=== PATIENT | female | born 1945 | race Caucasian/White ===

== ENCOUNTER 2019-10-12 11:40 | Emergency (ER) | payer OTHER, MEDICARE ==
[2019-10-12 11:56] VITALS: TEMP 98.5
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
[2019-10-12 14:45] VITALS: BP 123/78; PULSE 71; RESP 16
== END 2019-10-12 14:44 | disposition home or self-care (01) ==
LOC: EC 11:40
DX: M54.9 Dorsalgia, unspecified (principal); V43.62XA Car passenger injured in collision with other type car in traffic accident, initial encounter; W22.12XA Striking against or struck by front passenger side automobile airbag, initial encounter; Y92.410 Unspecified street and highway as the place of occurrence of the external cause; Y99.8 Other external cause status
CPT/HCPCS: 70450; 71046; 72072; 72125; 99284

== ENCOUNTER → 2020-02-29 | Outpatient (CLI) | payer MEDICARE, OTHER ==
--- NOTE | 2020-02-29 10:10 | US ---
EXAMINATION TYPE: US abdomen complete DATE OF EXAM: 02/29/2020 COMPARISON: NONE CLINICAL HISTORY: R14.0 Abdominal distention. Splenectomy 25-30 years ago, bloating, indigestion EXAM MEASUREMENTS: Liver Length: 14.1 cm Gallbladder Wall: 0.3 cm CBD: 0.4 cm Spleen: Surgically absent Right Kidney: 9.6 x 4.0 x 4.4 cm Left Kidney: 10.3 x 5.3 x 4.4 cm Pancreas: Obscured by bowel gas Liver: heterogeneous Gallbladder: no evidence of stones Evidence for sonographic Venegas's sign: no CBD: wnl Spleen: not visualized Right Kidney: cystic area upper pole = 1.0 x 1.0 x 1.0cm Left Kidney: no evidence of hydronephrosis or mass Upper IVC: wnl Abd Aorta: calcifications noted IMPRESSION: 1. Heterogeneous pattern to the liver is nonspecific could be seen with hepatic steatosis, diffuse he patocellular disease or hepatitis. Recommend CT scan of the abdomen. 2. No evidence of gallstones. 3. Simple appearing right renal cyst.
== END | disposition home or self-care (01) ==
LOC: RADUSWWP 09:20
PROVIDERS: ATTEND Internal Medicine
DX: N28.1 Cyst of kidney, acquired (principal); R93.2 Abnormal findings on diagnostic imaging of liver and biliary tract
CPT/HCPCS: 76700

== ENCOUNTER → 2020-04-10 | Outpatient (CLI) | payer MEDICARE, OTHER ==
--- NOTE | 2020-04-10 15:07 | MR ---
EXAMINATION TYPE: MR liver wo/w con DATE OF EXAM: 04/10/2020 COMPARISON: Correlation ultrasound 02/29/2020 HISTORY: 75-year-old female K76.0, Liver Steatosis Technique: Multiplanar, multisequence images of the abdomen were obtained before and after administra tion of 5.5 mL intravenous Gadavist gadolinium contrast. FINDINGS: Heart normal size without pericardial effusion. No pleural effusion. Liver normal size measuring 15.3 cm. No focal lesion seen. No biliary ductal dilatation. Portal venou s system is patent. On opposed phase T1-weighted sequences, there are geographic regions of signal drop within the liver of up to 200 signal intensity. Gallbladder, adrenal glands, left kidney, and pancreas show no gross abnormality. Benign 1.1 cm corti lucas cyst in each ureter and kidney. Spleen is small measuring only 2.7 cm, possible postsurgical/posttraumatic etiology. No upper abdominal lymphadenopathy, ascites fluid, gross bowel abnormality. IMPRESSION: 1. Signal changes within the liver compatible with geographic areas of hepatic steatosis. 2. No gallstones or biliary ductal dilatation. 3. Small nodular spleen measuring 2.7 cm, possible postsurgical or posttraumatic etiology. Clinically correlate.
== END | disposition home or self-care (01) ==
LOC: RADMRIMAIN 12:11
PROVIDERS: ATTEND Internal Medicine
DX: D73.89 Other diseases of spleen (principal)
CPT/HCPCS: 74183; A9585

== ENCOUNTER 2022-07-27 20:31 | Emergency (ER) | payer MEDICARE, OTHER ==
[2022-07-27 20:38] VITALS: RESP 18; TEMP 98.6
--- NOTE | 2022-07-27 20:59 | ED ---
General Adult HPI - General Chief complaint: Fall Stated complaint: Fall, shoulder pain Time Seen by Provider: 07/27/22 20:39 Source: patient, RN notes reviewed Mode of arrival: ambulatory Limitations: no limitations - History of Present Illness Initial comments: 77-year-old female past medical history of asthma presents to the emergency department with chief complaint of left shoulder pain. Patient states that she tripped on her shoe and fell on her left shoulder 5 days ago. She has not been seen for this. She states that she thought it would get better on its own. She has significant ecchymosis over the left shoulder. She states she has been Aleve for pain which is not helping. Denies numbness, tingling in her upper extremities. Denies hitting her head, loss consciousness, blood thinners. - Related Data Previous Rx's Medication Instructions Recorded Acetaminophen-Codeine 300-30mg 1 tab PO Q6H PRN #12 tablet 07/27/22 [Tylenol #3] Allergies Allergy/AdvReac Type Severity Reaction Status Date / Time No Known Allergies Allergy Verified 07/27/22 20:33 Review of Systems ROS Statement: Those systems with pertinent positive or pertinent negative responses have been documented in the HPI. ROS Other: All systems not noted in ROS Statement are negative. Past Medical History Past Medical History: Asthma History of Any Multi-Drug Resistant Organisms: None Reported Past Surgical History: Adenoidectomy, Tonsillectomy Additional Past Surgical History / Comment(s): splenectomy Past Psychological History: No Psychological Hx Reported Smoking Status: Former smoker Past Alcohol Use History: Occasional Past Drug Use History: None Reported General Exam Limitations: no limitations General appearance: alert, in no apparent distress Head exam: Present: atraumatic, normocephalic, normal inspection Eye exam: Present: normal appearance Respiratory exam: Present: normal lung sounds bilaterally. Absent: respiratory distress, wheezes, rales, rhonchi, stridor Cardiovascular Exam: Present: regular rate, normal rhythm, normal heart sounds. Absent: systolic murmur, diastolic murmur, rubs, gallop, clicks Extremities exam: Present: full ROM (Painful but full range of motion), tendern ess (left shoulder tenderness ), normal capillary refill, other (radial pulses 2+). Absent: normal inspection (ecchymosis left shoulder ) Skin exam: Present: other (Ecchymosis to left shoulder) Course Vital Signs 07/27/22 20:33 Temperature 98.6 F Pulse Rate 98 Respiratory 18 Rate Blood Pressure 144/76 O2 Sat by Pulse 96 Oximetry Medical Decision Making - Medical Decision Making Was pt. sent in by a medical professional or institution (, MIO, MANAGER SAS, urgent care, hospital, or skilled nursing...) When possible be specific @ -[No] Did you speak to anyone other than the patient for history (EMS, parent, family, police, friend...)? What history was obtained from this source @ -[No] Did you review nursing and triage notes (agree or disagree)? Why? @ -[I reviewed and agree with nursing and triage notes] Were old charts reviewed (outside hosp., previous admission, EMS record, old EKG, old radiological studies, urgent care reports/EKG's, skilled nursing records)? Report findings @ -[No old charts were reviewed] Differential Diagnosis (chest pain, altered mental status, abdominal pain women, abdominal pain men, vaginal bleeding, weakness, fever, dyspnea, syncope, headache, dizziness, GI bleed, back pain, seizure, CVA, palpatations, mental health, musculoskeletal)? @ -[Differential Musculoskeletal Muscular strain, contusion, ligament sprain, fracture, arthritis, septic arthritis, bursitis, cellulitis, muscle spasm, nerve compression, DVT, arterial occlusion, herpes zoster, electrolyte abnormality, tumor.... This is not meant to be in all inclusive list] EKG interpreted by me (3pts min.). @ -[None] X-rays interpreted by me (1pt min.). @ -[X-ray left shoulder showed mildly displaced distal clavicle fracture] CT interpreted by me (1pt min.). @ -[None done] U/S interpreted by me (1pt. min.). @ -[None done] What testing was considered but not performed or refused? (CT, X-rays, U/S, labs)? Why? @ -[None] What meds were considered but not given or refused? Why? @ -[None] Did you discuss the management of the patient with other professionals (professionals i.e. , MIO, MANAGER SAS, lab, RT, psych nurse, web content & social media manager, product manager financial services, teacher, correction officer head, family independence case manager)? Give summary @ -[No] Was smoking cessation discussed for >3mins.? @ -[No] Was critical care preformed (if so, how long)? @ -[No] Were there social determinants of health that impacted care today? How? (Homelessness, low income, unemployed, alcoholism, drug addiction, transportation, low edu. Level, literacy, decrease access to med. care, custodial, rehab)? @ -[No] Was there de-escalation of care discussed even if they declined (Discuss DNR or withdrawal of care, Hospice)? DNR status @ -[No] What co-morbidities impacted this encounter? (DM, HTN, Smoking, COPD, CAD, Cancer, CVA, ARF, Chemo, Hep., AIDS, mental health diagnosis, sleep apnea, morbid obesity)? @ -[None] Was patient admitted / discharged? Hospital course, mention meds given and route, prescriptions, significant lab abnormalities, going to OR and other pertinent info. @ -[Patient presented to the emergency department chief complaint of left shoulder pain. She states it started 5 days ago when she fell on it. She states this has a mechanical fall where she tripped over her feet. On exam, patient has significant ecchymosis to the left shoulder and distal clavicle. X- ray was obtained which showed mildly displaced distal clavicle fracture. Patient was given starter pack for Tylenol #3 with codeine. Prescription sent to pharmacy for 3 days of tylenol #3. Patient advised to follow-up on outpatient basis with her primary care physician and orthopedics. Case discussed with my attending, Dr. Griffith. Patient discharged in stable condition. ] Undiagnosed new problem with uncertain prognosis? @ -[No] Drug Therapy requiring intensive monitoring for toxicity (Heparin, Nitro, Insulin, Cardizem)? @ -[No] Were any procedures done? @ -[No] Diagnosis/symptom? @ -[Distal clavicle fracture] Acute, or Chronic, or Acute on Chronic? @ -Acute Uncomplicated (without systemic symptoms) or Complicated (systemic symptoms)? @ -Uncomplicated Side effects of treatment? @ -[No] Exacerbation, Progression, or Severe Exacerbation? @ -[No] Poses a threat to life or bodily function? How? (Chest pain, USA, NC, pneumonia, PE, COPD, DKA, ARF, appy, cholecystitis, CVA, Diverticulitis, Homicidal, Suicidal, threat to staff... and all critical care pts) @ -[No] Disposition Clinical Impression: Closed fracture of distal clavicle Disposition: HOME SELF-CARE Condition: Stable Instructions (If sedation given, give patient instructions): Fall Prevention (ED) Additional Instructions: Please return to the Emergency Department if symptoms worsen or any other concerns. Prescriptions: Acetaminophen-Codeine 300-30mg [Tylenol #3] 1 tab PO Q6H PRN #12 tablet PRN Reason: pain Is patient prescribed a controlled substance at d/c from ED?: Yes If prescribed controlled substance>3 days was MAPS reviewed?: Prescribed <3 Days Referrals: Valentine Leroy MD [Primary Care Provider] - 1-2 days Time of Disposition: 21:55
--- NOTE | 2022-07-27 21:38 | XR ---
EXAMINATION TYPE: XR shoulder complete LT DATE OF EXAM: 07/27/2022 9:11 PM INDICATION: Patient age:Female; 77 years old; Reason for study: fall on shoulder 5 days ago; COMPARISON: None TECHNIQUE: The left shoulder was examined in AP, internally rotated and scapular Y projections. FINDINGS: There is a distal left clavicle fracture with displacement 6 mm. No additional fractures identified. The chest is within normal limits. The humerus is intact. IMPRESSION: Distal left clavicle fracture with mild displacement.
[2022-07-27] MEDS ORDERED: ACET/COD 300 MG/30 MG STARTER PACK 6 TAB BTL PO STA (21:45)
[2022-07-27 22:14] VITALS: BP 137/78; PULSE 72
== END 2022-07-27 22:15 | disposition home or self-care (01) ==
LOC: EC 20:31
DX: S42.032A Displaced fracture of lateral end of left clavicle, initial encounter for closed fracture (principal); J45.909 Unspecified asthma, uncomplicated; Z87.891 Personal history of nicotine dependence; W01.0XXA Fall on same level from slipping, tripping and stumbling without subsequent striking against object, initial encounter
CPT/HCPCS: 99283

== ENCOUNTER 2022-09-17 13:23 | Inpatient (IN) | payer MEDICARE, OTHER ==
[2022-09-17] MEDS ORDERED: LORazepam 2 MG/ML INJ IV STA (13:41)
[2022-09-17] MEDS ORDERED: SODIUM CHLORIDE 0.9% 1,000 ML IV ONE (13:42)
[2022-09-17 14:03] LABS: Basophils % (A) 0 %; Eosinophils # (A) 0.3 k/uL (0-0.7); Eosinophils % (A) 2 %; HCT 40.6 % (34.0-46.0); HGB 13.5 gm/dL (11.4-16.0); Lymphocytes # (A) 0.9 k/uL (1.0-4.8); Lymphocytes % (A) 6 %; MCH 37.1 pg (25.0-35.0); MCHC 33.3 g/dL (31.0-37.0); MCV 111.6 fL (80.0-100.0); Macrocytosis Marked; Mean Platelet Volume 11.5; Monocytes # (A) 0.9 k/uL (0-1.0); Monocytes % (A) 6 %; Neutrophils # (A) 13.6 k/uL (1.3-7.7); Neutrophils % (A) 85 %; Platelet Count 147 k/uL (150-450); RBC 3.64 m/uL (3.80-5.40)
[2022-09-17 14:18] LABS: ALT 21 U/L (4-34); AST 43 U/L (14-36); African American GFR (CKD) >90 (>60 ml/min/1.73 sqM); Albumin 5.3 g/dL (3.5-5.0); Alkaline Phosphatase 70 U/L (38-126); Anion Gap 21 mmol/L; Blood Urea Nitrogen 30 mg/dL (7-17); Calcium 10.3 mg/dL (8.4-10.2); Carbon Dioxide 17 mmol/L (22-30); Chloride 103 mmol/L (98-107); Creatine Kinase 327 U/L (30-135); Glucose 118 mg/dL (74-99); Magnesium 1.9 mg/dL (1.6-2.3); Non-African American GFR(CKD) >90 (>60 ml/min/1.73 sqM); Potassium 4.3 mmol/L (3.5-5.1); Sodium 141 mmol/L (137-145); Total Bilirubin 2.2 mg/dL (0.2-1.3)
--- NOTE | 2022-09-17 14:26 | ED ---
General Adult HPI - General Chief complaint: Weakness Stated complaint: AMS Time Seen by Provider: 09/17/22 13:30 Source: patient, EMS, RN notes reviewed, old records reviewed Mode of arrival: EMS Limitations: altered mental status, physical limitation - History of Present Illness Initial comments: 77-year-old female presenting for evaluation. History is somewhat limited. Apparently neighbors had called paramedics with concerns for their neighbor, f requent falls, alcohol use. Patient states her last drink was 2 days ago. She is able to give significant history but I am uncertain of the accuracy of her history. She states that she fell within the past week on her left shoulder. There was head injury. Patient states she was not drinking over the past 2 days because she was preparing for a [employer] service. She states she typically drinks 2-3 drinks at a local bar. She denies chest pain or abdominal pain. Denies lower extremity pain. She is noted to have significant bruising over the left shoulder and pain with range of motion. - Related Data Home Medications Medication Instructions Recorded Confirmed Budesonide/Formoterol Fumarate 2 puff INHALATION RT-BID 09/17/22 09/17/22 [Symbicort 160-4.5 Mcg Inhaler] Previous Rx's Medication Instructions Recorded Acetaminophen-Codeine 300-30mg 1 tab PO Q6H PRN #12 tablet 07/27/22 [Tylenol #3] Allergies Allergy/AdvReac Type Severity Reaction Status Date / Time No Known Allergies Allergy Verified 09/17/22 14:14 Review of Systems ROS Statement: Those systems with pertinent positive or pertinent negative responses have been documented in the HPI. ROS Other: All systems not noted in ROS Statement are negative. Past Medical History Past Medical History: Asthma History of Any Multi-Drug Resistant Organisms: None Reported Past Surgical History: Adenoidectomy, Tonsillectomy Additional Past Surgical History / Comment(s): splenectomy Past Psychological History: No Psychological Hx Reported Smoking Status: Former smoker Past Alcohol Use History: Occasional Past Drug Use History: None Reported General Exam Limitations: altered mental status, physical limitation General appearance: alert, anxious, in distress Head exam: Present: atraumatic, normocephalic Eye exam: Present: normal appearance, PERRL Neck exam: Present: normal inspection. Absent: tenderness, meningismus Respiratory exam: Present: normal lung sounds bilaterally. Absent: respiratory distress, wheezes Cardiovascular Exam: Present: regular rate, normal rhythm GI/Abdominal exam: Present: soft. Absent: distended, tenderness, guarding Extremities exam: Absent: full ROM (Ecchymosis over the entire left shoulder decreased range of motion, ecchymosis appears several days old) Neurological exam: Present: alert, oriented X3, CN II-XII intact. Absent: motor sensory deficit Psychiatric exam: Present: anxious Skin exam: Present: warm, dry Course Vital Signs 09/17/22 09/17/22 13:31 14:39 Temperature 97.8 F Pulse Rate 98 98 Respiratory 18 18 Rate Blood Pressure 158/87 156/75 O2 Sat by Pulse 100 100 Oximetry - Reevaluation(s) Reevaluation #1: 09/17/22 15:02 Patient is being admitted for dehydration, alcohol withdrawal, not for her humerus fracture. Orthopedics will be placed on consult for evaluation. Medical Decision Making - Medical Decision Making Was pt. sent in by a medical professional or institution (, PA, FEED MILL SUPERVISOR, urgent care, hospital, or longterm...) When possible be specific @ -[No] Did you speak to anyone other than the patient for history (EMS, parent, family, police, friend...)? What history was obtained from this source @ -[No] Did you review nursing and triage notes (agree or disagree)? Why? @ -[I reviewed and agree with nursing and triage notes] Were old charts reviewed (outside hosp., previous admission, EMS record, old EKG, old radiological studies, urgent care reports/EKG's, longterm records)? Report findings @ -[No old charts were reviewed] Differential Diagnosis (chest pain, altered mental status, abdominal pain women, abdominal pain men, vaginal bleeding, weakness, fever, dyspnea, syncope, headache, dizziness, GI bleed, back pain, seizure, CVA, palpatations, mental health, musculoskeletal)? @ -[not applicable] EKG interpreted by me (3pts min.). @ -[EKG: Sinus rhythm, tremor artifact limiting assessment, rate of 90, MI interval 122, QRS duration 101, QTC [address] segment elevation. X-rays interpreted by me (1pt min.). @ -[X-ray of the left shoulder showing a displaced proximal humerus fracture x- ray of the chest is negative for focal pneumonia, no pneumothorax, no traumatic injury] CT interpreted by me (1pt min.). @ -[CT brain and C-spine performed negative for intracranial hemorrhage or mass effect, no cervical fracture subluxation U/S interpreted by me (1pt. min.). @ -[None done] What testing was considered but not performed or refused? (CT, X-rays, U/S, labs)? Why? @ -[None] What meds were considered but not given or refused? Why? @ -[None] Did you discuss the management of the patient with other professionals (professionals i.e. Dr., PA, FEED MILL SUPERVISOR, lab, RT, psych nurse, social science research assistant, furnace process supervisor, teacher, textile technical officer, major case detective)? Give summary @ -[Dr. Leroy, and Dr. Anand Was smoking cessation discussed for >3mins.? @ -[No] Was critical care preformed (if so, how long)? @ -[No] Were there social determinants of health that impacted care today? How? (Homelessness, low income, unemployed, alcoholism, drug addiction, transportation, low edu. Level, literacy, decrease access to med. care, usp, rehab)? @ -[Alcoholism Was there de-escalation of care discussed even if they declined (Discuss DNR or withdrawal of care, Hospice)? DNR status @ -[No] What co-morbidities impacted this encounter? (DM, HTN, Smoking, COPD, CAD, Cancer, CVA, ARF, Chemo, Hep., AIDS, mental health diagnosis, sleep apnea, morbid obesity)? @ -[Alcoholism Was patient admitted / discharged? Hospital course, mention meds given and route, prescriptions, significant lab abnormalities, going to OR and other pertinent info. @ -[77-year-old female with altered mental status, tremor, suspect alcohol withdrawal. Patient is having some hallucinations, suspect a degree of delirium tremens. She also has significant trauma to the left shoulder x-ray showing a displaced proximal humerus fracture. Additional imaging of the brain and C- spine is negative for traumatic injury. Patient placed on benzodiazepines for alcohol withdrawal. She is placed on IV fluids for hydration. She'll be admitted to the ICU. Undiagnosed new problem with uncertain prognosis? @ -[No] Drug Therapy requiring intensive monitoring for toxicity (Heparin, Nitro, Insulin, Cardizem)? @ -[No] Were any procedures done? @ -[No] Diagnosis/symptom? @ -[Alcohol withdrawal, impending DTs, left humerus fracture Acute, or Chronic, or Acute on Chronic? @ -[Acute Uncomplicated (without systemic symptoms) or Complicated (systemic symptoms)? @ -[Complicated Side effects of treatment? @ -[No] Exacerbation, Progression, or Severe Exacerbation? @ -[No] Poses a threat to life or bodily function? How? (Chest pain, USA, MD, pneumonia, PE, COPD, DKA, ARF, appy, cholecystitis, CVA, Diverticulitis, Homicidal, Suicidal, threat to staff... and all critical care pts) @ -[Yes, delirium tremens - Lab Data Result diagrams: 09/17/22 13:48 09/17/22 13:48 Lab Results 09/17/22 09/17/22 09/17/22 Range/Units 13:48 13:48 13:48 WBC 16.0 H (3.8-10.6) k/uL RBC 3.64 L (3.80-5.40) m/uL Hgb 13.5 (11.4-16.0) gm/dL Hct 40.6 (34.0-46.0) % MCV 111.6 H (80.0-100.0) fL MCH 37.1 H (25.0-35.0) pg MCHC 33.3 (31.0-37.0) g/dL RDW 14.0 (11.5-15.5) % Plt Count 147 L (150-450) k/uL MPV 11.5 Macrocytosis Marked A PT 9.4 (9.0-12.0) sec INR 0.9 (<1.2) APTT 21.0 L (22.0-30.0) sec Sodium 141 (137-145) mmol/L Potassium 4.3 (3.5-5.1) mmol/L Chloride 103 (98-107) mmol/L Carbon Dioxide 17 L (22-30) mmol/L Anion Gap 21 mmol/L BUN 30 H (7-17) mg/dL Creatinine 0.48 L (0.52-1.04) mg/dL Est GFR (CKD-EPI)AfAm >90 (>60 ml/min/1.73 sqM) Est GFR (CKD-EPI)NonAf >90 (>60 ml/min/1.73 sqM) Glucose 118 H (74-99) mg/dL Plasma Lactic Acid Farzad (0.7-2.0) mmol/L Calcium 10.3 H (8.4-10.2) mg/dL Magnesium 1.9 (1.6-2.3) mg/dL Total Bilirubin 2.2 H (0.2-1.3) mg/dL AST 43 H (14-36) U/L ALT 21 (4-34) U/L Alkaline Phosphatase 70 (38-126) U/L Creatine Kinase 327 H (30-135) U/L Total Protein 9.0 H (6.3-8.2) g/dL Albumin 5.3 H (3.5-5.0) g/dL 09/17/22 Range/Units 13:48 WBC (3.8-10.6) k/uL RBC (3.80-5.40) m/uL Hgb (11.4-16.0) gm/dL Hct (34.0-46.0) % MCV (80.0-100.0) fL MCH (25.0-35.0) pg MCHC (31.0-37.0) g/dL RDW (11.5-15.5) % Plt Count (150-450) k/uL MPV Macrocytosis PT (9.0-12.0) sec INR (<1.2) APTT (22.0-30.0) sec Sodium (137-145) mmol/L Potassium (3.5-5.1) mmol/L Chloride (98-107) mmol/L Carbon Dioxide (22-30) mmol/L Anion Gap mmol/L BUN (7-17) mg/dL Creatinine (0.52-1.04) mg/dL Est GFR (CKD-EPI)AfAm (>60 ml/min/1.73 sqM) Est GFR (CKD-EPI)NonAf (>60 ml/min/1.73 sqM) Glucose (74-99) mg/dL Plasma Lactic Acid Farzad 2.0 (0.7-2.0) mmol/L Calcium (8.4-10.2) mg/dL Magnesium (1.6-2.3) mg/dL Total Bilirubin (0.2-1.3) mg/dL AST (14-36) U/L ALT (4-34) U/L Alkaline Phosphatase (38-126) U/L Creatine Kinase (30-135) U/L Total Protein (6.3-8.2) g/dL Albumin (3.5-5.0) g/dL Critical Care Time Critical Care Time: Yes Total Critical Care Time: 35 Disposition Clinical Impression: Dehydration, Humerus fracture, Alcohol withdrawal delirium Disposition: ADMITTED IP TO THIS [facility] Condition: Serious Is patient prescribed a controlled substance at d/c from ED?: No Referrals: Valentine Leroy MD [Primary Care Provider] - 1-2 days Time of Disposition: 15:01
[2022-09-17 14:28] LABS: INR 0.9 (<1.2); Prothrombin Time 9.4 sec (9.0-12.0)
--- NOTE | 2022-09-17 14:31 | CT ---
EXAMINATION TYPE: CT brain cspine wo con CT DLP: 1382.5 mGycm, Automated exposure control for dose reduction was used. DATE OF EXAM: 09/17/2022 2:15 PM COMPARISON: 10/12/2019 CLINICAL INDICATION:Female, 77 years old with history of fall; Fall, AMS TECHNIQUE: Brain: Multiple axial CT images of the brain were obtained without IV contrast. Cspine: Axial CT images from the skull base to the inferior aspect of T2 we obtained without intraven ous contrast. Coronal and sagittal reformatted images were also reviewed. FINDINGS: Brain: Extra-axial spaces: No abnormal extra-axial fluid collections. Ventricular system: Dilatation in proportion to cerebral atrophy. Cerebral parenchyma: Cerebral atrophy. No acute intraparenchymal hemorrhage or mass effect. The vásquez -white junction is well differentiated. Scattered hypoattenuating areas are seen within the white mat ter. Cerebellum: Unremarkable. Mass effect: No evidence of midline shift. Intracranial vasculature: Atherosclerotic calcifications of the intracranial vessels. Soft tissues: Normal. Calvarium/osseous structures: No depressed skull fracture. Paranasal sinuses and mastoid air cells: Clear. Visualized orbits: Bilateral aphakia Cervical spine: Fracture: None. Osseous structures: Multilevel degenerative disc disease changes with endplate spurring and disc oste ophyte complex's. Vertebral alignment: Within normal limits. Spinal canal/Neural Foramina: Disc osteophyte complexes at C4-C5 and C5-C6 with at least mild spinal canal stenosis. Facet joint uncovertebral joint arthropathy scattered throughout the cervical spine w ith varying degrees of neural foraminal stenosis. Neck soft tissues: Prevertebral soft tissues are within normal limits. Other: The airway is patent. Stable right upper lobe stable right upper lobe 3 mm pulmonary nodule. IMPRESSION: 1. No acute intracranial process. 2. Nonspecific white matter changes, likely secondary to chronic small vessel ischemic disease. 3. No evidence of cervical spine fracture. 4. Moderate multilevel degenerative disc disease.
[2022-09-17] MEDS: SODIUM CHLORIDE 0.9% 1,000 ML IV SCH (14:41)
[2022-09-17] MEDS ORDERED: LORazepam 2 MG/ML INJ IV PRN ×3 (14:43)
[2022-09-17] MEDS ORDERED: THIAMINE 100 MG/ML 2 ML VIAL IM STA (14:43)
[2022-09-17] MEDS ORDERED: NALOXONE 0.4 MG/ML 1 ML VIAL IV PRN (14:50)
--- NOTE | 2022-09-17 15:05 | XR ---
EXAMINATION TYPE: XR chest 1V DATE OF EXAM: 09/17/2022 COMPARISON: 10/12/2019 HISTORY: 77-year-old female with weakness TECHNIQUE: Single frontal view of the chest is obtained. FINDINGS: Heart limits of normal in size. Hyperinflation. Aorta and pulmonary vasculature within nor mal limits. No consolidation or pleural effusion. IMPRESSION: There may be underlying COPD. No acute process seen.
--- NOTE | 2022-09-17 15:08 | XR ---
EXAMINATION TYPE: XR shoulder complete 3 views LT DATE OF EXAM: 09/17/2022 Comparison: 07/27/2022 Clinical History: 77-year-old female with pain after fall Findings: Redemonstrated transverse fracture distal left clavicle. There are ongoing healing changes by fractur e margins are slightly sclerotic and fracture lucency remains well visualized. There is a mildly comminuted transverse fracture involving the surgical neck of the proximal left hum erus with yossi rotation of the humeral head and anterior displacement of nearly 2 cm. Prominent late ral sided soft tissue bruising. Impression: 1. 2 part fracture proximal left humerus (transverse surgical neck fracture). Associated mild comminu tion, nearly 2 cm of anterior displacement, and prominent rotation of the humeral head component. 2. The transverse fracture of the distal left clavicle is still healing. No significant bony bridging seen. 3. Prominent lateral sided soft tissue bruising.
[2022-09-17 16:50] LABS: Glucose,Whole Blood 101 mg/dL (70-110)
[2022-09-17] MEDS ORDERED: Potassium Replacement Protocol 1 EACH MISC MISCELLANE PRN (18:03)
[2022-09-17] MEDS ORDERED: Magnesium Replacement Protocol 1 EACH MISC MISCELLANE PRN (18:03)
--- NOTE | 2022-09-17 18:27 | P.CNPUL ---
History of Present Illness Consult date: 09/17/22 Chief complaint: Altered mentation History of present illness: 77-year-old female patient who came into numerous department with altered mentation, frequent falls and the humeral fracture. Apparently, the neighbors called the paramedics due to concerns of her having frequent falls. Apparently, this patient is an alcoholic and she drinks alcohol on a daily basis. She quit drinking approximately 2 weeks ago as she was preparing for the [facility] service. She was having frequent falls. She was altered. She came into the emergency and she had several bruises on her buttocks, left shoulder and elbows and knees. She was hemodynamically stable. She was altered and confused. No agitation. White cell count was 60 with a hemoglobin 15.5 and a platelet count of 147. BUN was 30 with a creatinine of 0.4. Sodium was at 141. LFTs were n ormal. The CPK was 327. Albumin was 5.3 with a total protein of 9.0. Magnesium level was 1.9. Lactic acid level was at 2.0. CAT scan of the brain and cervical spine showed no acute abnormalities. X-ray of the shoulder showed fracture of the proximal left humerus associated with some mild comminution and nearly 2 cm anterior displacement and prominent dilatation of the humeral head Review of Systems Historian, unable to provide any history, please refer to the above for further details Past Medical History Past Medical History: Asthma Additional Past Medical History / Comment(s): Alcoholism History of Any Multi-Drug Resistant Organisms: None Reported Past Surgical History: Adenoidectomy, Tonsillectomy Additional Past Surgical History / Comment(s): splenectomy Past Psychological History: No Psychological Hx Reported Smoking Status: Former smoker Past Alcohol Use History: Occasional Past Drug Use History: None Reported Medications and Allergies Home Medications Medication Instructions Recorded Confirmed Type Acetaminophen-Codeine 300-30mg 1 tab PO Q6H PRN #12 tablet 07/27/22 09/17/22 Rx [Tylenol #3] Budesonide/Formoterol Fumarate 2 puff INHALATION RT-BID 09/17/22 09/17/22 History [Symbicort 160-4.5 Mcg Inhaler] Allergies Allergy/AdvReac Type Severity Reaction Status Date / Time No Known Allergies Allergy Verified 09/17/22 14:14 Physical Exam Vitals: Vital Signs Temp Pulse Resp BP Pulse Ox 09/17/22 15:30 92 20 135/70 99 09/17/22 14:39 98 18 156/75 100 09/17/22 13:31 97.8 F 98 18 158/87 100 Intake and Output 09/17/22 09/17/22 09/17/22 06:59 14:59 22:59 Other: Weight 56.699 kg Calm and comfortable with a body mass in the 20.8. Some Occasional Resting Tremors. No Agitation. Unable to hold a conversation. Head exam was generally normal. There was no scleral icterus or corneal arcus. Mucous membranes were moist. Neck was supple and without jugular venous distension, thyromegaly, or carotid bruits. Carotids were easily palpable bilaterally. There was no adenopathy. Lungs were clear to auscultation and percussion, and with normal diaphragmatic excursion. No wheezes or rales were noted. Cardiac exam revealed the PMI to be normally situated and sized. The rhythm was regular and no extrasystoles were noted during several minutes of auscultation. The first and second heart sounds were normal and physiologic splitting of the second heart sound was noted. There were no murmurs, rubs, clicks, or gallops. Abdominal exam revealed normal bowel sounds. The abdomen was soft, non-tender, and without masses, organomegaly, or appreciable enlargement of the abdominal aorta. Extremities reveals some bruising and swelling at the level of the left henry ulder. Pulses are equal and symmetrical in all 4 extremities. Bruises over the elbows and the knees bilaterally. Skin various areas of bruising are seen. No open wounds. There is also bruising in the buttocks Neurologically, she is moving all 4 extremities. Pupils are equal reactive to light. No facial asymmetry. No Babinski. No clonus. She is encephalopathic. She has some tremors. No seizure activity has been witnessed. No agitation. States few words. Unable to answer questions appropriately. Results - Laboratory Findings CBC and BMP: 09/17/22 13:48 09/17/22 13:48 PT/INR, D-dimer PT 9.4 sec (9.0-12.0) 09/17/22 13:48 INR 0.9 (<1.2) 09/17/22 13:48 Abnormal lab findings: Abnormal Labs 09/17/22 09/17/22 09/17/22 13:48 13:48 13:48 WBC 16.0 H RBC 3.64 L MCV 111.6 H MCH 37.1 H Plt Count 147 L Neutrophils # 13.6 H Lymphocytes # 0.9 L Macrocytosis Marked A APTT 21.0 L Carbon Dioxide 17 L BUN 30 H Creatinine 0.48 L Glucose 118 H Calcium 10.3 H Total Bilirubin 2.2 H AST 43 H Creatine Kinase 327 H Total Protein 9.0 H Albumin 5.3 H - Diagnostic Findings Chest x-ray: image reviewed Assessment and Plan Plan: Altered mental status, alcohol withdrawal encephalopathy/delirium tremens. No significant agitation. Left humeral fracture Frequent falls secondary to above Alcoholism Chronic bronchial asthma maternal Symbicort on outpatient basis Mild elevation of the CPK secondary to falls Anion gap metabolic acidosis with mild lactic acid level elevation. Alcohol level is negative. Plan Orthopedic consultation regarding the humeral fracture Continue thiamine Continue IV fluids Ativan for any agitation or withdrawal symptoms Infectious electrolytes Monitor neurologic functions Check urine drug screen and urinalysis CAT scan of the brain and cervical spine shows no acute abnormalities We'll keep the patient ICU for now. Further monitoring Heparin subcu for DVT prophylaxis
[2022-09-17] MEDS: HEPARIN SODIUM,PORCINE/PF 5,000 UNIT/0.5 ML SYRINGE SQ SCH (20:30)
[2022-09-17] MEDS: TOBRAMYCIN 0.3% OPHTH DROPS 5 ML BTL LEFT EYE SCH (20:32)
[2022-09-17 21:02] LABS: Appearance,Urine Clear (Clear); Bilirubin,Urine 1+ (Negative); Blood,Urine Trace (Negative); Color,Urine Yellow; Glucose,Urine (UA) Negative (Negative); Leukocyte Esterase,Urine Large (Negative); Mucus,Urine Rare /hpf; Nitrite,Urine Negative (Negative); Protein,Urine 1+ (Negative); RBC,Urine 3 /hpf (0-5); Specific Gravity,Urine 1.029 (1.001-1.035); Squamous Epithelial Cell,Urine 1 /hpf (0-4); Transitional Epi Cells,Urine <1 /hpf (0-1); WBC,Urine 79 /hpf (0-5)
[2022-09-17] MEDS: SYMBICORT 160-4.5 MCG INHALER INHALATION SCH (21:05)
[2022-09-17 21:11] LABS: Ketones,Urine 3+ (Negative)
[2022-09-17 21:23] LABS: Amphetamine Screen,Urine Not Detected (NotDetected); Barbiturate Screen,Urine Not Detected (NotDetected); Benzodiazepines Screen,Urine Detected (NotDetected); Cocaine Screen,Urine Not Detected (NotDetected); Methadone Screen, Urine Not Detected (NotDetected); Opiate Screen,Urine Not Detected (NotDetected); Oxycodone Screen, Urine Not Detected (NotDetected); Phencyclidine Screen,Urine Not Detected (NotDetected); Tricyclic Antidepressant,Urine Not Detected (NotDetected); Urn Cannabinoid Scrn Not Detected (NotDetected)
[2022-09-18 05:29] LABS: HCT 31.9 % (34.0-46.0); HGB 10.6 gm/dL (11.4-16.0); MCH 37.6 pg (25.0-35.0); MCHC 33.3 g/dL (31.0-37.0); Macrocytosis Marked; Mean Platelet Volume 12.3; Platelet Count 122 k/uL (150-450); RBC 2.83 m/uL (3.80-5.40); RDW 14.3 % (11.5-15.5)
[2022-09-18 05:33] LABS: African American GFR (CKD) >90 (>60 ml/min/1.73 sqM); Anion Gap 8 mmol/L; Blood Urea Nitrogen 18 mg/dL (7-17); Calcium 8.7 mg/dL (8.4-10.2); Carbon Dioxide 23 mmol/L (22-30); Chloride 107 mmol/L (98-107); Glucose 95 mg/dL (74-99); Magnesium 1.6 mg/dL (1.6-2.3); Non-African American GFR(CKD) >90 (>60 ml/min/1.73 sqM); Potassium 3.2 mmol/L (3.5-5.1); Sodium 138 mmol/L (137-145)
[2022-09-18] MEDS ORDERED: Potassium Replacement Protocol 1 EACH MISC MISCELLANE PRN (05:44)
[2022-09-18] MEDS: SODIUM CHLORIDE 0.9% 1,000 ML IV SCH (05:51)
[2022-09-18] MEDS: TOBRAMYCIN 0.3% OPHTH DROPS 5 ML BTL LEFT EYE SCH ×4 (05:51→12:41)
[2022-09-18] MEDS: POTASSIUM CHLORIDE ER 20 MEQ TAB.ER PO SCH ×3 (06:26→10:00)
[2022-09-18] MEDS ORDERED: Magnesium Replacement Protocol 1 EACH MISC MISCELLANE PRN (07:59)
[2022-09-18] MEDS: SYMBICORT 160-4.5 MCG INHALER INHALATION SCH ×2 (08:19→20:34)
--- NOTE | 2022-09-18 09:27 | P.PN ---
Subjective Progress Note Date: 09/18/22 77-year-old female patient who came into numerous department with altered mentation, frequent falls and the humeral fracture. Apparently, the neighbors called the paramedics due to concerns of her having frequent falls. Apparently, this patient is an alcoholic and she drinks alcohol on a daily basis. She quit drinking approximately 2 weeks ago as she was preparing for the [facility] service. She was having frequent falls. She was altered. She came into the emergency and she had several bruises on her buttocks, left shoulder and elbows and knees. She was hemodynamically stable. She was altered and confused. No agitation. White cell count was 60 with a hemoglobin 15.5 and a platelet count of 147. BUN was 30 with a creatinine of 0.4. Sodium was at 141. LFTs were normal. The CPK was 327. Albumin was 5.3 with a total protein of 9.0. Magnesium level was 1.9. Lactic acid level was at 2.0. CAT scan of the brain and cervical spine showed no acute abnormalities. X-ray of the shoulder showed fracture of the proximal left humerus associated with some mild comminution and nearly 2 cm anterior displacement and prominent dilatation of the humeral head On today's evaluation of 09/18/2022, Shannon is wide awake and communicating and she is awake and alert and oriented 3. She states that she had limited or drinking. She was not drinking in excess. She had fallen and as a result she has also fractured her left humerus. Also evaluated the patient and the patient currently is wearing his sling and she was ultimately need an ORIF. Meanwhile, she is hemodynamically stable. No agitation. No seizure activity. She is not requiring any sedative medications. She is hemodynamically stable and a normal sinus rhythm. The WBC count is at 11.9 with a hemoglobin of 10.6 and a platelet count of 122. BUN is at 18 with a creatinine of 0.35 and a sodium level is at 138. Potassium levels at 3.2 that needs to be replaced. UA showed 79 WBCs and urine cultures are pending. Urine drug screen is positive for benzodiazepines. Alcohol level is negative. Meanwhile, no other significant events. This morning she is sitting up on a chair and she is having her excess. She is on normal saline at the rate of 100 mL an hour. She is also on thiamine. We suspected a conjunctivitis and we offered her TobraDex eyedrops to left eye. She has not required any Ativan. She is taking Symbicort regarding her asthma and this was resumed. She is on heparin subcu for DVT prophylaxis. Objective - Vital Signs Vital signs: Vital Signs Temp 98 F 09/18/22 04:00 Pulse 75 09/18/22 07:00 Resp 16 09/18/22 07:00 BP 122/61 09/18/22 07:00 Pulse Ox 100 09/18/22 08:31 FiO2 Intake & Output 09/17/22 09/18/22 09/18/22 18:59 06:59 18:59 Intake Total 175 1200 100 Output Total 130 0 Balance 175 1070 100 Weight 56.699 kg 56.4 kg Intake: IV 175 1200 100 Sodium Chloride 0.9% 1, 175 1200 100 000 ml @ 100 mls/hr IV . Q10H KEE Rx#:[id number] Output: Urine 130 0 Other: Voiding Method External Catheter External Catheter # Voids 1 - Exam Calm and comfortable with a body mass in the 20.8. OA x3 Head exam was generally normal. There was no scleral icterus or corneal arcus. Mucous membranes were moist. Neck was supple and without jugular venous distension, thyromegaly, or carotid bruits. Carotids were easily palpable bilaterally. There was no adenopathy. Lungs were clear to auscultation and percussion, and with normal diaphragmatic excursion. No wheezes or rales were noted. Cardiac exam revealed the PMI to be normally situated and sized. The rhythm was regular and no extrasystoles were noted during several minutes of auscultation. The first and second heart sounds were normal and physiologic splitting of the second heart sound was noted. There were no murmurs, rubs, clicks, or gallops. Abdominal exam revealed normal bowel sounds. The abdomen was soft, non-tender, and without masses, organomegaly, or appreciable enlargement of the abdominal aorta. Extremities reveals some bruising and swelling at the level of the left shoulder. Pulses are equal and symmetrical in all 4 extremities. Bruises over the elbows and the knees bilaterally. Skin various areas of bruising are seen. No open wounds. There is also bruising in the buttocks Neurologically, she is moving all 4 extremities. Pupils are equal reactive to light. No facial asymmetry. No Babinski. No clonus. She is encephalopathic. She has some tremors. No seizure activity has been witnessed. No agitation. She is OA x3 - Labs CBC & Chem 7: 09/18/22 04:49 09/18/22 04:49 Labs: Abnormal Lab Results - Last 24 Hours (Table) 09/17/22 09/17/22 09/17/22 Range/Units 13:48 13:48 13:48 WBC 16.0 H (3.8-10.6) k/uL RBC 3.64 L (3.80-5.40) m/uL Hgb (11.4-16.0) gm/dL Hct (34.0-46.0) % MCV 111.6 H (80.0-100.0) fL MCH 37.1 H (25.0-35.0) pg Plt Count 147 L (150-450) k/uL Neutrophils # 13.6 H (1.3-7.7) k/uL Lymphocytes # 0.9 L (1.0-4.8) k/uL Macrocytosis Marked A APTT 21.0 L (22.0-30.0) sec Potassium (3.5-5.1) mmol/L Carbon Dioxide 17 L (22-30) mmol/L BUN 30 H (7-17) mg/dL Creatinine 0.48 L (0.52-1.04) mg/dL Glucose 118 H (74-99) mg/dL Calcium 10.3 H (8.4-10.2) mg/dL Total Bilirubin 2.2 H (0.2-1.3) mg/dL AST 43 H (14-36) U/L Creatine Kinase 327 H (30-135) U/L Total Protein 9.0 H (6.3-8.2) g/dL Albumin 5.3 H (3.5-5.0) g/dL Urine Protein (Negative) Urine Ketones (Negative) Urine Blood (Negative) Urine Bilirubin (Negative) Ur Leukocyte Esterase (Negative) Urine WBC (0-5) /hpf Urine Mucus (None) /hpf U Benzodiazepines Scrn (NotDetected) 09/17/22 09/17/22 09/18/22 Range/Units 18:26 19:35 04:49 WBC 11.9 H (3.8-10.6) k/uL RBC 2.83 L (3.80-5.40) m/uL Hgb 10.6 L (11.4-16.0) gm/dL Hct 31.9 L (34.0-46.0) % MCV 113.0 H (80.0-100.0) fL MCH 37.6 H (25.0-35.0) pg Plt Count 122 L (150-450) k/uL Neutrophils # (1.3-7.7) k/uL Lymphocytes # (1.0-4.8) k/uL Macrocytosis Marked A APTT (22.0-30.0) sec Potassium (3.5-5.1) mmol/L Carbon Dioxide (22-30) mmol/L BUN (7-17) mg/dL Creatinine (0.52-1.04) mg/dL Glucose (74-99) mg/dL Calcium (8.4-10.2) mg/dL Total Bilirubin (0.2-1.3) mg/dL AST (14-36) U/L Creatine Kinase (30-135) U/L Total Protein (6.3-8.2) g/dL Albumin (3.5-5.0) g/dL Urine Protein 1+ H (Negative) Urine Ketones 3+ H (Negative) Urine Blood Trace H (Negative) Urine Bilirubin 1+ H (Negative) Ur Leukocyte Esterase Large H (Negative) Urine WBC 79 H (0-5) /hpf Urine Mucus Rare H (None) /hpf U Benzodiazepines Scrn Detected H (NotDetected) 09/18/22 Range/Units 04:49 WBC (3.8-10.6) k/uL RBC (3.80-5.40) m/uL Hgb (11.4-16.0) gm/dL Hct (34.0-46.0) % MCV (80.0-100.0) fL MCH (25.0-35.0) pg Plt Count (150-450) k/uL Neutrophils # (1.3-7.7) k/uL Lymphocytes # (1.0-4.8) k/uL Macrocytosis APTT (22.0-30.0) sec Potassium 3.2 L (3.5-5.1) mmol/L Carbon Dioxide (22-30) mmol/L BUN 18 H (7-17) mg/dL Creatinine 0.35 L (0.52-1.04) mg/dL Glucose (74-99) mg/dL Calcium (8.4-10.2) mg/dL Total Bilirubin (0.2-1.3) mg/dL AST (14-36) U/L Creatine Kinase (30-135) U/L Total Protein (6.3-8.2) g/dL Albumin (3.5-5.0) g/dL Urine Protein (Negative) Urine Ketones (Negative) Urine Blood (Negative) Urine Bilirubin (Negative) Ur Leukocyte Esterase (Negative) Urine WBC (0-5) /hpf Urine Mucus (None) /hpf U Benzodiazepines Scrn (NotDetected) Assessment and Plan Plan: Altered mental status, alcohol withdrawal encephalopathy/delirium tremens. No significant agitation. Mental status is back to normal and the patient is communicating and she is alert and oriented 3 Left humeral fracture, secondary to fall. The patient has extensive soft tissue swelling and orthopedic surgery evaluated the patient and we are looking into surgical correction/ORIF at the later stage probably on outpatient basis. Meanwhile pain is under adequate control and the patient is wearing his sling. Frequent falls secondary to above Alcoholism Chronic bronchial asthma maternal Symbicort on outpatient basis Mild elevation of the CPK secondary to falls Anion gap metabolic acidosis with mild lactic acid level elevation. Alcohol level is negative. Plan Orthopedic consultation regarding the humeral fracture, as mentioned surgical intervention at the later stage/ORIF for a humeral fracture Continue thiamine Continue IV fluids Ativan for any agitation or withdrawal symptoms, no signs of any acute delirium tremens for now Replace potassium Monitor neurologic functions Urine culture Replace magnesium CAT scan of the brain and cervical spine shows no acute abnormalities Heparin subcu for DVT prophylaxis She may transfer out of the intensive care unit today. She can go to medical surgical floor.
--- NOTE | 2022-09-18 09:30 | P.CNOR ---
History of Present Illness - [facility] Consult date: 09/18/22 Consult reason: fracture (Left proximal humerus fracture) History of present illness: Patient is a 77-year-old female who was brought in to [facility] on 09/17/2022 by EMS with concerns from her neighbors due to altered mental status and frequent falls. Patient was evaluated in the emergency room at that time, imaging and lab tests were done. Patient is known history of chronic alcohol use. She is a very poor historian. Patient was admitted to the hospital for further evaluation, she was actually placed in the ICU with possible developing DTs. Imaging test to demonstrate a left clavicle fracture and left proximal humerus fracture. Apparently the patient had a fall back in June, she was seen in the emergency room on 07/27/2022, she was placed in an arm sling and advised to follow-up with orthopedics. She has not followed up with an orthopedic provider. At bedside today in the ICU, patient is an AO 3. She complains of pain to the left shoulder. She is not wearing arm sling at this time. Patient is a very poor historian, she cannot remember the exact time that she fell and injured her shoulder. She states that she has been dealing with a lot of dizziness and lightheadedness when ambulating. Patient does live alone, she does not drive. She does have friends and family that do check in with her on a daily basis. Size left shoulder pain, patient denies any other orthopedic problems or complaints. Patient denies any previous surgeries the left upper extremity. She denies any numbness or tingling to the left upper extremity at this time. Review of Systems Constitutional: Reports as per HPI Past Medical History Past Medical History: Asthma Additional Past Medical History / Comment(s): Alcoholism History of Any Multi-Drug Resistant Organisms: None Reported Past Surgical History: Adenoidectomy, Tonsillectomy Additional Past Surgical History / Comment(s): splenectomy Past Anesthesia/Blood Transfusion Reactions: No Reported Reaction Past Psychological History: No Psychological Hx Reported Smoking Status: Former smoker Past Alcohol Use History: Occasional Past Drug Use History: None Reported Medications and Allergies Home Medications Medication Instructions Recorded Confirmed Type Acetaminophen-Codeine 300-30mg 1 tab PO Q6H PRN #12 tablet 07/27/22 09/17/22 Rx [Tylenol #3] Budesonide/Formoterol Fumarate 2 puff INHALATION RT-BID 09/17/22 09/17/22 History [Symbicort 160-4.5 Mcg Inhaler] Allergies Allergy/AdvReac Type Severity Reaction Status Date / Time No Known Allergies Allergy Verified 09/17/22 14:14 Physical Examination Left upper extremity: Significant ecchymosis and swelling present throughout the proximal left humerus down into the arm, elbow and upper forearm. There is no obvious open lesions or sores visualized Range of motion of the shoulder is very limited at this time due to pain. Patient has significant tenderness with palpation of the proximal humerus and distal clavicle. Pronation and supination are intact and forearm, no tenderness palpation throughout the forearm. Extension and flexion are intact at the elbow, there is no tenderness with palpation surrounding the elbow. Pronation and supination are intact, no tenderness with palpation throughout the forearm. Flexion and extension are intact the wrist, no tenderness palpation throughout the wrist or hand. Patient is able to make a full fist to wiggle all fingers with no difficulty Radial and ulnar pulses are 2+ Sensory exam light touch left extremity is intact Results - Labs Labs: Abnormal Lab Results - Last 24 Hours (Table) 09/17/22 09/17/22 09/17/22 Range/Units 13:48 13:48 13:48 WBC 16.0 H (3.8-10.6) k/uL RBC 3.64 L (3.80-5.40) m/uL Hgb (11.4-16.0) gm/dL Hct (34.0-46.0) % MCV 111.6 H (80.0-100.0) fL MCH 37.1 H (25.0-35.0) pg Plt Count 147 L (150-450) k/uL Neutrophils # 13.6 H (1.3-7.7) k/uL Lymphocytes # 0.9 L (1.0-4.8) k/uL Macrocytosis Marked A APTT 21.0 L (22.0-30.0) sec Potassium (3.5-5.1) mmol/L Carbon Dioxide 17 L (22-30) mmol/L BUN 30 H (7-17) mg/dL Creatinine 0.48 L (0.52-1.04) mg/dL Glucose 118 H (74-99) mg/dL Calcium 10.3 H (8.4-10.2) mg/dL Total Bilirubin 2.2 H (0.2-1.3) mg/dL AST 43 H (14-36) U/L Creatine Kinase 327 H (30-135) U/L Total Protein 9.0 H (6.3-8.2) g/dL Albumin 5.3 H (3.5-5.0) g/dL Urine Protein (Negative) Urine Ketones (Negative) Urine Blood (Negative) Urine Bilirubin (Negative) Ur Leukocyte Esterase (Negative) Urine WBC (0-5) /hpf Urine Mucus (None) /hpf U Benzodiazepines Scrn (NotDetected) 09/17/22 09/17/22 09/18/22 Range/Units 18:26 19:35 04:49 WBC 11.9 H (3.8-10.6) k/uL RBC 2.83 L (3.80-5.40) m/uL Hgb 10.6 L (11.4-16.0) gm/dL Hct 31.9 L (34.0-46.0) % MCV 113.0 H (80.0-100.0) fL MCH 37.6 H (25.0-35.0) pg Plt Count 122 L (150-450) k/uL Neutrophils # (1.3-7.7) k/uL Lymphocytes # (1.0-4.8) k/uL Macrocytosis Marked A APTT (22.0-30.0) sec Potassium (3.5-5.1) mmol/L Carbon Dioxide (22-30) mmol/L BUN (7-17) mg/dL Creatinine (0.52-1.04) mg/dL Glucose (74-99) mg/dL Calcium (8.4-10.2) mg/dL Total Bilirubin (0.2-1.3) mg/dL AST (14-36) U/L Creatine Kinase (30-135) U/L Total Protein (6.3-8.2) g/dL Albumin (3.5-5.0) g/dL Urine Protein 1+ H (Negative) Urine Ketones 3+ H (Negative) Urine Blood Trace H (Negative) Urine Bilirubin 1+ H (Negative) Ur Leukocyte Esterase Large H (Negative) Urine WBC 79 H (0-5) /hpf Urine Mucus Rare H (None) /hpf U Benzodiazepines Scrn Detected H (NotDetected) 09/18/22 Range/Units 04:49 WBC (3.8-10.6) k/uL RBC (3.80-5.40) m/uL Hgb (11.4-16.0) gm/dL Hct (34.0-46.0) % MCV (80.0-100.0) fL MCH (25.0-35.0) pg Plt Count (150-450) k/uL Neutrophils # (1.3-7.7) k/uL Lymphocytes # (1.0-4.8) k/uL Macrocytosis APTT (22.0-30.0) sec Potassium 3.2 L (3.5-5.1) mmol/L Carbon Dioxide (22-30) mmol/L BUN 18 H (7-17) mg/dL Creatinine 0.35 L (0.52-1.04) mg/dL Glucose (74-99) mg/dL Calcium (8.4-10.2) mg/dL Total Bilirubin (0.2-1.3) mg/dL AST (14-36) U/L Creatine Kinase (30-135) U/L Total Protein (6.3-8.2) g/dL Albumin (3.5-5.0) g/dL Urine Protein (Negative) Urine Ketones (Negative) Urine Blood (Negative) Urine Bilirubin (Negative) Ur Leukocyte Esterase (Negative) Urine WBC (0-5) /hpf Urine Mucus (None) /hpf U Benzodiazepines Scrn (NotDetected) H & H 09/17/22 09/18/22 Range/Units 13:48 04:49 Hgb 13.5 10.6 L (11.4-16.0) gm/dL Hct 40.6 31.9 L (34.0-46.0) % Coagulation 09/17/22 Range/Units 13:48 INR 0.9 (<1.2) Result Diagrams: 09/18/22 04:49 09/18/22 04:49 - Diagnostic results Shoulder x-ray: report reviewed, image reviewed (Images of the left shoulder demonstrate a transverse fracture of the left distal clavicle, there is some callus formation. Displaced and comminuted proximal left humerus fracture involving the surgical neck is noted ) Assessment and Plan Assessment: Displaced and comminuted left proximal humerus fracture Left distal clavicle fracture Status post recent falls Other medical comorbidities Plan: I was able to discuss the case, this including but physical exam findings and imaging studies my attending Dr. Skelton. No emergent orthopedic surgical intervention is recommended at this time Recommended follow-[facility] our [facility], this including surgical options Recommending use of arm sling at this time when up and about. Nonweightbearing to the left upper extremity. Basic range of motion exercises of the elbow, hand, wrist are okay to help prevent stiffness. Ice the shoulder often to help with ecchymosis and swelling Pain control, recommended use of Tylenol or NSAIDs, avoid narcotics if possible DVT prophylaxis per primary medical service Follow-up information will be placed in chart, please contact our service there are any further questions Time with Patient: Less than 30
[2022-09-18] MEDS: THIAMINE 100 MG TAB PO SCH (09:58)
[2022-09-18] MEDS: MAGNESIUM SULFATE-D5W PMX 1 GM in DEXTROSE/WATER 1 100ML.BAG IVPB SCH ×2 (09:58→12:40)
[2022-09-18] MEDS: HEPARIN SODIUM,PORCINE/PF 5,000 UNIT/0.5 ML SYRINGE SQ SCH ×2 (09:58→20:06)
[2022-09-18] MEDS: PANTOPRAZOLE 40 MG/10 ML VIAL IV SCH (09:59)
[2022-09-18 10:38] LABS: Eosinophils # (M) 0.24 k/uL (0-0.7); Metamyelocytes # (M) 0.12 k/uL (0); Metamyelocytes % 1 %; Neutrophils % (M) 78 %; Nucleated Red Blood Cells 1 /100 WBC (0-0); Total Cells Counted 200
[2022-09-18 10:39] LABS: Lymphocytes # (M) 1.42 k/uL (1.0-4.8); Monocytes # (M) 1.06 k/uL (0-1.0); WBC 11.8 k/uL (3.8-10.6)
[2022-09-18] MEDS: TOBRAMYCIN 0.3% OPHTH DROPS 5 ML BTL BOTH EYES SCH ×2 (15:35→19:24)
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
--- NOTE | 2022-09-18 17:17 | P.PN ---
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, alcoholic fatty liver disease, patient presented to the emergency department at [facility] after her neighbors called paramedics due to the patient frequent falling and not able to walk due to weakness in both lower extremities, patient apparently was seen in the emergency department about a month ago with a broken left clavicle, at this time the patient was with significant bruising in the left henry ulder left elbow left buttock area, and she had a computed tomography scan of the brain and cervical spine did not show evidence of acute of normalities, had a x-rays of the left shoulder showed left humeral neck fracture with 2 cm displacement, she was placed in a sling and she was admitted to the hospital because of fear of delirium tremens She was admitted to the intensive care unit for evaluation and treatment, and she was seen in consultation by orthopedic surgery. 09/18: Patient is sitting up in chair appears to be more awake and more alert today, she denies any chest pain, she continues to have significant pain in the left shoulder left arm, she is currently in a sling, she was seen in consultation by orthopedic surgery and the plan is to continue current management as she may require surgical intervention down the line as an outpatient. Continue physical therapy evaluation continue to monitor the patient the next right patient is getting magnesium sulfate replacement, and po tassium replacement, her anion gap acidosis has resolved. REVIEW OF SYSTEMS: Constitutional: No documented fever, no chills, no night sweats. No weight change. positive for weakness, fatigue or lethargy. No daytime sleepiness. HEENT: No headache. No blurred vision or double vision, no loss of vision. No loss of Hearing, no ringing in the ears, no dizziness. No nasal drainage or congestion. No epistaxis. No sore throat. Lungs: No shortness of breath, no cough, no sputum production. No wheezing. Reports dyspnea with activity. Cardiovascular: No chest pain, no lower extremity edema. No palpitations. No paroxysmal nocturnal dyspnea. No orthopnea. No lightheadedness or dizziness. No syncopal episodes. Abdominal: Reports abdominal pain. mild nausea nausea,no vomiting. No diarr hea. No constipation. No bloody or tarry stools reports loss of appetite. Genitourinary: No dysuria, increased frequency, urgency. No urinary retention. Musculoskeletal: No myalgias. positive muscle weakness, positive for gait dysfunction, positive for frequent falls. positive for back pain. positive for neck pain. Integumentary: No wounds, no lesions. No rash or pruritus. No unusual bruis ing. No change in hair or nails. Neurologic: No aphasia. No facial droop. No change in mentation. No head injury. No headache. No paralysis. No paresthesia. Psychiatric: No depression. No anxiety. No mood swings. Endocrine: No abnormal blood sugars. No weight change. PHYSICAL EXAMINATION: General: 77-year-old female laying down in bed appears to be a bit confused. HEENT: Head is atraumatic, normocephalic, pupils were equal round reactive to light and recommendation, extraocular muscle movement were intact, sclera nonicteric, conjunctivae were pale, mucous membranes of the mouth are somewhat dry. Neck: Supple, no JVP, normal carotid upstroke bilaterally, no lymphadenopathy. Chest: Decreased breath sounds at the bases, few rhonchi, no expiratory wheezes, no chest wall tenderness, no intercostal retractions. Heart: First heart sound is normal, second heart sounds normal there is systolic ejection murmur 2/6 located in the left sternal border. Abdomen: Soft, nontender, nondistended, positive bowel sounds. Extremities: There is no edema no calf tenderness DP +2 bilaterally. Neurologic examination: Patient is awake alert and oriented X 3 , cranial nerves II-12 appear grossly intact, muscle power was 3 out of 5 in bilateral lower extremities ASSESSMENT AND PLAN: 1. Metabolic encephalopathy due to alcohol withdrawal/possible delirium tremens. Continue IV fluid resuscitation the form of normocytic, continue thiamine, continue multivitamin, continue folic acid, continue CIWA protocol, monitor the patient in intensive care unit, patient was seen in consultation by Dr. Anand we'll continue to monitor very closely. Monitor electrolytes including magnesium as well as potassium. Seizure precautions . 2. Left humerus fracture. Consult orthopedic surgery for possible surgical intervention down the line, continue with sling, continue pain management. 3. Chronic alcohol use and dependence. Patient counseled about abstinence from alcohol, patient will need to be seen in consultation by physical therapy as well as physical therapy as the patient does complain of severe weakness in both lower leg showing is due to alcoholic polyneuropathy and she will require subacute rehab. 4. Moderate persistent asthma. Continue neb last treatment, continue oxygen as needed, restart the patient on Symbicort 160/4.5 g 2 puffs inhalation twice every day. 5. Mixed hyperlipidemia. Patient is not taking a statin at this point in time. 6. Hypertension and hypertensive cardiovascular disease. Patient is currently not on any medication monitor her blood pressure very closely. 7. Spondylosis of the cervical spine without myelopathy. Computed tomography scan of the brain and the cervical spine was reviewed. 8. Alcoholic fatty liver disease. Abstinence from alcohol monitor the patient CMP. 9. Mild elevation in CPK due to Mild rhabdomyolysis due to recurrent falls continue IV fluid repeat CPK tomorrow morning. 10. Anion gap embolic acidosis due to lactic acidosis. Resolved. 11. DVT prophylaxis. Continue patient on heparin 5000 units subcutaneously every 12 hours. 12. GI prophylaxis. Continue Protonix 40 mg orally once every day. 13. Hypokalemia. Status post placement 14. Hypomagnesemia. Status post placement. 15. Physical therapy evaluation for possible subacute rehabilitation. 16. Pancytopenia due to chronic alcohol use and bone marrow suppression. Continue folic acid, multivitamin and thiamine . 17. Full code. Objective - Vital Signs Vital signs: Vital Signs Temp 98.3 F 09/18/22 16:05 Pulse 99 09/18/22 16:05 Resp 16 09/18/22 16:05 BP 150/82 09/18/22 16:05 Pulse Ox 100 09/18/22 16:05 FiO2 Intake & Output 09/17/22 09/18/22 09/18/22 18:59 06:59 18:59 Intake Total 175 1200 550 Output Total 130 150 Balance 175 1070 400 Weight 56.699 kg 56.4 kg 56.4 kg Intake: IV 175 1200 300 Sodium Chloride 0.9% 1, 175 1200 300 000 ml @ 40 mls/hr IV . Q24H [facility] Rx#:[id number] Oral 250 Output: Urine 130 150 Other: Voiding Method External Catheter External Catheter External Catheter # Voids 1 1 - Labs CBC & Chem 7: 09/18/22 04:49 09/18/22 04:49 Labs: Abnormal Lab Results - Last 24 Hours (Table) 09/17/22 09/17/22 09/18/22 Range/Units 18:26 19:35 04:49 WBC 11.8 H (3.8-10.6) k/uL RBC 2.83 L (3.80-5.40) m/uL Hgb 10.6 L (11.4-16.0) gm/dL Hct 31.9 L (34.0-46.0) % MCV 113.0 H (80.0-100.0) fL MCH 37.6 H (25.0-35.0) pg Plt Count 122 L (150-450) k/uL Neutrophils # (Manual) 9.20 H (1.3-7.7) k/uL Monocytes # (Manual) 1.06 H (0-1.0) k/uL Metamyelocytes # (Man) 0.12 H (0) k/uL Nucleated RBCs 1 H (0-0) /100 WBC Macrocytosis Marked A Potassium (3.5-5.1) mmol/L BUN (7-17) mg/dL Creatinine (0.52-1.04) mg/dL Urine Protein 1+ H (Negative) Urine Ketones 3+ H (Negative) Urine Blood Trace H (Negative) Urine Bilirubin 1+ H (Negative) Ur Leukocyte Esterase Large H (Negative) Urine WBC 79 H (0-5) /hpf Urine Mucus Rare H (None) /hpf U Benzodiazepines Scrn Detected H (NotDetected) 09/18/22 Range/Units 04:49 WBC (3.8-10.6) k/uL RBC (3.80-5.40) m/uL Hgb (11.4-16.0) gm/dL Hct (34.0-46.0) % MCV (80.0-100.0) fL MCH (25.0-35.0) pg Plt Count (150-450) k/uL Neutrophils # (Manual) (1.3-7.7) k/uL Monocytes # (Manual) (0-1.0) k/uL Metamyelocytes # (Man) (0) k/uL Nucleated RBCs (0-0) /100 WBC Macrocytosis Potassium 3.2 L (3.5-5.1) mmol/L BUN 18 H (7-17) mg/dL Creatinine 0.35 L (0.52-1.04) mg/dL Urine Protein (Negative) Urine Ketones (Negative) Urine Blood (Negative) Urine Bilirubin (Negative) Ur Leukocyte Esterase (Negative) Urine WBC (0-5) /hpf Urine Mucus (None) /hpf U Benzodiazepines Scrn (NotDetected)
[2022-09-18 18:30] LABS: Reticulocyte % 3.6 % (0.5-2.0)
[2022-09-19] MEDS: TOBRAMYCIN 0.3% OPHTH DROPS 5 ML BTL BOTH EYES SCH ×7 (00:25→23:41)
[2022-09-19 03:53] LABS: % Iron Saturation 20.07 (12.00-45.00)
[2022-09-19 07:26] LABS: Glucose,Whole Blood 146 mg/dL (70-110)
[2022-09-19] MEDS: SYMBICORT 160-4.5 MCG INHALER INHALATION SCH ×2 (09:24→20:16)
[2022-09-19] MEDS: MULTIVITAMINS, THERA 1 EACH TAB PO SCH (09:58)
[2022-09-19] MEDS: THIAMINE 100 MG TAB PO SCH (09:58)
[2022-09-19] MEDS: CYANOCOBALAMIN 500 MCG TAB PO SCH (09:58)
[2022-09-19] MEDS: PANTOPRAZOLE 40 MG/10 ML VIAL IV SCH (09:58)
[2022-09-19] MEDS: HEPARIN SODIUM,PORCINE/PF 5,000 UNIT/0.5 ML SYRINGE SQ SCH ×2 (09:58→20:53)
[2022-09-19] MEDS: FOLIC ACID 1 MG TAB PO SCH (09:58)
[2022-09-19 11:18] LABS: Blood Urea Nitrogen 5.6 mg/dL (9.0-27.0); Chloride 106 mmol/L (96-109); Glucose 120 mg/dL (70-110); Magnesium 1.5 mg/dL (1.5-2.4); Potassium 3.1 mmol/L (3.5-5.5); Sodium 140 mmol/L (135-145)
[2022-09-19 11:19] LABS: ALT 13 U/L (8-44); AST 28 U/L (13-35); Albumin 3.5 d/dL (3.8-4.9); Albumin/Globulin Ratio 1.67 Ratio (1.60-3.17); Alkaline Phosphatase 49 U/L (41-126); Calcium 8.9 mg/dL (8.7-10.3); Carbon Dioxide 22.4 mmol/L (21.6-31.8); Globulin 2.1 d/dL (1.6-3.3); Total Bilirubin 0.7 mg/dL (0.3-1.2); Total Protein 5.6 d/dL (6.2-8.2)
[2022-09-19 11:55] LABS: Basophils # (A) 0.09 X 10*3/uL (0.00-0.10); Basophils % (A) 0.9 %; Eosinophils # (A) 0.37 X 10*3/uL (0.04-0.35); Eosinophils % (A) 3.8 %; HCT 30.5 % (37.2-46.3); HGB 10.5 d/dL (12.0-15.0); Lymphocytes # (A) 1.52 X 10*3/uL (0.90-5.00); Lymphocytes % (A) 15.6 %; MCH 37.4 pg (27.0-32.0); MCHC 34.4 d/dL (32.0-37.0); MCV 108.5 FL (80.0-97.0); Macrocytosis (M) 2+; Mean Platelet Volume 13.4 FL (9.5-12.2); Monocytes # (A) 1.45 X 10*3/uL (0.20-1.00); Monocytes % (A) 14.9 %; NRBC Per 100 WBC 0.05 X 10*3/uL (0.00-0.01); Neutrophils # (A) 6.24 X 10*3/uL (1.80-7.70); Neutrophils % (A) 63.9 %; Platelet Count 152 X 10*3/uL (140-440); RBC 2.81 X 10*6/uL (4.10-5.20); WBC 9.76 X 10*3/uL (4.50-10.00)
[2022-09-19] MEDS ORDERED: Potassium Replacement Protocol 1 EACH MISC MISCELLANE PRN (12:02)
[2022-09-19] MEDS: POTASSIUM CHLORIDE ER 20 MEQ TAB.ER PO SCH ×2 (12:29→15:17)
--- NOTE | 2022-09-19 13:25 | P.PN ---
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, alcoholic fatty liver disease, patient presented to the emergency department at [facility] after her neighbors called paramedics due to the patient frequent falling and not able to walk due to weakness in both lower extremities, patient apparently was seen in the emergency department about a month ago with a broken left clavicle, at this time the patient was with significant bruising in the left henry ulder left elbow left buttock area, and she had a computed tomography scan of the brain and cervical spine did not show evidence of acute of normalities, had a x-rays of the left shoulder showed left humeral neck fracture with 2 cm displacement, she was placed in a sling and she was admitted to the hospital because of fear of delirium tremens She was admitted to the intensive care unit for evaluation and treatment, and she was seen in consultation by orthopedic surgery. 09/18: Patient is sitting up in chair appears to be more awake and more alert today, she denies any chest pain, she continues to have significant pain in the left shoulder left arm, she is currently in a sling, she was seen in consultation by orthopedic surgery and the plan is to continue current management as she may require surgical intervention down the line as an outpatient. Continue physical therapy evaluation continue to monitor the patient the next right patient is getting magnesium sulfate replacement, and po tassium replacement, her anion gap acidosis has resolved. 09/19: Patient has been transferred to [facility] floor. She denies having any chest pain. She continues to have left shoulder pain. She states she is ambulating with a cane with physical therapy. Physical therapy has recommended either home with supervision or subacute rehab which she is not interested in either one. She thinks she can manage at home and wants to get home and she has animals to take care of. Heart rate is in the 70s and 80s, blood pressure 109/61, pulse ox 100% on room air. Repeat blood work reveals WBC 9.7, hemogl obin 10.5, platelet count 152. Sodium 140, potassium 3.1, chloride 106, CO2 22, BUN 5 and creatinine 0.4. Plan is to continue current management and monitor overnight, discharge home tomorrow. REVIEW OF SYSTEMS: Constitutional: No documented fever, no chills, no night sweats. No weight change. positive for weakness, fatigue or lethargy. No daytime sleepiness. HEENT: No headache. No blurred vision or double vision, no loss of vision. No loss of Hearing, no ringing in the ears, no dizziness. No nasal drainage or congestion. No epistaxis. No sore throat. Lungs: No shortness of breath, no cough, no sputum production. No wheezing. Reports dyspnea with activity. Cardiovascular: No chest pain, no lower extremity edema. No palpitations. No paroxysmal nocturnal dyspnea. No orthopnea. No lightheadedness or dizziness. No syncopal episodes. Abdominal: Reports abdominal pain. mild nausea nausea,no vomiting. No diarrhea. No constipation. No bloody or tarry stools reports loss of appetite. Genitourinary: No dysuria, increased frequency, urgency. No urinary retention. Musculoskeletal: No myalgias. positive muscle weakness, positive for gait dysfunction, positive for frequent falls. positive for back pain. positive for neck pain. Integumentary: No wounds, no lesions. No rash or pruritus. No unusual bruising. No change in hair or nails. Neurologic: No aphasia. No facial droop. No change in mentation. No head injury. No headache. No paralysis. No paresthesia. Psychiatric: No depression. No anxiety. No mood swings. Endocrine: No abnormal blood sugars. No weight change. PHYSICAL EXAMINATION: General: 77-year-old female laying down in bed appears to be a bit confused. HEENT: Head is atraumatic, normocephalic, pupils were equal round reactive to light and recommendation, extraocular muscle movement were intact, sclera nonicteric, conjunctivae were pale, mucous membranes of the mouth are somewhat dry. Neck: Supple, no JVP, normal carotid upstroke bilaterally, no lymphadenopathy. Chest: Decreased breath sounds at the bases, few rhonchi, no expiratory wheezes, no chest wall tenderness, no intercostal retractions. Heart: First heart sound is normal, second heart sounds normal there is systolic ejection murmur 2/6 located in the left sternal border. Abdomen: Soft, nontender, nondistended, positive bowel sounds. Extremities: There is no edema no calf tenderness DP +2 bilaterally. Ecchymosis to the left shoulder, left arm sling in place. Neurologic examination: Patient is awake alert and oriented X 3 , cranial nerves II-12 appear grossly intact, muscle power was 3 out of 5 in bilateral lower extremities ASSESSMENT AND PLAN: 1. Metabolic encephalopathy due to alcohol withdrawal/possible delirium tremens. Continue thiamine, continue multivitamin, continue folic acid, continue CIWA protocol, patient was seen in consultation by Dr. Anand we'll continue to monitor very closely. Monitor electrolytes including magnesium as well as potassium. 2. Left humerus fracture. Consult orthopedic surgery for possible surgical intervention down the line, continue with sling, continue pain management. 3. Chronic alcohol use and dependence. Patient counseled about abstinence from alcohol, patient will need to be seen in consultation by physical therapy as well as physical therapy as the patient does complain of severe weakness in both lower leg showing is due to alcoholic polyneuropathy and she is refusing subacute rehab. 4. Moderate persistent asthma. Continue neb last treatment, continue oxygen as needed, restart the patient on Symbicort 160/4.5 g 2 puffs inhalation twice every day. 5. Mixed hyperlipidemia. Patient is not taking a statin at this point in time. 6. Hypertension and hypertensive cardiovascular disease. Patient is currently not on any medication monitor her blood pressure very closely. 7. Spondylosis of the cervical spine without myelopathy. Computed tomography scan of the brain and the cervical spine was reviewed. 8. Alcoholic fatty liver disease. Abstinence from alcohol monitor the patient CMP. 9. Mild elevation in CPK due to Mild rhabdomyolysis due to recurrent falls continue IV fluid repeat CPK tomorrow morning. 10. Anion gap embolic acidosis due to lactic acidosis. Resolved. 11. DVT prophylaxis. Continue patient on heparin 5000 units subcutaneously every 12 hours. 12. GI prophylaxis. Continue Protonix 40 mg orally once every day. 13. Hypokalemia. Status post placement 14. Hypomagnesemia. Status post placement. 15. Physical therapy evaluation for possible subacute rehabilitation. 16. Pancytopenia due to chronic alcohol use and bone marrow suppression. Continue folic acid, multivitamin and thiamine . 17. Full code. Impression and plan of care have been directed as dictated by the signing physician. Kelsey Mckeon nurse practitioner acting as scribe for signing physician. Objective - Vital Signs Vital signs: Vital Signs Temp 98.4 F 09/19/22 12:15 Pulse 74 09/19/22 12:15 Resp 20 09/19/22 12:15 BP 109/61 09/19/22 12:15 Pulse Ox 100 09/19/22 12:15 FiO2 Intake & Output 09/18/22 09/19/22 09/19/22 18:59 06:59 18:59 Intake Total 550 420 Output Total 150 Balance 400 420 Weight 56.4 kg 57.5 kg Intake: IV 300 Sodium Chloride 0.9% 1, 300 000 ml @ 40 mls/hr IV . Q24H [facility] Rx#:[id number] Oral 250 420 Output: Urine 150 Other: Voiding Method External Catheter Diaper Diaper Incontinent Incontinent # Voids 1 3 - Labs CBC & Chem 7: 09/19/22 06:30 09/19/22 06:30 Labs: Abnormal Lab Results - Last 24 Hours (Table) 09/18/22 09/18/22 09/18/22 Range/Units 04:49 04:49 17:19 RBC (4.10-5.20) X 10*6/uL Hgb (12.0-15.0) d/dL Hct (37.2-46.3) % MCV (80.0-97.0) FL MCH (27.0-32.0) pg RDW (11.5-14.5) % MPV (9.5-12.2) FL Monocytes # (0.20-1.00) X 10*3/uL Eosinophils # (0.04-0.35) X 10*3/uL NRBC/100 WBC Diff (0.00-0.01) X 10*3/uL Macrocytosis (manual) Retic Count 3.6 H (0.5-2.0) % Potassium (3.5-5.5) mmol/L BUN (9.0-27.0) mg/dL Creatinine (0.6-1.5) mg/dL Glucose (70-110) mg/dL POC Glucose (mg/dL) (70-110) mg/dL Transferrin 196.0 L (204.0-354.0) mg/dL Ferritin 676.0 H (10.0-291.0) ng/mL Lactate Dehydrogenase 252 H (120-246) U/L Total Protein (6.2-8.2) d/dL Albumin (3.8-4.9) d/dL Vitamin B12 171.0 L (200.0-944.0) pg/mL Folate (4.40-31.00) ng/mL 09/18/22 09/19/22 09/19/22 Range/Units 17:19 06:30 06:30 RBC 2.81 L (4.10-5.20) X 10*6/uL Hgb 10.5 L (12.0-15.0) d/dL Hct 30.5 L (37.2-46.3) % MCV 108.5 H (80.0-97.0) FL MCH 37.4 H (27.0-32.0) pg RDW 15.0 H (11.5-14.5) % MPV 13.4 H (9.5-12.2) FL Monocytes # 1.45 H (0.20-1.00) X 10*3/uL Eosinophils # 0.37 H (0.04-0.35) X 10*3/uL NRBC/100 WBC Diff 0.05 H (0.00-0.01) X 10*3/uL Macrocytosis (manual) 2+ A Retic Count (0.5-2.0) % Potassium 3.1 L (3.5-5.5) mmol/L BUN 5.6 L (9.0-27.0) mg/dL Creatinine 0.4 L (0.6-1.5) mg/dL Glucose 120 H (70-110) mg/dL POC Glucose (mg/dL) (70-110) mg/dL Transferrin (204.0-354.0) mg/dL Ferritin (10.0-291.0) ng/mL Lactate Dehydrogenase (120-246) U/L Total Protein 5.6 L (6.2-8.2) d/dL Albumin 3.5 L (3.8-4.9) d/dL Vitamin B12 (200.0-944.0) pg/mL Folate 4.00 L (4.40-31.00) ng/mL 09/19/22 Range/Units 07:24 RBC (4.10-5.20) X 10*6/uL Hgb (12.0-15.0) d/dL Hct (37.2-46.3) % MCV (80.0-97.0) FL MCH (27.0-32.0) pg RDW (11.5-14.5) % MPV (9.5-12.2) FL Monocytes # (0.20-1.00) X 10*3/uL Eosinophils # (0.04-0.35) X 10*3/uL NRBC/100 WBC Diff (0.00-0.01) X 10*3/uL Macrocytosis (manual) Retic Count (0.5-2.0) % Potassium (3.5-5.5) mmol/L BUN (9.0-27.0) mg/dL Creatinine (0.6-1.5) mg/dL Glucose (70-110) mg/dL POC Glucose (mg/dL) 146 H (70-110) mg/dL Transferrin (204.0-354.0) mg/dL Ferritin (10.0-291.0) ng/mL Lactate Dehydrogenase (120-246) U/L Total Protein (6.2-8.2) d/dL Albumin (3.8-4.9) d/dL Vitamin B12 (200.0-944.0) pg/mL Folate (4.40-31.00) ng/mL
--- NOTE | 2022-09-19 16:21 | P.PN ---
Subjective Progress Note Date: 09/19/22 77-year-old female patient who came into numerous department with altered mentation, frequent falls and the humeral fracture. Apparently, the neighbors called the paramedics due to concerns of her having frequent falls. Apparently, this patient is an alcoholic and she drinks alcohol on a daily basis. She quit drinking approximately 2 weeks ago as she was preparing for the [facility] service. She was having frequent falls. She was altered. She came into the emergency and she had several bruises on her buttocks, left shoulder and elbows and knees. She was hemodynamically stable. She was altered and confused. No agitation. White cell count was 60 with a hemoglobin 15.5 and a platelet count of 147. BUN was 30 with a creatinine of 0.4. Sodium was at 141. LFTs were normal. The CPK was 327. Albumin was 5.3 with a total protein of 9.0. Magnesium level was 1.9. Lactic acid level was at 2.0. CAT scan of the brain and cervical spine showed no acute abnormalities. X-ray of the shoulder showed fracture of the proximal left humerus associated with some mild comminution and nearly 2 cm anterior displacement and prominent dilatation of the humeral head On today's evaluation of 09/18/2022, Shannon is wide awake and communicating and she is awake and alert and oriented 3. She states that she had limited or drinking. She was not drinking in excess. She had fallen and as a result she has also fractured her left humerus. Also evaluated the patient and the patient currently is wearing his sling and she was ultimately need an ORIF. Meanwhile, she is hemodynamically stable. No agitation. No seizure activity. She is not requiring any sedative medications. She is hemodynamically stable and a normal sinus rhythm. The WBC count is at 11.9 with a hemoglobin of 10.6 and a platelet count of 122. BUN is at 18 with a creatinine of 0.35 and a sodium level is at 138. Potassium levels at 3.2 that needs to be replaced. UA showed 79 WBCs and urine cultures are pending. Urine drug screen is positive for benzodiazepines. Alcohol level is negative. Meanwhile, no other significant events. This morning she is sitting up on a chair and she is having her excess. She is on normal saline at the rate of 100 mL an hour. She is also on thiamine. We suspected a conjunctivitis and we offered her TobraDex eyedrops to left eye. She has not required any Ativan. She is taking Symbicort regarding her asthma and this was resumed. She is on heparin subcu for DVT prophylaxis. On 09/19/2022, no signs of delirium tremens and the patient is awake and alert and oriented. She has no specific complaints for now. No cough or sputum production. No chest tightness or wheezing. No issues with pain and the patient is under adequate control for now. No altered mentation. No agitation. The labs are essentially stable with a hemoglobin of 10.5, sodium of 140, BUN is at 5 with a creatinine of 0.4. Objective - Vital Signs Vital signs: Vital Signs Temp 97.7 F 09/19/22 07:40 Pulse 88 09/19/22 09:00 Resp 20 09/19/22 09:00 BP 115/65 09/19/22 07:40 Pulse Ox 98 09/19/22 07:40 FiO2 Intake & Output 09/18/22 09/19/22 09/19/22 18:59 06:59 18:59 Intake Total 550 420 Output Total 150 Balance 400 420 Weight 56.4 kg 57.5 kg Intake: IV 300 Sodium Chloride 0.9% 1, 300 000 ml @ 40 mls/hr IV . Q[facility]H [facility] Rx#:[id number] Oral 250 420 Output: Urine 150 Other: Voiding Method External Catheter Diaper Diaper Incontinent Incontinent # Voids 1 3 - Exam Calm and comfortable with a body mass in the 20.8. OA x3 Head exam was generally normal. There was no scleral icterus or corneal arcus. Mucous membranes were moist. Neck was supple and without jugular venous distension, thyromegaly, or carotid bruits. Carotids were easily palpable bilaterally. There was no adenopathy. Lungs were clear to auscultation and percussion, and with normal diaphragmatic excursion. No wheezes or rales were noted. Cardiac exam revealed the PMI to be normally situated and sized. The rhythm was regular and no extrasystoles were noted during several minutes of auscultation. The first and second heart sounds were normal and physiologic splitting of the second heart sound was noted. There were no murmurs, rubs, clicks, or gallops. Abdominal exam revealed normal bowel sounds. The abdomen was soft, non-tender, and without masses, organomegaly, or appreciable enlargement of the abdominal aorta. Extremities reveals some bruising and swelling at the level of the left shoulder. Pulses are equal and symmetrical in all 4 extremities. Bruises over the elbows and the knees bilaterally. Skin various areas of bruising are seen. No open wounds. There is also bruising in the buttocks Neurologically, she is moving all 4 extremities. Pupils are equal reactive to light. No facial asymmetry. No Babinski. No clonus. She is encephalopathic. She has some tremors. No seizure activity has been witnessed. No agitation. She is OA x3 - Labs CBC & Chem 7: 09/19/22 06:30 09/19/22 06:30 Labs: Abnormal Lab Results - Last 24 Hours (Table) 09/18/22 09/18/22 09/18/22 Range/Units 04:49 04:49 17:19 RBC (4.10-5.20) X 10*6/uL Hgb (12.0-15.0) d/dL Hct (37.2-46.3) % MCV (80.0-97.0) FL MCH (27.0-32.0) pg RDW (11.5-14.5) % MPV (9.5-12.2) FL Monocytes # (0.20-1.00) X 10*3/uL Eosinophils # (0.04-0.35) X 10*3/uL NRBC/100 WBC Diff (0.00-0.01) X 10*3/uL Macrocytosis (manual) Retic Count 3.6 H (0.5-2.0) % Potassium (3.5-5.5) mmol/L BUN (9.0-27.0) mg/dL Creatinine (0.6-1.5) mg/dL Glucose (70-110) mg/dL POC Glucose (mg/dL) (70-110) mg/dL Transferrin 196.0 L (204.0-354.0) mg/dL Ferritin 676.0 H (10.0-291.0) ng/mL Lactate Dehydrogenase 252 H (120-246) U/L Total Protein (6.2-8.2) d/dL Albumin (3.8-4.9) d/dL Vitamin B12 171.0 L (200.0-944.0) pg/mL Folate (4.40-31.00) ng/mL 09/18/22 09/19/22 09/19/22 Range/Units 17:19 06:30 06:30 RBC 2.81 L (4.10-5.20) X 10*6/uL Hgb 10.5 L (12.0-15.0) d/dL Hct 30.5 L (37.2-46.3) % MCV 108.5 H (80.0-97.0) FL MCH 37.4 H (27.0-32.0) pg RDW 15.0 H (11.5-14.5) % MPV 13.4 H (9.5-12.2) FL Monocytes # 1.45 H (0.20-1.00) X 10*3/uL Eosinophils # 0.37 H (0.04-0.35) X 10*3/uL NRBC/100 WBC Diff 0.05 H (0.00-0.01) X 10*3/uL Macrocytosis (manual) 2+ A Retic Count (0.5-2.0) % Potassium 3.1 L (3.5-5.5) mmol/L BUN 5.6 L (9.0-27.0) mg/dL Creatinine 0.4 L (0.6-1.5) mg/dL Glucose 120 H (70-110) mg/dL POC Glucose (mg/dL) (70-110) mg/dL Transferrin (204.0-354.0) mg/dL Ferritin (10.0-291.0) ng/mL Lactate Dehydrogenase (120-246) U/L Total Protein 5.6 L (6.2-8.2) d/dL Albumin 3.5 L (3.8-4.9) d/dL Vitamin B12 (200.0-944.0) pg/mL Folate 4.00 L (4.40-31.00) ng/mL 09/19/22 Range/Units 07:24 RBC (4.10-5.20) X 10*6/uL Hgb (12.0-15.0) d/dL Hct (37.2-46.3) % MCV (80.0-97.0) FL MCH (27.0-32.0) pg RDW (11.5-14.5) % MPV (9.5-12.2) FL Monocytes # (0.20-1.00) X 10*3/uL Eosinophils # (0.04-0.35) X 10*3/uL NRBC/100 WBC Diff (0.00-0.01) X 10*3/uL Macrocytosis (manual) Retic Count (0.5-2.0) % Potassium (3.5-5.5) mmol/L BUN (9.0-27.0) mg/dL Creatinine (0.6-1.5) mg/dL Glucose (70-110) mg/dL POC Glucose (mg/dL) 146 H (70-110) mg/dL Transferrin (204.0-354.0) mg/dL Ferritin (10.0-291.0) ng/mL Lactate Dehydrogenase (120-246) U/L Total Protein (6.2-8.2) d/dL Albumin (3.8-4.9) d/dL Vitamin B12 (200.0-944.0) pg/mL Folate (4.40-31.00) ng/mL Assessment and Plan Plan: Altered mental status, alcohol withdrawal encephalopathy/delirium tremens. No significant agitation. Mental status is back to normal and the patient is communicating and she is alert and oriented 3 Left humeral fracture, secondary to fall. The patient has extensive soft tissue swelling and orthopedic surgery evaluated the patient and we are looking into surgical correction/ORIF at the later stage probably on outpatient basis. Meanwhile pain is under adequate control and the patient is wearing his sling. Frequent falls secondary to above Alcoholism Chronic bronchial asthma maternal Symbicort on outpatient basis Mild elevation of the CPK secondary to falls Anion gap metabolic acidosis with mild lactic acid level elevation. Alcohol level is negative. Plan The insurance has recovered Orthopedic consultation regarding the humeral fracture, as mentioned surgical intervention at the later stage/ORIF for a humeral fracture Continue thiamine Continue IV fluids to KVO Ativan for any agitation or withdrawal symptoms, no signs of any acute delirium tremens for now We'll sign off the case and leave the rest of the medicine and orthopedic surgery. Condition is stable for now.
[2022-09-20] MEDS: TOBRAMYCIN 0.3% OPHTH DROPS 5 ML BTL BOTH EYES SCH ×5 (04:09→21:00)
[2022-09-20] MEDS: CYANOCOBALAMIN 500 MCG TAB PO SCH (08:47)
[2022-09-20] MEDS: HEPARIN SODIUM,PORCINE/PF 5,000 UNIT/0.5 ML SYRINGE SQ SCH ×2 (08:48→21:31)
[2022-09-20] MEDS: MULTIVITAMINS, THERA 1 EACH TAB PO SCH (08:48)
[2022-09-20] MEDS: PANTOPRAZOLE 40 MG/10 ML VIAL IV SCH (08:48)
[2022-09-20] MEDS: FOLIC ACID 1 MG TAB PO SCH (08:48)
[2022-09-20] MEDS: THIAMINE 100 MG TAB PO SCH (08:48)
[2022-09-20] MEDS: SYMBICORT 160-4.5 MCG INHALER INHALATION SCH ×2 (09:24→20:05)
[2022-09-20 09:31] LABS: HCT 30.6 % (37.2-46.3); HGB 10.3 d/dL (12.0-15.0); MCH 36.1 pg (27.0-32.0); MCHC 33.7 d/dL (32.0-37.0); MCV 107.4 FL (80.0-97.0); Mean Platelet Volume 13.5 FL (9.5-12.2); NRBC Per 100 WBC 0.04 X 10*3/uL (0.00-0.01); Platelet Count 171 X 10*3/uL (140-440); RBC 2.85 X 10*6/uL (4.10-5.20); RDW 14.9 % (11.5-14.5); WBC 9.42 X 10*3/uL (4.50-10.00)
[2022-09-20 09:37] LABS: ALT 13 U/L (8-44); AST 26 U/L (13-35); Albumin 3.5 d/dL (3.8-4.9); Albumin/Globulin Ratio 1.59 Ratio (1.60-3.17); Alkaline Phosphatase 48 U/L (41-126); BUN/Creat Ratio 19.25 Ratio (12.00-20.00); Blood Urea Nitrogen 7.7 mg/dL (9.0-27.0); Calcium 9.4 mg/dL (8.7-10.3); Carbon Dioxide 22.4 mmol/L (21.6-31.8); Chloride 103 mmol/L (96-109); Globulin 2.2 d/dL (1.6-3.3); Glucose 130 mg/dL (70-110); Potassium 3.4 mmol/L (3.5-5.5); Sodium 138 mmol/L (135-145); Total Bilirubin 0.4 mg/dL (0.3-1.2); Total Protein 5.7 d/dL (6.2-8.2)
[2022-09-20 10:37] VITALS: BMI 19.8
[2022-09-20] MEDS ORDERED: Potassium Replacement Protocol 1 EACH MISC MISCELLANE PRN (10:49)
[2022-09-20] MEDS: POTASSIUM CHLORIDE ER 20 MEQ TAB.ER PO SCH ×2 (12:12→13:40)
--- NOTE | 2022-09-20 13:05 | P.DS ---
Providers Date of admission: 09/17/22 14:52 Expected date of discharge: 09/20/22 Attending physician: Valentine Leroy Consults: 09/17/22 14:48 Consult Physician Routine Consulting Provider: Duane Skelton Consult Reason/Comments: Humerus fracture Do you want consulting provider notified?: Yes 09/17/22 14:50 Consult Physician Routine Consulting Provider: Risa Anand Consult Reason/Comments: Pending DTs Do you want consulting provider notified?: Already Contacted Primary care physician: Valentine Leroy [facility] Course: HISTORY OF PRESENT ILLNESS: This is a 77-year-old female with a previous medical history significant for hypertension and hypertensive cardio vascular disease, hyperlipidemia, 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, moderate persistent asthma, recurrent pancreatitis due to alcohol use and dependence, 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, alcoholic fatty liver disease, patient presented to the emergency department at [facility] after her neighbors called paramedics due to the patient frequent falling and not able to walk due to weakness in both lower extremities, patient apparently was seen in the emergency department about a month ago with a broken left clavicle, at this time the patient was with significant bruising in the left shoulder left elbow left buttock area, and she had a computed tomography scan of the brain and cervical spine did not show evidence of acute of normalities, had a x-rays of the left shoulder showed left humeral neck fracture with 2 cm displacement, she was placed in a sling and she was admitted to the hospital because of fear of delirium tremens She was admitted to the intensive care unit for evaluation and treatment, and she was seen in consultation by orthopedic surgery. 09/18: Patient is sitting up in chair appears to be more awake and more alert today, she denies any chest pain, she continues to have significant pain in the left shoulder left arm, she is currently in a sling, she was seen in consultation by orthopedic surgery and the plan is to continue current management as she may require surgical intervention down the line as an o utpatient. Continue physical therapy evaluation continue to monitor the patient the next right patient is getting magnesium sulfate replacement, and potassium replacement, her anion gap acidosis has resolved. 09/19: Patient has been transferred to [facility]. She denies having any chest pain. She continues to have left shoulder pain. She states she is ambulating with a cane with physical therapy. Physical therapy has recommended either home with supervision or subacute rehab which she is not interested in either one. She thinks she can manage at home and wants to get home and she has animals to take care of. Heart rate is in the 70s and 80s, blood pressure 109/61, pulse ox 100% on room air. Repeat blood work reveals WBC 9.7, hemoglobin 10.5, platelet count 152. Sodium 140, potassium 3.1, chloride 106, CO2 22, BUN 5 and creatinine 0.4. Plan is to continue current management and monitor overnight, discharge home tomorrow. 09/20: Patient's vital signs have been stable with blood pressure 110/67, heart rate 80, pulse ox 100% on room air, afebrile. WBC 9.4, hemoglobin 10.3, platelet count 171. Sodium 138, potassium 3.4, BUN 7.7, creatinine 0.4. Patient has had no signs of DTs. Patient's discharge plan is unchanged. She does not want to go to rehab and is planning to go home with home care. verification manager will order a 4 prong walker for her. DISCHARGE DIAGNOSES: 1. Metabolic encephalopathy due to alcohol withdrawal andpossible delirium tremens. 2. Left humerus fracture. 3. Chronic alcohol use and dependence with alcoholic polyneuropathy. 4. Moderate persistent asthma. 5. Mixed hyperlipidemia. 6. Hypertension and hypertensive cardiovascular disease. 7. Spondylosis of the cervical spine without myelopathy. 8. Alcoholic fatty liver disease. 9. Mild elevation in CPK due to Mild rhabdomyolysis due to recurrent falls. 10. Anion gap metabolic acidosis due to lactic acidosis. 11. Hypokalemia. Status post placement 12. Hypomagnesemia. Status post placement. 13. Pancytopenia due to chronic alcohol use and bone marrow suppression. Discharge plan: home with [facility] care Greater than 35 minutes was utilized and coordinating patient's discharge. Impression and plan of care have been directed as dictated by the signing physician. Kelsey Mckeon nurse practitioner acting as scribe for signing physician. Patient Condition at Discharge: Good Plan - Discharge Summary Discharge Rx Participant: Yes New Discharge Prescriptions: New Folic Acid 1 mg PO DAILY #30 tab Thiamine [Vitamin B-1] 100 mg PO DAILY #30 tab Multivitamins, Thera [Multivitamin (formulary)] 1 each PO DAILY #30 tab Tobramycin 0.3% Ophth Soln [Tobrex 0.3% Ophth Soln] 1 drops BOTH EYES Q4HR #5 ml Cyanocobalamin [Vitamin B-12] 1,000 mcg PO DAILY #30 tab Continue Acetaminophen-Codeine 300-30mg [Tylenol w/codeine #3] 1 tab PO Q6H PRN #12 tablet PRN Reason: pain Budesonide/Formoterol Fumarate [Symbicort 160-4.5 Mcg Inhaler] 2 puff INHALATION RT-BID Discharge Medication List Acetaminophen-Codeine 300-30mg [Tylenol w/codeine #3] 1 tab PO Q6H PRN #12 tablet 07/27/22 [Rx] Budesonide/Formoterol Fumarate [Symbicort 160-4.5 Mcg Inhaler] 2 puff INHALATION RT-BID 09/17/22 [History] Cyanocobalamin [Vitamin B-12] 1,000 mcg PO DAILY #30 tab 09/20/22 [Rx] Folic Acid 1 mg PO DAILY #30 tab 09/20/22 [Rx] Multivitamins, Thera [Multivitamin (formulary)] 1 each PO DAILY #30 tab 09/20/22 [Rx] Thiamine [Vitamin B-1] 100 mg PO DAILY #30 tab 09/20/22 [Rx] Tobramycin 0.3% Ophth Soln [Tobrex 0.3% Ophth Soln] 1 drops BOTH EYES Q4HR #5 ml 09/20/22 [Rx] Follow up Appointment(s)/Referral(s): Valentine Leroy MD [Primary Care Provider] - 1 Week (Please call the office to schedule a follow up appointment [phone]) [facility], [NON-STAFF] - 1 Week Ty Ruby MD [STAFF PHYSICIAN] - 1 Week (Please call the office to schedule a follow up appointment, ) Activity/Diet/Wound Care/Special Instructions: Call Dr. Ruby on Friday to schedule follow-up appointment Dr. Leroy office will call on Friday Discharge/Stand Alone Forms: Outpatient Counseling, Inp Substance Abuse Facilities Discharge Disposition: HOME WITH HOME HEALTH SERVICES
[2022-09-20 19:44] VITALS: RESP 18
[2022-09-21] MEDS: TOBRAMYCIN 0.3% OPHTH DROPS 5 ML BTL BOTH EYES SCH ×2 (01:08→04:04)
[2022-09-21] MEDS: SYMBICORT 160-4.5 MCG INHALER INHALATION SCH (07:57)
[2022-09-21 08:50] VITALS: BP 122/75; PULSE 97; TEMP 98.4
== END 2022-09-21 11:06 | disposition home health service (06) | DRG 896 ==
LOC: SUPCPDRO 13:23 → EC 13:23 → 2SICU 14:52 → 5NMEDONC 09-18 16:03
PROVIDERS: ADMIT Internal Medicine; ATTEND Internal Medicine
DX: F10.231 Alcohol dependence with withdrawal delirium (principal); G93.41 Metabolic encephalopathy; S42.202A Unspecified fracture of upper end of left humerus, initial encounter for closed fracture; D61.818 Other pancytopenia; E87.20 Acidosis, unspecified; S42.032A Displaced fracture of lateral end of left clavicle, initial encounter for closed fracture; R29.6 Repeated falls; M47.812 Spondylosis without myelopathy or radiculopathy, cervical region; K70.0 Alcoholic fatty liver; I11.9 Hypertensive heart disease without heart failure; G62.1 Alcoholic polyneuropathy; E87.6 Hypokalemia; E86.0 Dehydration; J45.40 Moderate persistent asthma, uncomplicated; E83.42 Hypomagnesemia; S30.0XXA Contusion of lower back and pelvis, initial encounter; H10.9 Unspecified conjunctivitis; E78.2 Mixed hyperlipidemia; T79.6XXA Traumatic ischemia of muscle, initial encounter; W18.30XA Fall on same level, unspecified, initial encounter; S09.90XA Unspecified injury of head, initial encounter; Z79.51 Long term (current) use of inhaled steroids; Z80.0 Family history of malignant neoplasm of digestive organs; Z82.49 Family history of ischemic heart disease and other diseases of the circulatory system; Z82.5 Family history of asthma and other chronic lower respiratory diseases; Z90.81 Acquired absence of spleen; Z87.891 Personal history of nicotine dependence
CPT/HCPCS: 36415; 70450; 71045; 72125; 80048; 80053; 80306; 80320; 81001; 82550; 82607; 82728; 82746; 83010; 83540; 83550; 83605; 83615; 83735; 85025; 85027; 85045; 85610; 85730; 93005; 94640; 96361; 96372; 96374; 99291

== ENCOUNTER → 2022-09-26 | Outpatient (CLI) | payer MEDICARE, OTHER ==
[2022-09-26 19:58] LABS: BUN/Creat Ratio 13.67 Ratio (12.00-20.00); Blood Urea Nitrogen 8.2 mg/dL (9.0-27.0); Calcium 10.4 mg/dL (8.7-10.3); Carbon Dioxide 25.9 mmol/L (21.6-31.8); Chloride 101 mmol/L (96-109); Glucose 81 mg/dL (70-110); Potassium 3.8 mmol/L (3.5-5.5); Sodium 142 mmol/L (135-145)
[2022-09-26 21:51] LABS: Basophils # (A) 0.18 X 10*3/uL (0.00-0.10); Basophils % (A) 1.6 %; Eosinophils % (A) 2.7 %; HCT 41.9 % (37.2-46.3); HGB 13.3 d/dL (12.0-15.0); Lymphocytes # (A) 2.38 X 10*3/uL (0.90-5.00); Lymphocytes % (A) 21.3 %; MCH 35.4 pg (27.0-32.0); MCHC 31.7 d/dL (32.0-37.0); MCV 111.4 FL (80.0-97.0); Macrocytosis (M) 2+; Mean Platelet Volume 13.4 FL (9.5-12.2); Monocytes # (A) 1.71 X 10*3/uL (0.20-1.00); Monocytes % (A) 15.3 %; NRBC Per 100 WBC 0 X 10*3/uL (0.00-0.01); Neutrophils # (A) 6.51 X 10*3/uL (1.80-7.70); Neutrophils % (A) 58.4 %; Platelet Count 444 X 10*3/uL (140-440); RBC 3.76 X 10*6/uL (4.10-5.20); RDW 14.5 % (11.5-14.5); Toxic Vacuolation 2+; WBC 11.16 X 10*3/uL (4.50-10.00)
== END | disposition home or self-care (01) ==
LOC: LABPAT 12:33
PROVIDERS: ATTEND Orthopaedic Surgery
DX: Z01.812 Encounter for preprocedural laboratory examination (principal); S42.231A 3-part fracture of surgical neck of right humerus, initial encounter for closed fracture; I45.10 Unspecified right bundle-branch block; R94.31 Abnormal electrocardiogram [ECG] [EKG]; Z22.322 Carrier or suspected carrier of Methicillin resistant Staphylococcus aureus; X58.XXXA Exposure to other specified factors, initial encounter
CPT/HCPCS: 80048; 85025; 87070; 93005

== ENCOUNTER 2022-09-30 07:44 | Observation (INO) | payer MEDICARE, OTHER ==
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
[~2022-09-30 07:44] MED LIST: ACETAMINOPHEN TAB 500 MG TAB PO PRN; DEXAMETHASONE SOD PHOSPHATE 4 MG/ML 1 ML VIAL IV ONE; HYDROmorphone 0.5 MG/0.5 ML SYRINGE IVP PRN; MELOXICAM 7.5 MG TAB PO PRN; MIDAZOLAM 2 MG/2 ML VIAL IV PRN; ONDANSETRON 4 MG/2 ML VIAL IVP ONE; SCOPOLAMINE 1 MG/72 HR PATCH TRANSDERM ONE; TRANEXAMIC 1,000 MG/100ML-NACL 1,000 MG in SALINE 1 100ML.BAG IVPB PRN
[2022-09-30] MEDS: LACTATED RINGERS 1,000 ML IV SCH (08:48)
[2022-09-30] MEDS ORDERED: HYDROmorphone (PF) 1 MG/ML ONE (09:44)
[2022-09-30] MEDS ORDERED: fentaNYL (PF) 50 MCG/ML 2 ML AMP ONE (09:44)
[2022-09-30] MEDS ORDERED: PROPOFOL 10 MG/ML 20 ML VIAL IV ONE (09:44)
[2022-09-30] MEDS ORDERED: SUCCINYLCHOLINE CHLORIDE 200 MG/10 ML VIAL IV ONE (09:44)
[2022-09-30] MEDS ORDERED: ROPIVACAINE 5 MG/ML 30 ML VIAL ONE (09:44)
[2022-09-30] MEDS ORDERED: LIDOCAINE 4% LTA KIT (4 ML) TOPICAL ONE (09:44)
[2022-09-30] MEDS ORDERED: DEXAMETHASONE SOD PHOSPHATE 4 MG/ML 1 ML VIAL ONE (09:44)
[2022-09-30] MEDS ORDERED: LIDOCAINE 2% INJ 20 MG/ML (2 ML VIAL) ONE (09:44)
[2022-09-30] MEDS ORDERED: MIDAZOLAM 2 MG/2 ML VIAL ONE (09:44)
[2022-09-30] MEDS ORDERED: TRANEXAMIC 1,000 MG/100ML-NACL PREMIX BAG ONE (09:44)
[2022-09-30] MEDS ORDERED: ceFAZolin 1,000 MG in SODIUM CHLORIDE 0.9% 1,000 ML IRRIGATION ONE (10:00)
[2022-09-30] MEDS ORDERED: HYDROmorphone 0.5 MG/0.5 ML SYRINGE IVP PRN (12:03)
[2022-09-30] MEDS ORDERED: SENNOSIDES-DOCUSATE SODIUM 1 EACH TAB PO PRN (12:03)
[2022-09-30] MEDS ORDERED: HYDROcodone/APAP 5-325MG 1 EACH TAB PO PRN (12:03)
--- NOTE | 2022-09-30 12:19 | P.OP ---
Date of Procedure: 09/30/22 Preoperative Diagnosis: Displaced three-part left proximal humerus fracture Postoperative Diagnosis: Same Procedure(s) Performed: Left cemented reverse total shoulder arthroplasty Implants: [employer] Xtend size 12 long stem cemented humeral component with a size 1 epiphysis, 36+3 articular surface, 36 mm glenosphere with +10 baseplate Anesthesia: dina SEE Surgeon: Ty Ruby Academic Intern #1: Chago Mena Estimated Blood Loss (ml): 200 Pathology: none sent Condition: stable Disposition: PACU Indications for Procedure: The patient is a 77-year-old female presents after injuring herself on 09/16/2022 after a fall. Upon evaluation she is a significantly displaced three-part left proximal humerus fracture. There was significant comminution. A discussion of the risks and benefits of operative intervention was made with patient. She opted to proceed with surgery. Operative risks to include infection, neurovascular injury, development of blood clots, fracture, instability, and possible need for subsequent procedures was discussed. Informed consent was obtained. Operative Findings: As below Description of Procedure: The patient was brought to the operating room, and after induction of general anesthesia was placed in a beachchair position. The bony prominences were appropriately padded. The left upper extremity was prepped and draped in normal fashion. The bony outlines the coracoid process, distal clavicle, and acromion were outlined with a skin marker. A pulse centimeter deltopectoral incision was made lateral to the coracoid process. Skin was incised sharply. Subcutaneous tissues were divided bluntly. Electrocautery was used for hemostasis. The cephalic vein was identified and gently retracted laterally with the deltoid. The deltopectoral was bluntly developed. Subdeltoid adhesions were then released. The self-retaining retractor was placed. The conjoined tendon was retracted medially and the deltoid laterally. The biceps was identified. Its sheath was opened. A biceps tenotomy was performed along the remaining tendon did retract distally. The greater and lesser tuberosity fragments were identified and intact with #2 Ethibond suture.. Attention was then paid towards preparing the glenoid. An anterior and posterior retractors placed. The labrum was released from the 6-12 o'clock position. Remaining biceps was removed as well. A guidepin was placed in the inferior aspect of the glenoid with the guide slightly tilting inferior. The reamer was used down to a bleeding bony surface. The central peg hole was drilled. The +10 baseplate was inserted with good purchase. Inferior, superior, and posterior locking screws the appropriate length were placed. Good purchase was obtained. The 38 mm glenosphere was inserted over a guidewire. This was fully seated. Care was taken to avoid any soft tissue interposition. Attention was then paid towards preparing the proximal humerus. The canal was hand reamed up to size 12. I planned on a long cemented stem. A size 12 stem with a size 1 epiphysis was placed and 20 of retroversion. This was held at the appropriate height with the alignment clamp. Trial reduction was obtained with a 36 mm + 3 articular surface. The shoulder was taken through range of motion. The shoulder was felt to be stable in flexion and extension with internal and external rotation. I felt there was adequate jain of soft tissue tension judging off the conjoined tendon. The shoulder was gently dislocated. The trial components were then removed. The final size 12 long stem cemented humeral component with a size 1 epiphysis was fully seated. There was good rotational stability. The 36 mm + 3 articular surface was impacted. The shoulder again was gently reduced and taken through range of motion. Again it was felt to be stable in all planes. Pulsatile lavage was utilized. The greater and lesser tuberosities were reattached to each other with #2 Ethibond suture. The rotator interval was closed with running #2 Ethibond suture. Previously placed Ethibond suture in the humeral shaft was then utilized anchor these tuberosities. The deltopectoral interval was closed with interrupted 2-0 Vicryl sutures. The skin was reapproximated with 3-0 subcuticular Prolene suture. Steri-Strips were applied. A sterile dressing was applied. A sling was placed. The patient was awoken from general anesthesia and transferred to recovery room in good condition. Blood loss was estimated at 200 mL. No complications were incurred. Sponge and needle counts were correct at the end the case. Chago LIEBERMAN assisted during the major components of the case to include exposure, glenoid and humeral preparation, implantation, and closure.
--- NOTE | 2022-09-30 13:11 | XR ---
EXAMINATION TYPE: XR shoulder limited LT DATE OF EXAM: 09/30/2022 COMPARISON: 09/17/2022 HISTORY: Fracture humeral neck TECHNIQUE: Single AP left shoulder FINDINGS: There is been placement of a left shoulder prosthesis with glenoid component. No acute frac ture is identified. Postsurgical changes are present. IMPRESSION: 1. No acute fractures left humerus post shoulder replacement
[2022-09-30 13:48] LABS: Basophils % (A) 0 %; Eosinophils # (A) 0.1 k/uL (0-0.7); Eosinophils % (A) 1 %; HCT 39.3 % (34.0-46.0); HGB 12.5 gm/dL (11.4-16.0); Hypochromasia Moderate; Lymphocytes # (A) 0.9 k/uL (1.0-4.8); Lymphocytes % (A) 6 %; MCH 35.4 pg (25.0-35.0); MCHC 31.8 g/dL (31.0-37.0); MCV 111.4 fL (80.0-100.0); Macrocytosis Marked; Mean Platelet Volume 11.5; Monocytes # (A) 0.2 k/uL (0-1.0); Monocytes % (A) 1 %; Neutrophils # (A) 12.8 k/uL (1.3-7.7); Neutrophils % (A) 91 %; RBC 3.53 m/uL (3.80-5.40); RDW 14.1 % (11.5-15.5)
[2022-09-30 13:52] LABS: Platelet Count 464 k/uL (150-450)
[2022-09-30] MEDS ORDERED: LORazepam 2 MG/ML INJ IV PRN ×3 (14:07)
[2022-09-30] MEDS ORDERED: LORazepam 0.5 MG TAB PO PRN (14:07)
[2022-09-30] MEDS ORDERED: THIAMINE 100 MG/ML 2 ML VIAL IM STA (14:07)
[2022-09-30] MEDS ORDERED: LORazepam 1 MG TAB PO PRN (14:07)
[2022-09-30] MEDS ORDERED: ALBUTEROL NEBULIZED 2.5 MG/3 ML INHALATION PRN (14:44)
[2022-09-30] MEDS: HYDROcodone/APAP 5-325MG 1 EACH TAB PO PRN (20:05)
--- NOTE | 2022-09-30 20:17 | P.ANPRN ---
Procedure Note - Anesthesia - Nerve Block Performed Left Interscalene Single Time Out Performed: Yes Date of Procedure: 09/30/22 Procedure Start Time: 09:05 Procedure Stop Time: 09:10 Location of Patient: PreOp Indication: Acute Post-Operative Pain, Requested by Surgeon Sedation Type: Sedate with meaningful contact maintained Preparation: Sterile Prep Position: Supine Needle Types: Pajunk Needle Gauge: 21 Ultrasound used to visualize needle placement: Yes Ultrasound used to observe medication spread: Yes Blood Aspirated: No Pain Paresthesia on Injection Noted: No Resistance on Injection: Normal Image Stored and Saved: Yes Events: Uneventful and Well Tolerated (Ropivacaine 0.5% 20 mL plus dexamethasone 4 mg)
[2022-09-30] MEDS: SYMBICORT 160-4.5 MCG INHALER INHALATION SCH (20:20)
[2022-09-30] MEDS: TOBRAMYCIN 0.3% OPHTH DROPS 5 ML BTL BOTH EYES SCH (21:16)
--- NOTE | 2022-09-30 21:36 | CONS ---
CONSULTATION REASON FOR CONSULTATION: Advice regarding asthma and other multiple medical issues requested by Orthopedic Surgery. HISTORY OF PRESENT ILLNESS: This is a 77-year-old woman with a past medical history of asthma, who was admitted recently with left displaced proximal humerus fracture. The patient underwent open reduction and fixation of the fracture. The patient was apparently admitted to ICU previously. The patient had a history of DTs also. There is no history of any fever, rigor, or chills at this time. PAST MEDICAL HISTORY: Alcohol intake and as well as asthma. Rest of the history and rest of the chart are also reviewed. HOME MEDICATIONS: Reviewed Doses and rest of the medications are noted. ALLERGIES: noted FAMILY HISTORY: ntd SOCIAL HISTORY: Previous history of smoking. Alcohol history as mentioned earlier. REVIEW OF SYSTEMS: Fourteen-point review is negative except as mentioned earlier. PHYSICAL EXAMINATION: VITAL SIGNS: Pulse is 59, blood pressure 138/60, respirations 16. HEENT: Conjunctivae are normal. NECK: No jugular venous distention. CARDIOVASCULAR: S1 and S2 muffled. RESPIRATORY: Breath sounds diminished at the bases. ABDOMEN: Soft and nontender. EXTREMITIES: Legs, no edema. Left arm status post surgery. NERVOUS SYSTEM: Nonfocal. LABORATORY DATA: Reviewed. ASSESSMENT: 1. Status post fixation of the left displaced proximal humerus fracture. 2. Apparent history of EtOH. 3. History of asthma. 4. Hypertension. 5. History of methicillin-resistant Staphylococcus aureus. 6. Multiple medical issues. RECOMMENDATIONS AND DISCUSSION: In this 77-year-old woman presented with multiple medical issues, at this time, I recommend to continue the home medications. I talked with the staff nurse at length, and there was a concern of alcohol even though the patient reports last alcohol intake about 2 weeks ago. The patient apparently was admitted to an ICU for DTs per staff. I would recommend to continue the CIWA protocol and repeat labs. Monitor blood pressure closely. DVT prophylaxis. Incentive spirometry. We will follow the patient closely with you. The patient may be asked to follow with primaryr closely after discharge. MMODL / IJN: [id number] / MTDD
[2022-10-01] MEDS: HYDROcodone/APAP 5-325MG 1 EACH TAB PO PRN ×4 (00:39→18:39)
[2022-10-01] MEDS: HYDROmorphone 0.5 MG/0.5 ML SYRINGE IVP PRN ×5 (03:42→22:56)
[2022-10-01] MEDS: LACTATED RINGERS 1,000 ML IV SCH (05:36)
[2022-10-01] MEDS: MULTIVITAMINS, THERA 1 EACH TAB PO SCH (09:11)
[2022-10-01] MEDS: THIAMINE 100 MG TAB PO SCH (09:11)
[2022-10-01] MEDS: FOLIC ACID 1 MG TAB PO SCH (09:11)
[2022-10-01] MEDS: ASPIRIN 325 MG TAB PO SCH (09:11)
[2022-10-01] MEDS: TOBRAMYCIN 0.3% OPHTH DROPS 5 ML BTL BOTH EYES SCH ×2 (09:18→21:45)
[2022-10-01] MEDS: SYMBICORT 160-4.5 MCG INHALER INHALATION SCH ×2 (09:31→20:45)
--- NOTE | 2022-10-01 12:01 | P.PN ---
Subjective Progress Note Date: 10/01/22 Principal diagnosis: status post reverse left total shoulder arthroplasty Patient is examined today, she is resting in her hospital bed. She is utilizing the arm sling at this time. She states that the pain is a little bit worse compared to prior to surgery, she is requiring IV Dilaudid. She is also taking oral medications. She has been tolerating a good diet, she is urinating with no issues. She currently denies any headaches, lightheadedness, chest pain or shortness of breath. Objective - Vital Signs Vital signs: Vital Signs Temp 98.1 F 10/01/22 07:11 Pulse 74 10/01/22 07:11 Resp 18 10/01/22 07:11 BP 138/79 10/01/22 07:11 Pulse Ox 97 10/01/22 07:11 FiO2 Intake & Output 09/30/22 10/01/22 10/01/22 18:59 06:59 18:59 Intake Total 1481 780 Output Total 200 Balance 1281 780 Weight 55.1 kg Intake: IV 1001 Intake, IV Titration 300 Amount Lactated Ringers 1,000 ml 200 @ 20 mls/hr IV .Q24H KEE Rx#:[id number] ceFAZolin 2 gm In Sodium 100 Chloride 0.9% 50 ml @ 100 mls/hr IVPB Q8HR [facility] Rx# :[id number] Oral 480 480 Output: Estimated Blood Loss 200 Other: Voiding Method Toilet # Voids 1 2 - Exam Left upper extremity: Postoperative bandages removed today at bedside, the Steri-Strips and suture all in good position. There is ecchymosis and swelling noted throughout the left upper extremity, the compartments of the upper arm remain soft and compressible Range of motion was limited at the shoulder due to recent surgery and discomfort, elbow extension, elbow flexion, wrist extension, wrist flexion, environmental construction engineer are intact Sensation to light touch throughout the extremity is intact Radial and ulnar pulses are 2+ - Labs CBC & Chem 7: 09/30/22 13:10 Labs: Abnormal Lab Results - Last 24 Hours (Table) 09/30/22 Range/Units 13:10 WBC 14.0 H (3.8-10.6) k/uL RBC 3.53 L (3.80-5.40) m/uL MCV 111.4 H (80.0-100.0) fL MCH 35.4 H (25.0-35.0) pg Plt Count 464 H D (150-450) k/uL Neutrophils # 12.8 H (1.3-7.7) k/uL Lymphocytes # 0.9 L (1.0-4.8) k/uL Macrocytosis Marked A Assessment and Plan Assessment: Postoperative day #1 status post reverse left total shoulder arthroplasty Chronic alcoholism Other medical comorbidities Plan: Pain control, continue with both oral and IV medication as needed DVT prophylaxis, aspirin 325 mg daily Wound care, a new dressing was placed today. Please keep clean and dry Continue to utilize arm sling, nonweightbearing with the left upper extremity Okay to utilize ice packs on the left upper extremity Medical recommendations Monitor for DTs Discharge planning: Due to the patient's pain level and need for IV pain medication, would like to keep an hospital for additional night with plan for discharge to home with home healthcare on 10/02/2022 Time with Patient: Less than 30
--- NOTE | 2022-10-01 13:35 | PN ---
PROGRESS NOTE DATE OF SERVICE: 10/01/2022 SUBJECTIVE: This is a 77-year-old woman, who was admitted after fixation of the left displaced proximal humerus fracture, which is improving significantly. There are no active DTs noted. No chest pain. No palpitation. OBJECTIVE: VITAL SIGNS: Pulse is 74, blood pressure 138/70, respirations 18. CHEST: Clear to auscultation. CARDIOVASCULAR: S1 and S2. ABDOMEN: Soft. EXTREMITIES: Left arm status post surgery. LABORATORY DATA: WBC 14. Rest of the labs are noted. ASSESSMENT: 1. Status post fixation of the left displaced proximal humerus fracture. 2. History of EtOH apparently. 3. History of asthma. 4. Hypertension. 5. History of methicillin-resistant Staphylococcus aureus. 6. Multiple medical issues. RECOMMENDATIONS: Recommend to continue current medications. Continue symptomatic treatment. I will recommend repeat labs tomorrow. Otherwise, keep watching for any withdrawal symptoms. Follow the CIWA protocol. Closely follow with Orthopedic Surgery. Further recommendations to follow. MMODL / IJN: [id number] /
[2022-10-02] MEDS: HYDROmorphone 0.5 MG/0.5 ML SYRINGE IVP PRN (05:10)
--- NOTE | 2022-10-02 08:44 | P.DS ---
Providers Date of admission: 09/30/2022 Expected date of discharge: 10/02/22 Attending physician: Ty Ruby Consults: 09/30/22 12:06 Consult Physician Routine Consulting Provider: Valentine Leroy Consult Reason/Comments: Medical Management s/p reverse LTSA DT PROTOCOL Do you want consulting provider notified?: Yes Primary care physician: Valentine Leroy Hospital Course: Date of admission: 10/27/2022 Date of discharge: 10/02/2029 Admission diagnosis: Displaced three-part left proximal humerus fracture Postoperative Diagnosis: Same Procedure(s) Performed: Left cemented reverse total shoulder arthroplasty Discharge diagnosis: Same Attending physician: Dr. Ruby Surgical procedures: Left cemented reverse total shoulder arthroplasty Brief history: Patient is a 77-year-old female with a history of displaced three-part left proximal humerus fracture. At this point patient has failed conservative treatment measures and has opted to proceed with a elective left cemented reverse total shoulder arthroplasty. Hospital course: Details of patient's surgery can be found in operative report. Patient tolerated the procedure well and was subsequently transported to orthopedic floor. Patient's orthopeidc and medical care was provided daily. Patient had daily laboratory tests performed for evaluation of overall blood counts. Patient had daily physical therapy to include strengthening range of motion as well as education with walker ambulation. Patient was treated with aspirin for their postoperative DVT prophylaxis during their inpatient stay. Patient was noted to have a relatively uneventful postoperative course. Patient reported satisfactory pain control with oral pain medications by postoperative day 2. Patient showed satisfactory progress with physical therapy. Patient moved steadily through the program and had no difficulty meeting the goals by postoperative day 2. Given patient's otherwise satisfactory course and having met physical therapy goals, plan is to discharge patient home on postoperative day 2. Discharge condition/disposition: Patient will be discharged home in stable condition. Discharge medications: Instructions are given on resumption of patient's normal daily medications per primary care recommendation, in addition patient will be prescribed [place]; Vistaril; senna; aspirin 325 mg daily 1 month. Discharge instructions: 1. Wound care and infection precautions, keep incision dry and covered while showering, no lotions, creams, moisturizers. No soaking, tubs, pools, hottubs. Do not scrub over the incision. 2. Remain nonweightbearing left upper extremity. 3. Ice when necessary. Do not exceed 20 minutes per hour with ice pack. 4. Utilize sling 5. Visiting nursing care. 6. Maintain sling to left upper extremity at all times 7. Pain meds and anticoagulants per prescription. 8. Pain medication has potential to cause constipation. Increase oral fluid and fiber intake. Contact primary care provider if you have not had a bowel movement within 48 hours after discharge 9. No anti-inflammatory medication until discussed at first post operative visit, this including Motrin, Aleve, Mobic, Diclofenac. 10. Follow up in office at 2 weeks postop with Michael Martinez PA-C / Chago Mena PA-C 11. Follow up with your primary care doctor 7-10 days after discharge. 12. Contact [facility] with any questions, . Assessment: Displaced three-part left proximal humerus fracture Procedures: Left cemented reverse total shoulder arthroplasty Patient Condition at Discharge: Good Plan - Discharge Summary Discharge Rx Participant: No New Discharge Prescriptions: New Aspirin 325 mg PO DAILY #28 tab HYDROcodone/APAP 5-325MG [[place] 5-325] 1 - 2 tab PO Q6HR PRN #36 tab PRN Reason: Pain Sennosides/Docusate Sodium [Senna Plus 8.6-50 mg Softgel] 1 each PO DAILY #20 capsule hydrOXYzine pamoate [Vistaril] 25 mg PO TID #21 capsule No Action Budesonide/Formoterol Fumarate [Symbicort 160-4.5 Mcg Inhaler] 2 puff INHALATION RT-BID Albuterol Inhaler [Ventolin Hfa Inhaler] 1 - 2 puff INHALATION Q6H PRN PRN Reason: Shortness Of Breath Tobramycin 0.3% Ophth Soln [Tobrex 0.3% Ophth Soln] 1 drops BOTH EYES BID Acetaminophen Tab [Tylenol] 650 mg PO Q4-6H PRN PRN Reason: Pain Discharge Medication List Budesonide/Formoterol Fumarate [Symbicort 160-4.5 Mcg Inhaler] 2 puff INHALATION RT-BID 09/17/22 [History] Acetaminophen Tab [Tylenol] 650 mg PO Q4-6H PRN 09/27/22 [History] Albuterol Inhaler [Ventolin Hfa Inhaler] 1 - 2 puff INHALATION Q6H PRN 09/27/22 [History] Tobramycin 0.3% Ophth Soln [Tobrex 0.3% Ophth Soln] 1 drops BOTH EYES BID 09/27/22 [History] Aspirin 325 mg PO DAILY #28 tab 10/02/22 [Rx] HYDROcodone/APAP 5-325MG [[place] 5-325] 1 - 2 tab PO Q6HR PRN #36 tab 10/02/22 [Rx] Sennosides/Docusate Sodium [Senna Plus 8.6-50 mg Softgel] 1 each PO DAILY #20 capsule 10/02/22 [Rx] hydrOXYzine pamoate [Vistaril] 25 mg PO TID #21 capsule 10/02/22 [Rx] Follow up Appointment(s)/Referral(s): Chago Mena PAC [PHYSICIAN OUTDOOR [employer] TRAINER] - 2 Weeks Patient Instructions/Handouts: Proximal Humerus Fracture (DC) Activity/Diet/Wound Care/Special Instructions: Discharge instructions: 1. Wound care and infection precautions, keep incision dry and covered while showering, no lotions, creams, moisturizers. No soaking, tubs, pools, hottubs. Do not scrub over the incision. 2. Remain nonweightbearing left upper extremity. 3. Ice when necessary. Do not exceed 20 minutes per hour with ice pack. 4. Utilize sling 5. Visiting nursing care. 6. Maintain sling to left upper extremity at all times 7. Pain meds and anticoagulants per prescription. 8. Pain medication has potential to cause constipation. Increase oral fluid and fiber intake. Contact primary care provider if you have not had a bowel movement within 48 hours after discharge 9. No anti-inflammatory medication until discussed at first post operative visit, this including Motrin, Aleve, Mobic, Diclofenac. 10. Follow up in office at 2 weeks postop with Michael Martinez PA-C / Chago Mena PA-C 11. Follow up with your primary care doctor 7-10 days after discharge. 12. Contact [facility] with any questions, . Discharge Disposition: HOME WITH HOME HEALTH SERVICES
[2022-10-02] MEDS: SYMBICORT 160-4.5 MCG INHALER INHALATION SCH (08:52)
--- NOTE | 2022-10-02 09:13 | P.PN ---
Subjective Progress Note Date: 10/02/22 Principal diagnosis: Displaced three-part left proximal humerus fracture Patient seen at bedside this morning lying semirecumbent position today with sling to left upper extremity. Patient says she is looking forward to going home later today. Patient says her pain is under better control today. Patient says she has urinated daily without issue. Patient says she has not had bowel movement yet, however, patient says she has been passing gas. Patient denies any other issues at this time. She says she has been using ice to left shoulder and that has provided some alleviation of pain. Patient denies chest pain, fever, shortness of breath, nausea, vomiting, change in vision, loss of bowel/bladder control. Objective - Vital Signs Vital signs: Vital Signs Temp 98.3 F 10/02/22 01:25 Pulse 73 10/02/22 01:25 Resp 19 10/02/22 01:25 BP 121/73 10/02/22 01:25 Pulse Ox 98 10/02/22 01:25 FiO2 Intake & Output 10/01/22 10/02/22 10/02/22 18:59 06:59 18:59 Intake Total 1080 Balance 1080 Intake: Oral 1080 Other: Voiding Method Toilet # Voids 3 2 - Exam Left upper extremity: Incision is clean, dry, and intact. Sling present to left upper extremity. Patient has full range of motion of left wrist in flexion and extension. Cigar Packer And Picker strength 5/5 bilaterally. Radial pulses intact, 2+ bilaterally. The dressing is in good condition. There is minimal soft tissue swelling and ecchymosis surrounding the medial and lateral aspects of the incision. Calf is soft, no tenderness with palpation. Plantar flexion, dorsiflexion, EHL, FHL are intact. Sensory exam to light touch throughout the extremity is intact, dorsal pedis pulses 2+. - Labs CBC & Chem 7: 09/30/22 13:10 Assessment and Plan Assessment: Displaced three-part left proximal humerus fracture post-op day #1 s/p Left cemented reverse total shoulder arthroplasty Plan: 1. Displaced three-part left proximal humerus fracture - surgery perfromed 09/30/2022 - Left cemented reverse total shoulder arthroplasty. Patient present this morning w/sling to the left upper extremity. Patient's pain is under better control this morning. Discharge home today with health services. 2. Appreciate medical management 3. Pain management - [place]; Vistaril 4. DVT prophylaxis - aspirin 325 mg daily 5. GI prophylaxis - senna 6. Encourage incentive spirometer use 7. PT/OT - nonweightbearing left upper extremity. Maintain sling to left upper extremity in sling at all times 8. Discharge planning - Discharge home today with health services. Time with Patient: Less than 30
[2022-10-02] MEDS: THIAMINE 100 MG TAB PO SCH (09:27)
[2022-10-02] MEDS: FOLIC ACID 1 MG TAB PO SCH (09:27)
[2022-10-02] MEDS: MULTIVITAMINS, THERA 1 EACH TAB PO SCH (09:27)
[2022-10-02] MEDS: HYDROcodone/APAP 5-325MG 1 EACH TAB PO PRN ×2 (09:28→15:15)
[2022-10-02] MEDS: TOBRAMYCIN 0.3% OPHTH DROPS 5 ML BTL BOTH EYES SCH (09:28)
[2022-10-02] MEDS: ASPIRIN 325 MG TAB PO SCH (09:28)
[2022-10-02 15:16] VITALS: BP 112/73; PULSE 81; RESP 16; TEMP 97.9
[2022-10-02 15:39] LABS: Basophils # (A) 0.16 X 10*3/uL (0.00-0.10); Eosinophils # (A) 0.19 X 10*3/uL (0.04-0.35); Eosinophils % (A) 1.2 %; HCT 31.6 % (37.2-46.3); HGB 9.8 d/dL (12.0-15.0); Lymphocytes % (A) 13.7 %; MCH 34.5 pg (27.0-32.0); MCV 111.3 FL (80.0-97.0); Mean Platelet Volume 12.8 FL (9.5-12.2); Monocytes # (A) 1.36 X 10*3/uL (0.20-1.00); Monocytes % (A) 8.8 %; NRBC Per 100 WBC 0 X 10*3/uL (0.00-0.01); Neutrophils # (A) 11.34 X 10*3/uL (1.80-7.70); Neutrophils % (A) 73.9 %; Platelet Count 407 X 10*3/uL (140-440); RBC 2.84 X 10*6/uL (4.10-5.20); RDW 15.1 % (11.5-14.5); WBC 15.37 X 10*3/uL (4.50-10.00)
[2022-10-02 16:02] LABS: ALT 11 U/L (8-44); AST 26 U/L (13-35); Albumin 3.6 d/dL (3.8-4.9); Albumin/Globulin Ratio 1.71 Ratio (1.60-3.17); Alkaline Phosphatase 90 U/L (41-126); Blood Urea Nitrogen 8.1 mg/dL (9.0-27.0); Calcium 9.3 mg/dL (8.7-10.3); Carbon Dioxide 24.2 mmol/L (21.6-31.8); Chloride 102 mmol/L (96-109); Globulin 2.1 d/dL (1.6-3.3); Glucose 78 mg/dL (70-110); Potassium 4.7 mmol/L (3.5-5.5); Sodium 141 mmol/L (135-145); Total Bilirubin 0.3 mg/dL (0.3-1.2); Total Protein 5.7 d/dL (6.2-8.2)
--- NOTE | 2022-10-02 16:57 | P.PN ---
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 Patient presented to the hospital under Dr. Ruby underwent a left cemented reverse total shoulder arthroplasty. She has been preparing for discharge home today. She has been afebrile, heart rate 70s to 80s, blood pressure 112/73, pulse ox 99% on room air. Repeat blood work today reveals WBC 15.3, hemoglobin 9.8, platelet count 407. Electrolytes are normal. BUN 8 and creatinine 0.5. Liver function tests are normal. Glucose 78. Medication reconciliation has bee n reviewed for discharge. REVIEW OF SYSTEMS Constitutional: No fever, no chills, no night sweats. No weight change. No weakness, fatigue or lethargy. No daytime sleepiness. EENT: No headache. No blurred vision or double vision, no loss of vision. No loss of Hearing, no ringing in the ears, no dizziness. No nasal drainage or congestion. No epistaxis. No sore throat. Lungs: No shortness of breath, cough, no sputum production. No wheezing. Cardiovascular: No chest pain, no lower extremity edema. No palpitations. No paroxysmal nocturnal dyspnea. No orthopnea. No lightheadedness or dizziness. No syncopal episodes. Abdominal: No abdominal pain. No nausea, vomiting. No diarrhea. No constipation. No bloody or tarry stools. No loss of appetite. Genitourinary: No dysuria, increased frequency, urgency. No urinary retention. Musculoskeletal: No myalgias. No muscle weakness, no gait dysfunction, no frequent falls. No back pain. No neck pain. Mild discomfort left shoulder Integumentary: No wounds, no lesions. No rash or pruritus. No unusual bruising. No change in hair or nails. Neurologic: No aphasia. No facial droop. No change in mentation. No head injury. No headache. No paralysis. No paresthesia. Psychiatric: No depression. No anxiety. No mood swings. Endocrine: No abnormal blood sugars. No weight change. No excessive sweating or thirst. No cold intolerance. PHYSICAL EXAMINATION General: 77-year-old female laying down in bed appears to be a bit confused. HEENT: Head is atraumatic, normocephalic, pupils were equal round reactive to light and recommendation, extraocular muscle movement were intact, sclera nonicteric, conjunctivae were pale, mucous membranes of the mouth are somewhat dry. Neck: Supple, no JVP, normal carotid upstroke bilaterally, no lymphadenopathy. Chest: Decreased breath sounds at the bases, few rhonchi, no expiratory wheezes, no chest wall tenderness, no intercostal retractions. Heart: First heart sound is normal, second heart sounds normal there is systolic ejection murmur 2/6 located in the left sternal border. Abdomen: Soft, nontender, nondistended, positive bowel sounds. Extremities: There is no edema no calf tenderness DP +2 bilaterally. Sling and dressing to the left shoulder. Neurologic examination: Patient is awake alert and oriented X 3 , cranial nerves II-12 appear grossly intact, muscle power was 3 out of 5 in bilateral lower extremities ASSESSMENT AND PLAN 1. Left humerus fracture status post left reverse total shoulder arthroplasty. Continue current pain management, continue sling, dressing changes according to instructions from orthopedics.. 2. Chronic alcohol use and dependence. Alcohol cessation. 3. Moderate persistent asthma. Continue albuterol inhaler and Symbicort 160/4.5 g 2 puffs inhalation twice every day. 4. Mixed hyperlipidemia. Patient is not taking a statin at this point in time. 5. Hypertension and hypertensive cardiovascular disease. Patient is currently not on any medication monitor her blood pressure very closely. 6. Spondylosis of the cervical spine without myelopathy. 7. Alcoholic fatty liver disease. Abstinence from alcohol. 8. DVT prophylaxis. Aspirin 325 mg daily. DISCHARGE PLAN Home. Impression and plan of care have been directed as dictated by the signing physician. Kelsey Mckeon nurse practitioner acting as scribe for signing physician. Objective - Vital Signs Vital signs: Vital Signs Temp 98.3 F 10/02/22 01:25 Pulse 73 10/02/22 01:25 Resp 19 10/02/22 01:25 BP 121/73 10/02/22 01:25 Pulse Ox 98 10/02/22 01:25 FiO2 Intake & Output 07/04/23 07/05/23 07/05/23 18:59 06:59 18:59 Intake Total 1080 Balance 1080 Intake: Oral 1080 Other: Voiding Method Toilet Toilet # Voids 3 2 - Labs CBC & Chem 7: 10/02/22 08:14 10/02/22 08:14
== END 2022-10-02 17:03 | disposition home health service (06) ==
LOC: OR 07:44 → 4SSUR 12:56 → OR 10-01 12:02 → 4SSUR 10-01 12:02
PROVIDERS: ADMIT Orthopaedic Surgery; ATTEND Orthopaedic Surgery
DX: S42.232A 3-part fracture of surgical neck of left humerus, initial encounter for closed fracture (principal); G89.18 Other acute postprocedural pain; F10.20 Alcohol dependence, uncomplicated; I11.9 Hypertensive heart disease without heart failure; E78.5 Hyperlipidemia, unspecified; J45.40 Moderate persistent asthma, uncomplicated; K86.0 Alcohol-induced chronic pancreatitis; K70.0 Alcoholic fatty liver; M47.812 Spondylosis without myelopathy or radiculopathy, cervical region; E78.2 Mixed hyperlipidemia; Z87.891 Personal history of nicotine dependence; Z82.49 Family history of ischemic heart disease and other diseases of the circulatory system; Z90.81 Acquired absence of spleen; Z79.51 Long term (current) use of inhaled steroids; Z88.5 Allergy status to narcotic agent; Z86.14 Personal history of Methicillin resistant Staphylococcus aureus infection; W01.0XXA Fall on same level from slipping, tripping and stumbling without subsequent striking against object, initial encounter; Y92.000 Kitchen of unspecified non-institutional (private) residence as the place of occurrence of the external cause
CPT/HCPCS: 96376 ×2; 96374; 94640 ×3; 64415; 80053; 85025 ×2; 73020; 23472; G0378 ×2; C1713; C1776; J2250; J0330; J1100; J3411; J0690 ×3; J2405; J3010; J1170 ×3; J2795; J2704; J2001

== ENCOUNTER 2022-10-13 19:36 | Emergency (ER) | payer MEDICARE, OTHER ==
[2022-10-13 20:03] VITALS: RESP 18; TEMP 98.4
--- NOTE | 2022-10-13 21:37 | US ---
EXAMINATION TYPE: US venous doppler duplex UE LT DATE OF EXAM: 10/13/2022 COMPARISON: NONE CLINICAL INDICATION: Female, 77 years old with history of Swelling, r/o DVT; Patient had shoulder rep lacement reversal surgery 09/30/2022, she missed her ortho appt 3 days ago and still has large bandages covering shoulder, pain in left upper arm and shoulder, zero swelling, no h/o dvt SIDE PERFORMED: Left Left Arm: Negative for DVT unable to view distal subclavian vein due to bandanges, unable to view b asilic vein within medial arm due to lack of range of motion at this time, basilic was seen at juncti on of axillary vein and patent. IMPRESSION: 1. No evidence for deep vein thrombosis. 2. Nonvisualization of the distal subclavian vein, and portions of the basilic vein.
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
[2022-10-13 22:31] VITALS: BP 148/80; PULSE 79
== END 2022-10-13 22:34 | disposition home or self-care (01) ==
LOC: EC 19:36
DX: R60.0 Localized edema (principal); J45.909 Unspecified asthma, uncomplicated; Z87.891 Personal history of nicotine dependence; Z79.51 Long term (current) use of inhaled steroids; Z79.899 Other long term (current) drug therapy; Z88.5 Allergy status to narcotic agent
CPT/HCPCS: 99284

== ENCOUNTER → 2023-10-01 | Outpatient (CLI) | payer MEDICARE, OTHER ==
[2023-10-01 14:10] LABS: African American GFR (CKD) >90 (>60 ml/min/1.73 sqM); Blood Urea Nitrogen 12 mg/dL (7-17); Non-African American GFR(CKD) 88 (>60 ml/min/1.73 sqM)
--- NOTE | 2023-10-01 14:57 | CT ---
EXAMINATION TYPE: CT chest abdomen w con CT DLP: 419.80 mGycm, Automated exposure control for dose reduction was used. DATE OF EXAM: 10/01/2023 2:36 PM COMPARISON: None. CLINICAL INDICATION:Female, 78 years old with history of R63.4 ABNORMAL WEIGHT LOSS; PHH, weight loss and weakness Technique: CT chest abdomen w con; Multiple axial images were obtained. Two-dimensional coronal and s agittal reconstructions were obtained. Contrast used:100ml mL of Isovue 300 with IV Contrast, Oral contrast used: with Oral Contrast Findings: CHEST: LUNGS/ PLEURA: No focal consolidation, pneumothorax or pleural effusion. Mild centrilobular emphysema changes. AIRWAY: Patent and unremarkable. HEART: Size within normal limits. MEDIASTINUM: No gross evidence of adenopathy. VASCULATURE: No aortic aneurysm. MUSCULOSKELETAL: No acute osseous abnormalities. SOFT TISSUES/LYMPH NODES: Unremarkable. LOWER NECK: No significant findings. ABDOMEN: ABDOMEN LIVER: Diffusely hypoattenuating parenchyma. GALLBLADDER AND BILE DUCTS: Unremarkable. PANCREAS: Lower density/hypoenhancing area in the pancreatic head measuring 9 x 18 mm. SPLEEN: Spleen appears surgically absent with small area of suspected spleen tissue likely representi ng splenosis. ADRENAL GLANDS: Unremarkable. KIDNEYS AND URETERS: No evidence of hydronephrosis or renal calculus. The ureters are unremarkable. PELVIS BLADDER: Unremarkable REPRODUCTIVE: Unremarkable. ABDOMEN & PELVIS STOMACH AND BOWEL: No evidence of bowel obstruction. PERITONEUM: No evidence of pneumoperitoneum or free fluid. VASCULATURE: No evidence of aortic aneurysm. MUSCULOSKELETAL: No acute osseous abnormalities LYMPH NODES: No gross evidence for lymphadenopathy. SOFT TISSUE/ABDOMINAL WALL: Unremarkable IMPRESSION: 1. Pancreatic head lesion which is indeterminate. MRI pancreatic mass protocol recommended. Correlat e with serum marker CA19-9. Finding could represent a cystic neoplasm with less likely solid neoplasm . No other masses within the thorax or abdomen visualized. 2. Hepatic steatosis. 3. No evidence for lymphadenopathy within the abdomen or pelvis. Mild paraseptal emphysema changes. 4. Mild emphysema. 5. Spleen appears surgically absent with splenosis.
== END | disposition home or self-care (01) ==
LOC: RADCTMAIN 12:38
PROVIDERS: ATTEND Internal Medicine
DX: R63.4 Abnormal weight loss (principal); J43.9 Emphysema, unspecified; K76.0 Fatty (change of) liver, not elsewhere classified; R53.1 Weakness
CPT/HCPCS: 82565; 84520; 71260; 74160; 36415; Q9967

== ENCOUNTER 2023-10-05 08:32 | Inpatient (IN) | payer MEDICARE, OTHER ==
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
[2023-10-05 09:06] LABS: Basophils # (A) 0.1 k/uL (0-0.2); Basophils % (A) 1 %; Eosinophils # (A) 0.4 k/uL (0-0.7); Eosinophils % (A) 4 %; HCT 40.3 % (34.0-46.0); HGB 12.9 gm/dL (11.4-16.0); Hypochromasia Slight; Lymphocytes # (A) 2.1 k/uL (1.0-4.8); Lymphocytes % (A) 21 %; MCH 35.3 pg (25.0-35.0); MCHC 32.2 g/dL (31.0-37.0); MCV 109.9 fL (80.0-100.0); Macrocytosis Marked; Mean Platelet Volume 10.8; Monocytes # (A) 0.7 k/uL (0-1.0); Monocytes % (A) 7 %; Neutrophils # (A) 6.4 k/uL (1.3-7.7); Neutrophils % (A) 65 %; Platelet Count 359 k/uL (150-450); RBC 3.66 m/uL (3.80-5.40); RDW 14.6 % (11.5-15.5); WBC 9.7 k/uL (3.8-10.6)
[2023-10-05 09:53] LABS: ALT 42 U/L (4-34); African American GFR (CKD) >90 (>60 ml/min/1.73 sqM); Albumin 4.3 g/dL (3.5-5.0); Anion Gap 9 mmol/L; Blood Urea Nitrogen 9 mg/dL (7-17); Calcium 8.8 mg/dL (8.4-10.2); Carbon Dioxide 31 mmol/L (22-30); Chloride 99 mmol/L (98-107); Creatine Kinase 55 U/L (30-135); Glucose 85 mg/dL (74-99); Non-African American GFR(CKD) >90 (>60 ml/min/1.73 sqM); Sodium 139 mmol/L (137-145); Total Bilirubin 1.5 mg/dL (0.2-1.3); Total Protein 7.2 g/dL (6.3-8.2)
[2023-10-05 09:59] LABS: AST 164 U/L (14-36); Alkaline Phosphatase 77 U/L (38-126); Magnesium 1.4 mg/dL (1.6-2.3); Potassium 5.9 mmol/L (3.5-5.1)
[2023-10-05] MEDS: SODIUM CHLORIDE 0.9% 1,000 ML IV STA (10:10)
[2023-10-05] MEDS ORDERED: NALOXONE 0.4 MG/ML 1 ML VIAL IV PRN (11:20)
[2023-10-05] MEDS: ACETAMINOPHEN TAB 500 MG TAB PO STA (11:21)
[2023-10-05] MEDS: MAGNESIUM SULFATE-D5W PMX 1 GM in DEXTROSE/WATER 1 100ML.BAG IVPB SCH ×2 (11:35→15:15)
[2023-10-05 11:39] LABS: Amorphous Sediment,Urine Rare /hpf; Appearance,Urine Turbid (Clear); Bacteria,Urine Moderate /hpf; Bilirubin,Urine Negative (Negative); Blood,Urine Negative (Negative); Color,Urine Yellow; Glucose,Urine (UA) Negative (Negative); Ketones,Urine Trace (Negative); Leukocyte Esterase,Urine Negative (Negative); Mucus,Urine Rare /hpf; Nitrite,Urine Negative (Negative); PH, Urine 5.5 (5.0-8.0); Protein,Urine Trace (Negative); RBC,Urine <1 /hpf (0-5); Specific Gravity,Urine 1.017 (1.001-1.035); Squamous Epithelial Cell,Urine 1 /hpf (0-4); Urobilinogen,Urine <2.0 mg/dL (<2.0); WBC,Urine <1 /hpf (0-5)
[2023-10-05] MEDS: SODIUM CHLORIDE 0.9% 1,000 ML IV SCH (14:00)
[2023-10-05] MEDS ORDERED: ALBUTEROL NEBULIZED 2.5 MG/3 ML INHALATION PRN (15:02)
[2023-10-05] MEDS: PREGABALIN 75 MG CAP PO SCH (19:05)
[2023-10-05] MEDS: SYMBICORT 160-4.5 MCG INHALER INHALATION SCH (20:14)
[2023-10-06] MEDS: ENOXAPARIN 40 MG/0.4 ML SYRINGE SQ SCH (08:43)
[2023-10-06] MEDS: PANTOPRAZOLE 40 MG TABLET PO SCH (08:43)
[2023-10-06] MEDS: ATORVASTATIN 20 MG TAB PO SCH (08:43)
[2023-10-06 09:39] LABS: ALT 26 U/L (4-34); AST 73 U/L (14-36); African American GFR (CKD) >90 (>60 ml/min/1.73 sqM); Albumin 3.2 g/dL (3.5-5.0); Albumin/Globulin Ratio 1.2; Alkaline Phosphatase 76 U/L (38-126); Anion Gap 6 mmol/L; Blood Urea Nitrogen 6 mg/dL (7-17); Carbon Dioxide 30 mmol/L (22-30); Chloride 102 mmol/L (98-107); Globulin 2.6 g/dL; Glucose 85 mg/dL (74-99); Non-African American GFR(CKD) >90 (>60 ml/min/1.73 sqM); Potassium 3.4 mmol/L (3.5-5.1); Sodium 138 mmol/L (137-145); Total Bilirubin 1.4 mg/dL (0.2-1.3); Total Protein 5.8 g/dL (6.3-8.2)
[2023-10-06 10:50] LABS: Basophils # (A) 0.1 k/uL (0-0.2); Basophils % (A) 1 %; Eosinophils # (A) 0.2 k/uL (0-0.7); Eosinophils % (A) 2 %; HCT 37.1 % (34.0-46.0); HGB 11.9 gm/dL (11.4-16.0); Hypochromasia Slight; Lymphocytes # (A) 1.6 k/uL (1.0-4.8); Lymphocytes % (A) 16 %; MCH 35.7 pg (25.0-35.0); MCV 111.6 fL (80.0-100.0); Macrocytosis Marked; Mean Platelet Volume 13.4; Monocytes # (A) 0.9 k/uL (0-1.0); Monocytes % (A) 9 %; Neutrophils # (A) 7.3 k/uL (1.3-7.7); Neutrophils % (A) 72 %; Platelet Count 313 k/uL (150-450); RBC 3.33 m/uL (3.80-5.40); RDW 14.6 % (11.5-15.5)
[2023-10-06 11:57] VITALS: BMI 18.8
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
[2023-10-06] MEDS: POTASSIUM CHLORIDE ER 20 MEQ TAB.ER PO STA (13:29)
[2023-10-06] MEDS: ACETAMINOPHEN TAB 325 MG TAB PO PRN (17:51)
--- NOTE | 2023-10-06 18:51 | P.PN ---
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, alcoholic fatty liver disease, patient was seen in the office last week and she was debilitated generalized weakness has lost quite a bit of weight has not been seen in quite some times, was evaluated by CT scan of the abdomen and pelvis that showed evidence of head of the pancreas lesion suggestive of possible cystic neoplasm patient was generally weak, she was treated with oral antibiotic for a recent urinary tract infection, she presented herself to the emergency department at [facility] because she is not able to take care of herself at home, she has no help at home she is debilitated, she has higher risk of falling, patient was found to have significant hypomagnesemia, with elevated liver function test, likely related to alcoholic liver disease, patient was admitted to the hospital she was started on magnesium sulfate 2 g piggyback x 1, she will have an MRI of the pancreas with and without gadolinium, she will have CA 19-9, as well as carcinoembryonic antigen CEA, she will be seen in consultation by physical therapy and aids social worker for discharge planning. 10/05: Patient is laying down in bed in no apparent distress, she is feeling a bit better today, she denies any chest pain, she does complain of some mid abdominal pain, she denies any nausea or vomiting at this time, she complains of pain in her bones, patient is scheduled to go for MRI of the pancreas with and without luanne, her CA 19-9 is elevated slightly, we will monitor the patient very closely, patient potassium appears to be on the lower side, she will be given potassium replacement, her magnesium is back to normal, continue IV fluid resuscitation, continue physical therapy evaluation, continue with aids social worker consultation for discharge planning. REVIEW OF SYSTEMS: Constitutional: No documented fever, no chills, no night sweats. No weight change. positive for weakness, fatigue or lethargy. No daytime sleepiness. HEENT: No headache. No blurred vision or double vision, no loss of vision. No loss of Hearing, no ringing in the ears, no dizziness. No nasal drainage or congestion. No epistaxis. No sore throat. Lungs: No shortness of breath, no cough, no sputum production. No wheezing. Reports dyspnea with activity. Cardiovascular: No chest pain, no lower extremity edema. No palpitations. No paroxysmal nocturnal dyspnea. No orthopnea. No lightheadedness or dizziness. No syncopal episodes. Abdominal: Reports abdominal pain. mild nausea nausea,no vomiting. No diarrhea. No constipation. No bloody or tarry stools reports loss of appetite. Genitourinary: No dysuria, increased frequency, urgency. No urinary retention. Musculoskeletal: No myalgias. positive muscle weakness, positive for gait dysfunction, positive for frequent falls. positive for back pain. positive for neck pain. Integumentary: No wounds, no lesions. No rash or pruritus. No unusual bruising. No change in hair or nails. Neurologic: No aphasia. No facial droop. No change in mentation. No head injury. No headache. No paralysis. No paresthesia. Psychiatric: No depression. No anxiety. No mood swings. Endocrine: No abnormal blood sugars. No weight change. PHYSICAL EXAMINATION: General: 78-year-old female laying down in bed in no distress. HEENT: Head is atraumatic, normocephalic, pupils were equal round reactive to light and recommendation, extraocular muscle movement were intact, sclera nonicteric, conjunctivae were pale, mucous membranes of the mouth are somewhat dry. Neck: Supple, no JVP, normal carotid upstroke bilaterally, no lymphadenopathy. Chest: Decreased breath sounds at the bases, few rhonchi, no expiratory wheezes, no chest wall tenderness, no intercostal retractions. Heart: First heart sound is normal, second heart sound is normal there is systolic ejection murmur 2/6 located in the left sternal border. Abdomen: Soft, nontender, nondistended, positive bowel sounds. Extremities: There is no edema no calf tenderness DP +2 bilaterally. Neurologic examination: Patient is awake alert and oriented X 3 , cranial nerves II-12 appear grossly intact, muscle power was 3 out of 5 in bilateral lower extremities ASSESSMENT AND PLAN: 1. Hypomagnesemia. Status post replacement. 2. Head of the pancreas mass rule out cystic neoplasm CA 19 9 is slightly elevated, MRI of the pancreas with and without gadolinium, for further evaluation recommendation. 3. Chronic alcohol use and dependence. Patient counseled about abstinence from alcohol, patient will need to be seen in consultation by physical therapy as well as physical therapy as the patient does complain of severe weakness in both lower leg showing is due to alcoholic polyneuropathy and she will require subacute rehab. 4. Moderate persistent asthma. Start the patient on albuterol 2.5 mg nebuliz ation every 4 hours as needed, start the patient on Symbicort 160/4.5 mcg 2 puffs inhalation twice every day. 5. Mixed hyperlipidemia. restart the patient on rosuvastatin 20 mg orally once every day. 6. Hypertension and hypertensive cardiovascular disease. Patient is currently not on any medication monitor her blood pressure very closely. Patient has lost a lot of weight and her blood pressure is normal. 7. Spondylosis of the cervical spine without myelopathy. Stable at this time. Patient was started on Lyrica 75 mg at bedtime. 8. Alcoholic fatty liver disease. Abstinence from alcohol monitor the patient CMP. 10. Medical debility with significant weight loss physical therapy evaluation for subacute rehabilitation. 11. GI prophylaxis. Continue Protonix 40 mg orally once every day. 12. DVT prophylaxis. Lovenox 40 mg subcutaneous every 24 hours. 13. Disposition hopefully subacute rehabilitation. 14. Patient is full code. Objective - Vital Signs Vital signs: Vital Signs Temp 98.3 F 10/06/23 07:53 Pulse 75 10/06/23 07:53 Resp 16 10/06/23 07:53 BP 131/73 10/06/23 07:53 Pulse Ox 97 10/06/23 07:53 FiO2 Intake & Output 10/05/23 10/06/23 10/06/23 18:59 06:59 18:59 Intake Total 450 Output Total 575 Balance 450 -575 Weight 51.256 kg 51.256 kg Intake: IV 450 Sodium Chloride 0.9% 1, 450 000 ml @ 75 mls/hr IV . [id number] [facility] Rx#:[id number] Output: Urine 575 Other: Voiding Method Diaper Diaper Diaper External Catheter External Catheter # Voids 1 - Labs CBC & Chem 7: 10/06/23 07:50 10/06/23 07:50 Labs: Abnormal Lab Results - Last 24 Hours (Table) 10/05/23 10/06/23 10/06/23 Range/Units 09:30 07:50 07:50 RBC 3.33 L (3.80-5.40) m/uL MCV 111.6 H (80.0-100.0) fL MCH 35.7 H (25.0-35.0) pg Macrocytosis Marked A Potassium 3.4 L (3.5-5.1) mmol/L BUN 6 L (7-17) mg/dL Creatinine 0.42 L (0.52-1.04) mg/dL Calcium 8.0 L (8.4-10.2) mg/dL Total Bilirubin 1.4 H (0.2-1.3) mg/dL AST 73 H (14-36) U/L Total Protein 5.8 L (6.3-8.2) g/dL Albumin 3.2 L (3.5-5.0) g/dL CA 19-9 Antigen 43.6 H (0.0-34.9) U/mL
--- NOTE | 2023-10-07 11:01 | CDI ---
Documentation Clarification Form Date: 10/07/2023 From: Kassi Szymanski Phone: [phone] Admit Date: 10/05/2023 11:20:00 AM Patient Name: Tika Villeda Visit Number: [id number] Discharge Date: ATTENTION: The Clinical Documentation Specialists (CDI) and [facility] Coding Staff appreciate your assistance in clarifying documentation. Please respond to the clarification below the line at the bottom and electronically sign. The CDI & [facility] Coding staff will review the response and follow-up if needed. Please note: Queries are made part of the Legal Health Record. If you have any questions, please contact the author of this message via ITS. Dr. Valentine Leroy: Patient has a documented BMI of 18.8 on 10/05. Additional clarification is requested. History/Risk Factors: 78-year-old female with a history of asthma, HTN, chronic alcohol use and dependence, Alcoholic fatty liver disease, recurrent alcoholic pancreatitis who presents with hypomagnesemia Clinical Indicators: 10/05 Patients weight is 51.256kg Patients height is 5ft 5in Calculated BMI is 18.8 10/05 Dietary Assessment, BMI classification: "Underweight" Treatments: Healthy Heart diet Ensure Max at each meal Please clarify, is there is an additional diagnosis that is clinically appropriate for this patient? [ x ] Underweight [ ] No additional diagnosis/not clinically significant [ ] Other, please specify [ ] Unable to determine MTDD
[2023-10-07 11:16] LABS: Basophils # (A) 0.12 X 10*3/uL (0.00-0.10); Eosinophils # (A) 0.29 X 10*3/uL (0.04-0.35); Eosinophils % (A) 2.5 %; HCT 36.5 % (37.2-46.3); HGB 12.1 g/dL (12.0-15.0); Lymphocytes # (A) 1.77 X 10*3/uL (0.90-5.00); MCH 35.9 pg (27.0-32.0); MCHC 33.2 g/dL (32.0-37.0); MCV 108.3 FL (80.0-97.0); Macrocytosis (M) 2+; Mean Platelet Volume 13.6 FL (9.5-12.2); Monocytes # (A) 0.83 X 10*3/uL (0.20-1.00); NRBC Per 100 WBC 0.06 X 10*3/uL (0.00-0.01); Neutrophils # (A) 8.71 X 10*3/uL (1.80-7.70); Neutrophils % (A) 73.7 %; Pappenheimer Bodies 2+; Platelet Count 256 X 10*3/uL (140-440); RBC 3.37 X 10*6/uL (4.10-5.20); RDW 14.9 % (11.5-14.5); WBC 11.81 X 10*3/uL (4.50-10.00)
[2023-10-07 11:49] LABS: BUN/Creat Ratio 6.17 Ratio (12.00-20.00); Blood Urea Nitrogen 3.7 mg/dL (9.0-27.0); Glucose 100 mg/dL (70-110)
[2023-10-07 11:50] LABS: ALT 28 U/L (8-44); AST 52 U/L (13-35); Albumin 3.7 g/dL (3.8-4.9); Albumin/Globulin Ratio 1.61 Ratio (1.60-3.17); Alkaline Phosphatase 90 U/L (41-126); Carbon Dioxide 23.2 mmol/L (21.6-31.8); Chloride 108 mmol/L (96-109); Globulin 2.3 g/dL (1.6-3.3); Potassium 3.8 mmol/L (3.5-5.5); Sodium 145 mmol/L (135-145); Total Bilirubin 0.8 mg/dL (0.3-1.2)
--- NOTE | 2023-10-07 13:44 | MR ---
EXAMINATION TYPE: MR pancreas wo/w con DATE OF EXAM: 10/07/2023 1:05 PM CLINICAL INDICATION:Female, 78 years old with history of Head of pancreas mass; PHH, Weight loss, wea kness. COMPARISON: CT scan abdomen from CT 10/01/2023.. TECHNIQUE: Multiplanar multi-sequence imaging was performed without contrast. Post contrast imaging was performed. Post IV contrast subtraction images were also submitted for review. IV Contrast: 5 cc Gadavist FINDINGS: LOWER CHEST: Trace bilateral pleural effusions. ABDOMEN Liver: No evidence for cirrhosis. Signal dropout on chemical shift out of phase imaging. Scattered si mple appearing high T2 signal cysts. Gallbladder and Bile ducts: No evidence for ductal dilation, or biliary stricture or evidence of chol edocholithiasis. The gallbladder is within normal limits. Pancreas: T2 signal cystic lesion measuring 13 x 10 mm in the pancreatic head anteriorly no abnormal postcontrast enhancement. May be acute dilated side branch No ductal dilation. No evidence for solid mass. Spleen: Normal for size. Adrenal glands: Unremarkable. Kidneys: No evidence for obstructive uropathy. No suspicious renal masses. Stomach and Bowel: No evidence for bowel wall thickening or evidence for obstruction. Retroperitoneum/Peritoneum: No evidence of pneumoperitoneum or free fluid. Vasculature: No aortic aneurysm. Musculoskeletal: The osseous structures appear intact. Lymph Nodes: No gross evidence for lymphadenopathy. Abdominal wall: Unremarkable. IMPRESSION: 1. Pancreatic head cystic lesion possibly representing sequela of prior pancreatitis versus side bra nch intraductal mucinous neoplasm versus other cystic neoplasms. Attention on follow-up imaging in on e year with MRI MRCP with contrast to ensure stability. No suspicious solid pancreatic mass. No abnor mal postcontrast enhancement or mass identified in the [id number]. No lymphadenopathy identified. 2. Hepatic steatosis. 3. Trace bilateral pleural effusions.
--- NOTE | 2023-10-07 19:02 | P.PN ---
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, alcoholic fatty liver disease, patient was seen in the office last week and she was debilitated generalized weakness has lost quite a bit of weight has not been seen in quite some times, was evaluated by CT scan of the abdomen and pelvis that showed evidence of head of the pancreas lesion suggestive of possible cystic neoplasm patient was generally weak, she was treated with oral antibiotic for a recent urinary tract infection, she presented herself to the emergency department at [facility] because she is not able to take care of herself at home, she has no help at home she is debilitated, she has higher risk of falling, patient was found to have significant hypomagnesemia, with elevated liver function test, likely related to alcoholic liver disease, patient was admitted to the hospital she was started on magnesium sulfate 2 g piggyback x 1, she will have an MRI of the pancreas with and without gadolinium, she will have CA 19-9, as well as carcinoembryonic antigen CEA, she will be seen in consultation by physical therapy and rn social work for discharge planning. 10/05: Patient is laying down in bed in no apparent distress, she is feeling a bit better today, she denies any chest pain, she does complain of some mid abdominal pain, she denies any nausea or vomiting at this time, she complains of pain in her bones, patient is scheduled to go for MRI of the pancreas with and without luanne, her CA 19-9 is elevated slightly, we will monitor the patient very closely, patient potassium appears to be on the lower side, she will be given potassium replacement, her magnesium is back to normal, continue IV fluid resuscitation, continue physical therapy evaluation, continue with rn social work consultation for discharge planning. 10/06: Patient is laying down in bed in no apparent distress, she was using a walker for ambulation, however the patient will require a wheelchair to carry on the activities of daily living as the patient is not able to do so on her own at home, otherwise this will increase her risk of falling, patient was seen in consultation by physical therapy and Occupational Therapy, patient underwent MRI of the pancreas at this time, and that showed evidence of cystic lesion suggestive of sidebranch cystic neoplasm versus sequela of pancreatitis, it was recommended to repeat the MRI of the pancreas as well as MRCP with and without luanne in a year from now to ensure stability, also it shows evidence of hepatic steatosis as well as small bilateral pleural effusion, patient will be kept in the hospital for another 24 hours, she will be discharged home tomorrow morning as the patient will get a wheelchair to carry on her activities of daily living. REVIEW OF SYSTEMS: Constitutional: No documented fever, no chills, no night sweats. No weight change. positive for weakness, fatigue or lethargy. No daytime sleepiness. HEENT: No headache. No blurred vision or double vision, no loss of vision. No loss of Hearing, no ringing in the ears, no dizziness. No nasal drainage or congestion. No epistaxis. No sore throat. Lungs: No shortness of breath, no cough, no sputum production. No wheezing. Reports dyspnea with activity. Cardiovascular: No chest pain, no lower extremity edema. No palpitations. No paroxysmal nocturnal dyspnea. No orthopnea. No lightheadedness or dizziness. No syncopal episodes. Abdominal: Reports abdominal pain. mild nausea nausea,no vomiting. No diarrhea. No constipation. No bloody or tarry stools reports loss of appetite. Genitourinary: No dysuria, increased frequency, urgency. No urinary retention. Musculoskeletal: No myalgias. positive muscle weakness, positive for gait dysfunction, positive for frequent falls. positive for back pain. positive for neck pain. Integumentary: No wounds, no lesions. No rash or pruritus. No unusual bruising. No change in hair or nails. Neurologic: No aphasia. No facial droop. No change in mentation. No head injury. No headache. No paralysis. No paresthesia. Psychiatric: No depression. No anxiety. No mood swings. Endocrine: No abnormal blood sugars. No weight change. PHYSICAL EXAMINATION: General: 78-year-old female laying down in bed in no distress. HEENT: Head is atraumatic, normocephalic, pupils were equal round reactive to light and recommendation, extraocular muscle movement were intact, sclera nonicteric, conjunctivae were pale, mucous membranes of the mouth are somewhat dry. Neck: Supple, no JVP, normal carotid upstroke bilaterally, no lymphadenopathy. Chest: Decreased breath sounds at the bases, few rhonchi, no expiratory wheezes, no chest wall tenderness, no intercostal retractions. Heart: First heart sound is normal, second heart sound is normal there is systolic ejection murmur 2/6 located in the left sternal border. Abdomen: Soft, nontender, nondistended, positive bowel sounds. Extremities: There is no edema no calf tenderness DP +2 bilaterally. Neurologic examination: Patient is awake alert and oriented X 3 , cranial nerves II-12 appear grossly intact, muscle power was 3 out of 5 in bilateral lower extremities ASSESSMENT AND PLAN: 1. Hypomagnesemia. Status post replacement. 2. 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 Patient may be referred to a gastroenterology for EUS and possible aspiration to obtain cytology since her CA 19-9 is slightly elevated. 3. Chronic alcohol use and dependence. Patient counseled about abstinence from alcohol, patient will need to be seen in consultation by physical therapy as wel l as physical therapy as the patient does complain of severe weakness in both lower leg showing is due to alcoholic polyneuropathy and she will require subacute rehab. 4. Moderate persistent asthma. Start the patient on albuterol 2.5 mg nebulization every 4 hours as needed, start the patient on Symbicort 160/4.5 mcg 2 puffs inhalation twice every day. 5. Mixed hyperlipidemia. restart the patient on rosuvastatin 20 mg orally once every day. 6. Hypertension and hypertensive cardiovascular disease. Patient is currently not on any medication monitor her blood pressure very closely. Patient has lost a lot of weight and her blood pressure is normal. 7. Spondylosis of the cervical spine without myelopathy. Stable at this time. Patient was started on Lyrica 75 mg at bedtime. 8. Alcoholic fatty liver disease. Abstinence from alcohol monitor the patient CMP. 10. Medical debility with significant weight loss physical therapy evaluation for subacute rehabilitation. 11. GI prophylaxis. Continue Protonix 40 mg orally once every day. 12. DVT prophylaxis. Lovenox 40 mg subcutaneous every 24 hours. 13. Medical debility. We will obtain a wheelchair as the patient will require wheelchair to perform her activities of daily living, we will monitor the patient very closely at this point in time. She will be discharged home tomorrow morning. Objective - Vital Signs Vital signs: Vital Signs Temp 98.4 F 10/07/23 13:36 Pulse 90 10/07/23 13:36 Resp 19 10/07/23 13:36 BP 130/76 10/07/23 13:36 Pulse Ox 98 10/07/23 13:36 FiO2 Intake & Output 10/06/23 10/07/23 10/07/23 18:59 06:59 18:59 Intake Total 1800 1560 Output Total 400 750 Balance 1400 -750 1560 Weight 51.256 kg Intake: IV 900 Sodium Chloride 0.9% 1, 900 000 ml @ 75 mls/hr IV . [id number] [facility] Rx#:[id number] Intake, IV Titration 900 Amount Sodium Chloride 0.9% 1, 900 000 ml @ 75 mls/hr IV . [id number] [facility] Rx#:[id number] Oral 900 660 Output: Urine 400 750 Other: Voiding Method Diaper Diaper Bedside Commode External Catheter External Catheter Diaper Incontinent # Voids 1 2 - Labs CBC & Chem 7: 10/07/23 07:06 10/07/23 07:06 Labs: Abnormal Lab Results - Last 24 Hours (Table) 10/07/23 10/07/23 Range/Units 07:06 07:06 WBC 11.81 H (4.50-10.00) X 10*3/uL RBC 3.37 L (4.10-5.20) X 10*6/uL Hct 36.5 L (37.2-46.3) % MCV 108.3 H (80.0-97.0) FL MCH 35.9 H (27.0-32.0) pg RDW 14.9 H (11.5-14.5) % MPV 13.6 H (9.5-12.2) FL Immature Gran # 0.09 H (0.00-0.04) X 10*3/uL Neutrophils # 8.71 H (1.80-7.70) X 10*3/uL Basophils # 0.12 H (0.00-0.10) X 10*3/uL NRBC/100 WBC Diff 0.06 H (0.00-0.01) X 10*3/uL Macrocytosis (manual) 2+ A Pappenheimer Bodies 2+ A Anion Gap 13.80 H (4.00-12.00) mmol/L BUN 3.7 L (9.0-27.0) mg/dL BUN/Creatinine Ratio 6.17 L (12.00-20.00) Ratio Calcium 8.0 L (8.7-10.3) mg/dL AST 52 H (13-35) U/L Total Protein 6.0 L (6.2-8.2) g/dL Albumin 3.7 L (3.8-4.9) g/dL
[2023-10-08 07:51] VITALS: PULSE 80
[2023-10-08 12:33] VITALS: BP 115/73; RESP 16; TEMP 98.4
== END 2023-10-08 16:50 | disposition home health service (06) | DRG 641 ==
LOC: EC 08:32 → 4SSUR 11:20 → 5NMEDONC 16:35
PROVIDERS: ADMIT Internal Medicine; ATTEND Internal Medicine
DX: E83.42 Hypomagnesemia (principal); Z68.1 Body mass index [BMI] 19.9 or less, adult; K86.2 Cyst of pancreas; F10.20 Alcohol dependence, uncomplicated; G62.1 Alcoholic polyneuropathy; I10 Essential (primary) hypertension; R53.1 Weakness; J45.40 Moderate persistent asthma, uncomplicated; K70.0 Alcoholic fatty liver; M47.812 Spondylosis without myelopathy or radiculopathy, cervical region; R63.6 Underweight; E78.2 Mixed hyperlipidemia; Z79.51 Long term (current) use of inhaled steroids; Z79.82 Long term (current) use of aspirin; Z79.899 Other long term (current) drug therapy; Z90.81 Acquired absence of spleen; Z88.5 Allergy status to narcotic agent; Z71.41 Alcohol abuse counseling and surveillance of alcoholic; Z87.81 Personal history of (healed) traumatic fracture; Z82.49 Family history of ischemic heart disease and other diseases of the circulatory system; Z98.42 Cataract extraction status, left eye; Z98.41 Cataract extraction status, right eye; Z87.19 Personal history of other diseases of the digestive system
CPT/HCPCS: 36415; 74183; 80053; 81001; 82378; 82550; 83735; 84132; 85025; 86301; 87636; 93005; 94640; 96365; 96366; 99285

== ENCOUNTER 2023-10-17 11:47 | Inpatient (IN) | payer MEDICARE, OTHER ==
[2023-10-17] MEDS: ACETAMINOPHEN TAB 500 MG TAB PO STA (12:54)
[2023-10-17] MEDS: IBUPROFEN 600 MG TAB PO STA (12:54)
[2023-10-17] MEDS: SODIUM CHLORIDE 0.9% 500 ML 500 ML IV SCH (12:54)
[2023-10-17 12:56] LABS: Basophils # (A) 0.1 k/uL (0-0.2); Basophils % (A) 0 %; Eosinophils # (A) 0.3 k/uL (0-0.7); Eosinophils % (A) 1 %; HCT 47.7 % (34.0-46.0); Hypochromasia Marked; Lymphocytes # (A) 0.8 k/uL (1.0-4.8); Lymphocytes % (A) 3 %; MCH 35.6 pg (25.0-35.0); MCV 111.1 fL (80.0-100.0); Macrocytosis Marked; Monocytes # (A) 0.7 k/uL (0-1.0); Monocytes % (A) 3 %; Neutrophils # (A) 20.8 k/uL (1.3-7.7); Neutrophils % (A) 91 %; Platelet Count 311 k/uL (150-450); RBC 4.29 m/uL (3.80-5.40); RDW 14.8 % (11.5-15.5); WBC 22.8 k/uL (3.8-10.6)
[2023-10-17 13:09] LABS: INR 0.9 (<1.2); Partial Thromboplastin Time 23.9 sec (22.0-30.0); Prothrombin Time 10.3 sec (10.0-12.5)
[2023-10-17 13:11] LABS: ALT 21 U/L (4-34); AST 55 U/L (14-36); African American GFR (CKD) >90 (>60 ml/min/1.73 sqM); Albumin 4.6 g/dL (3.5-5.0); Alkaline Phosphatase 75 U/L (38-126); Anion Gap 10 mmol/L; Blood Urea Nitrogen 11 mg/dL (7-17); Calcium 10.1 mg/dL (8.4-10.2); Carbon Dioxide 24 mmol/L (22-30); Chloride 106 mmol/L (98-107); Glucose 123 mg/dL (74-99); Non-African American GFR(CKD) >90 (>60 ml/min/1.73 sqM); Potassium 4.1 mmol/L (3.5-5.1); Sodium 140 mmol/L (137-145); Total Bilirubin 1.5 mg/dL (0.2-1.3); Total Protein 7.8 g/dL (6.3-8.2)
[2023-10-17 13:19] LABS: Amorphous Sediment,Urine Moderate /hpf; Appearance,Urine Turbid (Clear); Bacteria,Urine Occasional /hpf; Bilirubin,Urine Negative (Negative); Blood,Urine Small (Negative); Color,Urine Light Brown; Glucose,Urine (UA) Negative (Negative); Ketones,Urine Trace (Negative); Leukocyte Esterase,Urine Negative (Negative); Mucus,Urine Moderate /hpf; Nitrite,Urine Negative (Negative); Protein,Urine 1+ (Negative); Urobilinogen,Urine <2.0 mg/dL (<2.0); WBC,Urine 4 /hpf (0-5)
[2023-10-17 13:21] LABS: HGB 15.3 gm/dL (11.4-16.0)
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
--- NOTE | 2023-10-17 13:37 | XR ---
EXAMINATION TYPE: XR chest 2V DATE OF EXAM: 10/17/2023 COMPARISON: 09/17/2022 HISTORY: 78-year-old female with fever TECHNIQUE: AP and lateral views FINDINGS: Heart per limits of normal in size. Aorta and pulmonary vasculature are within normal. Mild inflation . Mild interstitial prominence without consolidation. Trace effusion suggested on the lateral view. IMPRESSION: Correlate for underlying COPD. There appear to be trace effusions on lateral view. No focal infiltrat e seen.
[2023-10-17 15:25] LABS: Amphetamine Screen,Urine Not Detected (NotDetected); Benzodiazepines Screen,Urine Not Detected (NotDetected); Cocaine Screen,Urine Not Detected (NotDetected); Opiate Screen,Urine Not Detected (NotDetected); Phencyclidine Screen,Urine Not Detected (NotDetected); Tricyclic Antidepressant,Urine Not Detected (NotDetected); Urn Cannabinoid Scrn Detected (NotDetected)
[2023-10-17 15:26] LABS: Barbiturate Screen,Urine Not Detected (NotDetected); Methadone Screen, Urine Not Detected (NotDetected); Oxycodone Screen, Urine Not Detected (NotDetected)
[2023-10-17] MEDS: SODIUM CHLORIDE 0.9% 1,000 ML IV ONE (18:17)
[2023-10-17] MEDS: PIPERACILLIN-TAZOBACTAM 3.375 GM in SODIUM CHLORIDE 0.9% 100 ML IVPB STA (18:18)
[2023-10-17] MEDS ORDERED: ALBUTEROL NEBULIZED 2.5 MG/3 ML INHALATION PRN (23:25)
[2023-10-17] MEDS: PREGABALIN 75 MG CAP PO SCH (23:40)
[2023-10-17] MEDS: PIPERACILLIN-TAZOBACTAM 3.375 GM in SODIUM CHLORIDE 0.9% 100 ML IVPB SCH (23:55)
[2023-10-18] MEDS: SYMBICORT 160-4.5 MCG INHALER INHALATION SCH (08:36)
[2023-10-18] MEDS: ATORVASTATIN 20 MG TAB PO SCH (09:10)
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
[2023-10-18 12:20] LABS: Basophils % (A) 0 %; Eosinophils # (A) 0.8 k/uL (0-0.7); Eosinophils % (A) 6 %; HCT 36.5 % (34.0-46.0); Hypochromasia Marked; Lymphocytes # (A) 1.2 k/uL (1.0-4.8); Lymphocytes % (A) 10 %; MCH 35.1 pg (25.0-35.0); MCHC 31.7 g/dL (31.0-37.0); MCV 110.7 fL (80.0-100.0); Macrocytosis Marked; Mean Platelet Volume 11.9; Monocytes # (A) 0.5 k/uL (0-1.0); Monocytes % (A) 4 %; Neutrophils # (A) 9.8 k/uL (1.3-7.7); Neutrophils % (A) 78 %; Platelet Count 264 k/uL (150-450); RDW 14.8 % (11.5-15.5); WBC 12.5 k/uL (3.8-10.6)
[2023-10-18 12:23] LABS: HGB 11.6 gm/dL (11.4-16.0)
[2023-10-18 12:27] LABS: ALT 17 U/L (4-34); AST 32 U/L (14-36); African American GFR (CKD) >90 (>60 ml/min/1.73 sqM); Albumin 2.8 g/dL (3.5-5.0); Albumin/Globulin Ratio 1.2; Alkaline Phosphatase 49 U/L (38-126); Anion Gap 9 mmol/L; Blood Urea Nitrogen 16 mg/dL (7-17); Calcium 8.8 mg/dL (8.4-10.2); Carbon Dioxide 22 mmol/L (22-30); Chloride 113 mmol/L (98-107); Globulin 2.4 g/dL; Glucose 121 mg/dL (74-99); Non-African American GFR(CKD) >90 (>60 ml/min/1.73 sqM); Sodium 144 mmol/L (137-145); Total Bilirubin 0.7 mg/dL (0.2-1.3); Total Protein 5.2 g/dL (6.3-8.2)
[2023-10-18] MEDS: IOPAMIDOL CONTRAST (ORAL USE) VIAL PO PRN (12:33)
[2023-10-18 12:38] LABS: Potassium 2.7 mmol/L (3.5-5.1)
[2023-10-18 12:39] VITALS: BMI 18.8
--- NOTE | 2023-10-18 12:49 | P.PN ---
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, alcoholic fatty liver disease, patient was recently hospitalized at [facility] between 10/05/2023 till 10/08/2023 with medical debility due to severe hypomagnesemia and alcohol use, she was found to have a mass in the pancreas ended up going for an MRI of the pancreas that showed evidence of possible of side branch intra ductal neoplasm versus cystic neoplasm it was recommended to repeat MRCP/MRI in a year from now, patient was discharged home and she had the visiting nurse to come and follow-up with the patient, she had a wheelchair along with a walker, she was advised to abstain from alcohol, visiting nurse called me yesterday stated the patient is not answering the door, apparently patient was feeling feverish she was confused a bit at that time, and her friend called EMS and transported the p atient to the emergency department at [facility], patient was to have an acute febrile illness with a temperature of 103.2, patient had a chest x-ray did not show evidence of acute abnormalities, her urinalysis was negative, she did have a leukocytosis, she was started on IV antibiotic in the form of Zosyn 3.375 g piggyback every 8 hours, patient did not have any source of infection, blood cultures were obtained, infectious disease consultation was obtained, patient stated that she had a bit of loose stool, stool will be checked for C. difficile as well since the patient was on oral antibiotic in the last hospital admission. 10/17: Patient is feeling better today, she is more awake and more alert, she denies any chest pain, shortness of breath, she has no abdominal pain, she did not have any diarrhea today, stool was never collected since the patient did not have any diarrhea, blood culture still pending at the time of dictation, infectious disease consultation still pending, continue IV antibiotic for now, continue to monitor the patient for another 24 hours, patient is scheduled for repeated CT scan of the abdomen pelvis with oral and IV contrast REVIEW OF SYSTEMS: Constitutional: positive for fever, no chills, no night sweats. Positive for weight change. positive for weakness, fatigue or lethargy. Positive for daytime sleepiness. HEENT: No headache. No blurred vision or double vision, no loss of vision. No loss of Hearing, no ringing in the ears, no dizziness. No nasal drainage or congestion. No epistaxis. No sore throat. Lungs: No shortness of breath, no cough, no sputum production. No wheezing. Reports dyspnea with activity. Cardiovascular: No chest pain, no lower extremity edema. No palpitations. No paroxysmal nocturnal dyspnea. No orthopnea. No lightheadedness or dizziness. No syncopal episodes. Abdominal: Reports abdominal pain. mild nausea nausea,no vomiting. Positive for diarrhea. No constipation. No bloody or tarry stools reports loss of appetite. Genitourinary: No dysuria, increased frequency, urgency. No urinary retention. Musculoskeletal: No myalgias. positive muscle weakness, positive for gait dysfunction, positive for frequent falls. positive for back pain. positive for neck pain. Integumentary: No wounds, no lesions. No rash or pruritus. No unusual bruising. No change in hair or nails. Neurologic: No aphasia. No facial droop. Positive for change in mentation. No head injury. No headache. No paralysis. No paresthesia. Psychiatric: No depression. No anxiety. No mood swings. Endocrine: No abnormal blood sugars. No weight change. PHYSICAL EXAMINATION: General: 78-year-old female laying down in bed in no distress appears a bit confused HEENT: Head is atraumatic, normocephalic, pupils were equal round reactive to light and recommendation, extraocular muscle movement were intact, sclera nonicteric, conjunctivae were pale, mucous membranes of the mouth are somewhat dry. Neck: Supple, no JVP, normal carotid upstroke bilaterally, no lymphadenopathy. No neck rigidity Chest: Decreased breath sounds at the bases, few rhonchi, no expiratory wheezes, no chest wall tenderness, no intercostal retractions. Heart: First heart sound is normal, second heart sound is normal there is s ystolic ejection murmur 2/6 located in the left sternal border. Abdomen: Soft, nontender, nondistended, positive bowel sounds. Extremities: There is no edema no calf tenderness DP +2 bilaterally. Neurologic examination: Patient is awake alert and oriented X 3 , cranial nerves II-12 appear grossly intact, muscle power was 3 out of 5 in bilateral lower extremities ASSESSMENT AND PLAN: 1. acute febrile illness with altered level of consciousness patient does not appear to have acute meningitis at this time on physical examination, blood cultures are still pending, patient never had a stool specimen she has no diarrhea, continue the patient on Zosyn 3.375 g IV piggyback every 8 hours, infe ctious disease consultation appreciated , patient just had an MRI of the abdomen along with a CT scan of the abdomen pelvis not too long ago, CT scan of the abdomen and pelvis was ordered by the ID. 2. 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 Patient just had an MRI of the pancreas it was recommended to repeat MRI/MRCP in 1 year. 3. Chronic alcohol use and dependence. Patient counseled about abstinence from alcohol, patient will need to be seen in consultation by physical therapy as well as physical therapy as the patient does complain of severe weakness in both lower leg showing is due to alcoholic polyneuropathy and she may require subacute rehabilitation 4. Moderate persistent asthma. Start the patient on albuterol 2.5 mg ne bulization every 4 hours as needed, start the patient on Symbicort 160/4.5 mcg 2 puffs inhalation twice every day. 5. Mixed hyperlipidemia. restart the patient on rosuvastatin 20 mg orally once every day. Monitor lipid panel, keep LDL 55-70 6. Hypertension and hypertensive cardiovascular disease. Patient is currently not on any medication monitor her blood pressure very closely. Patient has lost a lot of weight and her blood pressure is normal. 7. Spondylosis of the cervical spine without myelopathy. Stable at this time. 8. Alcoholic fatty liver disease. Abstinence from alcohol monitor the patient CMP. 10. Medical debility with significant weight loss physical therapy evaluation for possible subacute rehabilitation. 11. GI prophylaxis. Continue Protonix 40 mg orally once every day. 12. DVT prophylaxis. Lovenox 40 mg subcutaneous every 24 hours. 13. Hypokalemia we will replace recheck BMP and magnesium at 6:00 PM. 14. Most likely home with home health care on Friday Objective - Vital Signs Vital signs: Vital Signs Temp 97.6 F 10/18/23 07:25 Pulse 79 10/18/23 07:25 Resp 14 10/18/23 07:25 BP 119/72 10/18/23 07:25 Pulse Ox 97 10/18/23 07:25 FiO2 Intake & Output 10/17/23 10/18/23 10/18/23 18:59 06:59 18:59 Intake Total 590 590 Balance 590 590 Weight 54.431 kg 51.363 kg Intake: Oral 590 590 Other: # Voids 2 - Labs CBC & Chem 7: 10/18/23 11:45 10/18/23 11:45 Labs: Abnormal Lab Results - Last 24 Hours (Table) 10/17/23 10/17/23 10/17/23 Range/Units 12:29 12:29 12:29 WBC 22.8 H (3.8-10.6) k/uL Hct 47.7 H (34.0-46.0) % MCV 111.1 H (80.0-100.0) fL MCH 35.6 H (25.0-35.0) pg Neutrophils # 20.8 H (1.3-7.7) k/uL Lymphocytes # 0.8 L (1.0-4.8) k/uL Macrocytosis Marked A Creatinine 0.48 L (0.52-1.04) mg/dL Glucose 123 H (74-99) mg/dL Plasma Lactic Acid Farzad (0.7-2.0) mmol/L Total Bilirubin 1.5 H (0.2-1.3) mg/dL AST 55 H (14-36) U/L Urine Appearance Turbid H (Clear) Urine Protein 1+ H (Negative) Urine Ketones Trace H (Negative) Urine Blood Small H (Negative) Amorphous Sediment Moderate H (None) /hpf Urine Bacteria Occasional H (None) /hpf Urine Mucus Moderate H (None) /hpf U Marijuana (THC) Screen (NotDetected) 10/17/23 10/17/23 Range/Units 12:29 12:29 WBC (3.8-10.6) k/uL Hct (34.0-46.0) % MCV (80.0-100.0) fL MCH (25.0-35.0) pg Neutrophils # (1.3-7.7) k/uL Lymphocytes # (1.0-4.8) k/uL Macrocytosis Creatinine (0.52-1.04) mg/dL Glucose (74-99) mg/dL Plasma Lactic Acid Farzad 2.2 H* (0.7-2.0) mmol/L Total Bilirubin (0.2-1.3) mg/dL AST (14-36) U/L Urine Appearance (Clear) Urine Protein (Negative) Urine Ketones (Negative) Urine Blood (Negative) Amorphous Sediment (None) /hpf Urine Bacteria (None) /hpf Urine Mucus (None) /hpf U Marijuana (THC) Screen Detected H (NotDetected)
[2023-10-18] MEDS: POTASSIUM CHLORIDE ER 20 MEQ TAB.ER PO SCH (12:57)
[2023-10-18] MEDS: POTASSIUM CHLORIDE 10 MEQ in WATER FOR INJECTION 1 100ML.BAG IVPB SCH (12:57)
--- NOTE | 2023-10-18 14:33 | CT ---
EXAMINATION TYPE: CT abdomen pelvis w con CT DLP: 793 mGycm, Automated exposure control for dose reduction was used. DATE OF EXAM: 10/18/2023 2:21 PM COMPARISON: CT abdomen pelvis most recent from 10/01/2023, 10/07/2023 CLINICAL INDICATION:Female, 78 years old with history of fever , pancreatitis, abscess; fever, pancre atitis, r/o abscess TECHNIQUE: Axial CT abdomen pelvis w con;Sagittal and coronal reformats were created on a separate w orkstation. Contrast used:100 mL of Isovue 300 with IV Contrast, (none if empty) Oral contrast used: with Oral Contrast (none if empty) FINDINGS: LOWER CHEST: Trace bilateral pleural effusions left greater than right. ABDOMEN LIVER: Diffusely hypoattenuating parenchyma. GALLBLADDER AND BILE DUCTS: Unremarkable. PANCREAS: No evidence for pancreatic mass or significant edema around the pancreas. Similar pancreati c head cystic lesion. 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 ADRENAL GLANDS: Unremarkable. KIDNEYS AND URETERS: No evidence of hydronephrosis or renal calculus. The ureters are unremarkable. PELVIS BLADDER: Unremarkable REPRODUCTIVE: Unremarkable. ABDOMEN & PELVIS STOMACH AND BOWEL: No evidence of bowel obstruction. PERITONEUM/RETROPERITONEUM: No evidence of pneumoperitoneum or free fluid. VASCULATURE: No evidence of aortic aneurysm. MUSCULOSKELETAL: No acute osseous abnormalities LYMPH NODES: No gross evidence for lymphadenopathy. SOFT TISSUE/ABDOMINAL WALL: Unremarkable IMPRESSION: 1. No evidence for intra-abdominal organizing fluid collection. 2. No significant fat stranding changes around the pancreas to suggest pancreatitis by imaging. 3. Hepatic steatosis. 4. Trace bilateral pleural effusions left greater than right.
[2023-10-18 17:58] LABS: African American GFR (CKD) >90 (>60 ml/min/1.73 sqM); Anion Gap 9 mmol/L; Blood Urea Nitrogen 16 mg/dL (7-17); Calcium 8.7 mg/dL (8.4-10.2); Carbon Dioxide 19 mmol/L (22-30); Chloride 110 mmol/L (98-107); Glucose 96 mg/dL (74-99); Magnesium 1.8 mg/dL (1.6-2.3); Non-African American GFR(CKD) >90 (>60 ml/min/1.73 sqM); Potassium 4.4 mmol/L (3.5-5.1); Sodium 138 mmol/L (137-145)
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
[2023-10-19] MEDS: ENOXAPARIN 40 MG/0.4 ML SYRINGE SQ SCH (09:08)
--- NOTE | 2023-10-19 09:38 | P.PN ---
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, alcoholic fatty liver disease, patient was recently hospitalized at [facility] between 10/05/2023 till 10/08/2023 with medical debility due to severe hypomagnesemia and alcohol use, she was found to have a mass in the pancreas ended up going for an MRI of the pancreas that showed evidence of possible of side branch intra ductal neoplasm versus cystic neoplasm it was recommended to repeat MRCP/MRI in a year from now, patient was discharged home and she had the visiting nurse to come and follow-up with the patient, she had a wheelchair along with a walker, she was advised to abstain from alcohol, visiting nurse called me yesterday stated the patient is not answering the door, apparently patient was feeling feverish she was confused a bit at that time, and her friend called EMS and transported the p atient to the emergency department at [facility], patient was to have an acute febrile illness with a temperature of 103.2, patient had a chest x-ray did not show evidence of acute abnormalities, her urinalysis was negative, she did have a leukocytosis, she was started on IV antibiotic in the form of Zosyn 3.375 g piggyback every 8 hours, patient did not have any source of infection, blood cultures were obtained, infectious disease consultation was obtained, patient stated that she had a bit of loose stool, stool will be checked for C. difficile as well since the patient was on oral antibiotic in the last hospital admission. 10/17: Patient is feeling better today, she is more awake and more alert, she denies any chest pain, shortness of breath, she has no abdominal pain, she did not have any diarrhea today, stool was never collected since the patient did not have any diarrhea, blood culture still pending at the time of dictation, infectious disease consultation still pending, continue IV antibiotic for now, continue to monitor the patient for another 24 hours, patient is scheduled for repeated CT scan of the abdomen pelvis with oral and IV contrast 10/18: Patient is feeling a lot better today, she is more awake and more alert, she had a CT scan of the abdomen pelvis with contrast that was essentially negative except for bilateral small pleural effusion, she denies any chest pain or shortness of breath at this time, she has no coughing or hemoptysis, she continues to be somewhat weak in both lower extremities, likely due to her neuropathy and significant spondylosis in the lumbar spine, patient will be seen and evaluated by physical therapy tomorrow morning likely will be discharged home tomorrow morning versus subacute rehabilitation REVIEW OF SYSTEMS: Constitutional: positive for fever, no chills, no night sweats. Positive for weight change. positive for weakness, fatigue or lethargy. Positive for daytime sleepiness. HEENT: No headache. No blurred vision or double vision, no loss of vision. No loss of Hearing, no ringing in the ears, no dizziness. No nasal drainage or congestion. No epistaxis. No sore throat. Lungs: No shortness of breath, no cough, no sputum production. No wheezing. Reports dyspnea with activity. Cardiovascular: No chest pain, no lower extremity edema. No palpitations. No paroxysmal nocturnal dyspnea. No orthopnea. No lightheadedness or dizziness. No syncopal episodes. Abdominal: Reports abdominal pain. mild nausea nausea,no vomiting. Positive for diarrhea. No constipation. No bloody or tarry stools reports loss of appetite. Genitourinary: No dysuria, increased frequency, urgency. No urinary retention. Musculoskeletal: No myalgias. positive muscle weakness, positive for gait dysfunction, positive for frequent falls. positive for back pain. positive for neck pain. Integumentary: No wounds, no lesions. No rash or pruritus. No unusual bruising. No change in hair or nails. Neurologic: No aphasia. No facial droop. No change in mentation. No head injury. No headache. No paralysis. No paresthesia. Psychiatric: No depression. No anxiety. No mood swings. Endocrine: No abnormal blood sugars. No weight change. PHYSICAL EXAMINATION: General: 78-year-old female laying down in bed in no distress she appears to be back to baseline. HEENT: Head is atraumatic, normocephalic, pupils were equal round reactive to light and recommendation, extraocular muscle movement were intact, sclera nonicteric, conjunctivae were pale, mucous membranes of the mouth are somewhat dry. Neck: Supple, no JVP, normal carotid upstroke bilaterally, no lymphadenopathy. No neck rigidity Chest: Decreased breath sounds at the bases, few rhonchi, no expiratory wheezes, no chest wall tenderness, no intercostal retractions. Heart: First heart sound is normal, second heart sound is normal there is s ystolic ejection murmur 2/6 located in the left sternal border. Abdomen: Soft, nontender, nondistended, positive bowel sounds. Extremities: There is no edema no calf tenderness DP +2 bilaterally. Neurologic examination: Patient is awake alert and oriented X 3 , cranial nerves II-12 appear grossly intact, muscle power was 3 out of 5 in bilateral lower extremities ASSESSMENT AND PLAN: 1. acute febrile illness with altered level of consciousness. Back to baseline, continue patient on Zosyn 3.375 g piggyback every 8 hours, will try to transition to Augmentin 875 mg orally twice every day for the next 7 days, CT scan of the abdomen pelvis is negative, patient did have an MRI of the pancreas not long ago that showed what appears to be a cystic neoplasm versus a sidebranch intraductal mucinous neoplasm that we will follow-up on in the year from now by MRI/MRCP. Infectious diseases following. 2. 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 Patient just had an MRI of the pancreas it was recommended to repeat MRI/MRCP in 1 year. 3. Chronic alcohol use and dependence. Patient counseled about abstinence from alcohol, patient will need to be seen in consultation by physical therapy as well as physical therapy as the patient does complain of severe weakness in both lower leg showing is due to alcoholic polyneuropathy and she may require subacute rehabilitation 4. Moderate persistent asthma. Start the patient on albuterol 2.5 mg nebulization every 4 hours as needed, start the patient on Symbicort 160/4.5 mcg 2 puffs inhalation twice every day. 5. Mixed hyperlipidemia. restart the patient on rosuvastatin 20 mg orally once every day. Monitor lipid panel, keep LDL 55-70 6. Hypertension and hypertensive cardiovascular disease. Patient is currently not on any medication monitor her blood pressure very closely. Patient has lost a lot of weight and her blood pressure is normal. 7. Spondylosis of the cervical spine without myelopathy. Stable at this time. 8. Alcoholic fatty liver disease. Abstinence from alcohol monitor the patient CMP. 10. Medical debility with significant weight loss physical therapy evaluation for possible subacute rehabilitation. 11. GI prophylaxis. Continue Protonix 40 mg orally once every day. 12. DVT prophylaxis. Lovenox 40 mg subcutaneous every 24 hours. 13. Hypokalemia we will replace recheck BMP and magnesium at 6:00 PM. 14. Most likely home with home health care on Friday Objective - Vital Signs Vital signs: Vital Signs Temp 98.3 F 10/19/23 07:56 Pulse 85 10/19/23 07:56 Resp 16 10/19/23 07:56 BP 145/78 10/19/23 07:56 Pulse Ox 97 10/19/23 07:56 FiO2 Intake & Output 10/18/23 10/19/23 10/19/23 18:59 06:59 18:59 Intake Total 900 180 Balance 900 180 Weight 51.363 kg Intake: Intake, IV Titration 900 180 Amount Piperacillin-Tazobactam 3 200 100 .375 gm In Sodium Chloride 0.9% 100 ml @ 25 mls/hr IVPB Q8HR KEE Rx# :[id number] Potassium Chloride 10 meq 400 In Water For Injection 1 100ml.bag @ 100 mls/hr IVPB Q1H KEE Rx#: [id number] Sodium Chloride 0.9% 1, 300 80 000 ml @ 75 mls/hr IV . [id number] ONE Rx#:[id number] Other: # Voids 4 - Labs CBC & Chem 7: 10/18/23 11:45 10/18/23 17:31 Labs: Abnormal Lab Results - Last 24 Hours (Table) 10/18/23 10/18/23 10/18/23 Range/Units 11:45 11:45 17:31 WBC 12.5 H (3.8-10.6) k/uL RBC 3.30 L (3.80-5.40) m/uL MCV 110.7 H (80.0-100.0) fL MCH 35.1 H (25.0-35.0) pg Neutrophils # 9.8 H (1.3-7.7) k/uL Eosinophils # 0.8 H (0-0.7) k/uL Macrocytosis Marked A Potassium 2.7 L* (3.5-5.1) mmol/L Chloride 113 H 110 H (98-107) mmol/L Carbon Dioxide 19 L (22-30) mmol/L Creatinine 0.45 L 0.49 L (0.52-1.04) mg/dL Glucose 121 H (74-99) mg/dL Total Protein 5.2 L (6.3-8.2) g/dL Albumin 2.8 L (3.5-5.0) g/dL Microbiology - Last 24 Hours (Table) 10/17/23 12:19 Blood Culture - Preliminary Blood 10/17/23 12:15 Blood Culture - Preliminary Blood
--- NOTE | 2023-10-19 21:22 | P.PN ---
Subjective Progress Note Date: 10/19/23 Principal diagnosis: Reason for follow-up is fever Patient is a 78-year-old female with a past medical history significant for asthma hypertension hypertensive heart disease hyperlipidemia alcoholism pancreatitis presenting to the hospital with weakness no energy notic ed to be febrile with initial workup negative. On today's evaluation that is 10/19/2023,the patient denies any fever or any chills, patient is breathing comfortably on room air, the patient denies chest pain shortness of breath and no significant cough, patient denies abdominal pain, no nausea vomiting or diarrhea. Patient white count is down to 12.5 creatinine 0.[address] abdomen pelvis did not show any acute abnormality Objective - Vital Signs Vital signs: Vital Signs Temp 98.3 F 10/19/23 07:56 Pulse 85 10/19/23 07:56 Resp 16 10/19/23 07:56 BP 145/78 10/19/23 07:56 Pulse Ox 97 10/19/23 07:56 FiO2 Intake & Output 10/18/23 10/19/23 10/19/23 18:59 06:59 18:59 Intake Total 900 180 Balance 900 180 Weight 51.363 kg Intake: Intake, IV Titration 900 180 Amount Piperacillin-Tazobactam 3 200 100 .375 gm In Sodium Chloride 0.9% 100 ml @ 25 mls/hr IVPB Q8HR KEE Rx# :[id number] Potassium Chloride 10 meq 400 In Water For Injection 1 100ml.bag @ 100 mls/hr IVPB Q1H KEE Rx#: [id number] Sodium Chloride 0.9% 1, 300 80 000 ml @ 75 mls/hr IV . [id number] ONE Rx#:[id number] Other: # Voids 4 - Exam GENERAL DESCRIPTION: An elderly female lying in bed in no distress RESPIRATORY SYSTEM: Unlabored breathing , decreased breath sounds at bases HEART: S1 S2 regular rate and rhythm , ABDOMEN: Soft , no tenderness EXTREMITIES: No edema feet - Labs CBC & Chem 7: 10/18/23 11:45 10/18/23 17:31 Labs: Abnormal Lab Results - Last 24 Hours (Table) 10/18/23 10/18/23 10/18/23 Range/Units 11:45 11:45 17:31 WBC 12.5 H (3.8-10.6) k/uL RBC 3.30 L (3.80-5.40) m/uL MCV 110.7 H (80.0-100.0) fL MCH 35.1 H (25.0-35.0) pg Neutrophils # 9.8 H (1.3-7.7) k/uL Eosinophils # 0.8 H (0-0.7) k/uL Macrocytosis Marked A Potassium 2.7 L* (3.5-5.1) mmol/L Chloride 113 H 110 H (98-107) mmol/L Carbon Dioxide 19 L (22-30) mmol/L Creatinine 0.45 L 0.49 L (0.52-1.04) mg/dL Glucose 121 H (74-99) mg/dL Total Protein 5.2 L (6.3-8.2) g/dL Albumin 2.8 L (3.5-5.0) g/dL Microbiology - Last 24 Hours (Table) 10/17/23 12:19 Blood Culture - Preliminary Blood 10/17/23 12:15 Blood Culture - Preliminary Blood Assessment and Plan (1) Fever of unknown origin Current Visit: Yes Status: Acute Code(s): R50.9 - FEVER, UNSPECIFIED SNOMED Code(s): 1548063 Plan: 1patient with fever in this patient who did have a significant history of pancreatitis from alcoholism with recent concern for possible intraductal versus cystic neoplasm on the basis of abnormal MRI patient did have a negative workup so far including a negative chest x-ray UA has been negative no evidence of any cellulitis joint swelling high clinical suspicion for possible abdominal source with a question of pancreatitis pseudocyst versus abscess. 2patient did have CT of abdominal pelvis did not show any acute intra-abdominal pathology 3patient did have resolution of the fever and the white count did trend down, continue continue the patient on Zosyn 3.375 g every 8 hours while waiting for the culture to finalize. Dictation was produced using [employer] dictation software. please excuse any grammatical, word or spelling errors. Time with Patient: Less than 30
--- NOTE | 2023-10-20 13:15 | P.PN ---
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, alcoholic fatty liver disease, patient was recently hospitalized at [facility] between 10/05/2023 till 10/08/2023 with medical debility due to severe hypomagnesemia and alcohol use, she was found to have a mass in the pancreas ended up going for an MRI of the pancreas that showed evidence of possible of side branch intra ductal neoplasm versus cystic neoplasm it was recommended to repeat MRCP/MRI in a year from now, patient was discharged home and she had the visiting nurse to come and follow-up with the patient, she had a wheelchair along with a walker, she was advised to abstain from alcohol, visiting nurse called me yesterday stated the patient is not answering the door, apparently patient was feeling feverish she was confused a bit at that time, and her friend called EMS and transported the p atient to the emergency department at [facility], patient was to have an acute febrile illness with a temperature of 103.2, patient had a chest x-ray did not show evidence of acute abnormalities, her urinalysis was negative, she did have a leukocytosis, she was started on IV antibiotic in the form of Zosyn 3.375 g piggyback every 8 hours, patient did not have any source of infection, blood cultures were obtained, infectious disease consultation was obtained, patient stated that she had a bit of loose stool, stool will be checked for C. difficile as well since the patient was on oral antibiotic in the last hospital admission. 10/17: Patient is feeling better today, she is more awake and more alert, she denies any chest pain, shortness of breath, she has no abdominal pain, she did not have any diarrhea today, stool was never collected since the patient did not have any diarrhea, blood culture still pending at the time of dictation, infectious disease consultation still pending, continue IV antibiotic for now, continue to monitor the patient for another 24 hours, patient is scheduled for repeated CT scan of the abdomen pelvis with oral and IV contrast 10/18: Patient is feeling a lot better today, she is more awake and more alert, she had a CT scan of the abdomen pelvis with contrast that was essentially negative except for bilateral small pleural effusion, she denies any chest pain or shortness of breath at this time, she has no coughing or hemoptysis, she continues to be somewhat weak in both lower extremities, likely due to her neuropathy and significant spondylosis in the lumbar spine, patient will be seen and evaluated by physical therapy tomorrow morning likely will be discharged home tomorrow morning versus subacute rehabilitation 10/19: Patient sitting up in bed in no apparent distress, she has no chest pain or shortness of breath, she has no fever anymore, she was seen earlier by infectious disease, she is to be maintained on Zosyn until the final result of the cultures, likely will be switched to oral Augmentin 875 mg orally twice every day for 7 days, was seen by physical therapy, likely will need to go to either [facility] versus [facility] in the next 24 hours. REVIEW OF SYSTEMS: Constitutional: positive for fever, no chills, no night sweats. Positive for weight change. positive for weakness, fatigue or lethargy. Positive for daytime sleepiness. HEENT: No headache. No blurred vision or double vision, no loss of vision. No loss of Hearing, no ringing in the ears, no dizziness. No nasal drainage or congestion. No epistaxis. No sore throat. Lungs: No shortness of breath, no cough, no sputum production. No wheezing. Reports dyspnea with activity. Cardiovascular: No chest pain, no lower extremity edema. No palpitations. No paroxysmal nocturnal dyspnea. No orthopnea. No lightheadedness or dizziness. No syncopal episodes. Abdominal: Reports abdominal pain. mild nausea nausea,no vomiting. Positive for diarrhea. No constipation. No bloody or tarry stools reports loss of appetite. Genitourinary: No dysuria, increased frequency, urgency. No urinary retention. Musculoskeletal: No myalgias. positive muscle weakness, positive for gait dysfunction, positive for frequent falls. positive for back pain. positive for neck pain. Integumentary: No wounds, no lesions. No rash or pruritus. No unusual bru ising. No change in hair or nails. Neurologic: No aphasia. No facial droop. No change in mentation. No head injury. No headache. No paralysis. No paresthesia. Psychiatric: No depression. No anxiety. No mood swings. Endocrine: No abnormal blood sugars. No weight change. PHYSICAL EXAMINATION: General: 78-year-old female laying down in bed in no distress she appears to be back to baseline. HEENT: Head is atraumatic, normocephalic, pupils were equal round reactive to light and recommendation, extraocular muscle movement were intact, sclera nonicteric, conjunctivae were pale, mucous membranes of the mouth are somewhat dry. Neck: Supple, no JVP, normal carotid upstroke bilaterally, no lymphadenopathy. No neck rigidity Chest: Decreased breath sounds at the bases, few rhonchi, no expiratory wheezes, no chest wall tenderness, no intercostal retractions. Heart: First heart sound is normal, second heart sound is normal there is systolic ejection murmur 2/6 located in the left sternal border. Abdomen: Soft, nontender, nondistended, positive bowel sounds. Extremities: There is no edema no calf tenderness DP +2 bilaterally. Neurologic examination: Patient is awake alert and oriented X 3 , cranial nerves II-12 appear grossly intact, muscle power was 3 out of 5 in bilateral lower extremities ASSESSMENT AND PLAN: 1. acute febrile illness with altered level of consciousness. Back to baseline, continue patient on Zosyn 3.375 g piggyback every 8 hours, will try to transition to Augmentin 875 mg orally twice every day for the next 7 days, CT scan of the abdomen pelvis is negative, patient did have an MRI of the pancreas not long ago that showed what appears to be a cystic neoplasm versus a sidebranch intraductal mucinous neoplasm that we will follow-up on in the year from now by MRI/MRCP. Infectious diseases following. 2. 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 Patient just had an MRI of the pancreas it was recommended to repeat MRI/MRCP in 1 year. 3. Chronic alcohol use and dependence. Patient counseled about abstinence from alcohol, patient will need to be seen in consultation by physical therapy as well as physical therapy as the patient does complain of severe weakness in both lower leg showing is due to alcoholic polyneuropathy and she may require subacute rehabilitation 4. Moderate persistent asthma. Start the patient on albuterol 2.5 mg nebulization every 4 hours as needed, start the patient on Symbicort 160/4.5 mcg 2 puffs inhalation twice every day. 5. Mixed hyperlipidemia. restart the patient on rosuvastatin 20 mg orally once every day. Monitor lipid panel, keep LDL 55-70 6. Hypertension and hypertensive cardiovascular disease. Patient is currently not on any medication monitor her blood pressure very closely. Patient has lost a lot of weight and her blood pressure is normal. 7. Spondylosis of the cervical spine without myelopathy. Stable at this time. 8. Alcoholic fatty liver disease. Abstinence from alcohol monitor the patient CMP. 10. Medical debility with significant weight loss physical therapy evaluation for possible subacute rehabilitation. 11. GI prophylaxis. Continue Protonix 40 mg orally once every day. 12. DVT prophylaxis. Lovenox 40 mg subcutaneous every 24 hours. 13. Hypokalemia we will replace recheck BMP and magnesium at 6:00 PM. 14. Subacute rehabilitation in the next 24 hours hopefully Objective - Vital Signs Vital signs: Vital Signs Temp 98.1 F 10/20/23 12:08 Pulse 104 H 10/20/23 12:08 Resp 16 10/20/23 12:08 BP 98/67 10/20/23 12:08 Pulse Ox 96 10/20/23 12:08 FiO2 Intake & Output 10/19/23 10/20/23 10/20/23 18:59 06:59 18:59 Intake Total 1820 Balance 1820 Intake: Intake, IV Titration 200 Amount Piperacillin-Tazobactam 3 200 .375 gm In Sodium Chloride 0.9% 100 ml @ 25 mls/hr IVPB Q8HR [facility] Rx# :[id number] Oral 1620 Other: # Voids 5 1 1 # Bowel Movements 1 - Labs CBC & Chem 7: 10/18/23 11:45 10/18/23 17:31 Labs: Microbiology - Last 24 Hours (Table) 10/17/23 12:19 Blood Culture - Preliminary Blood 10/17/23 12:15 Blood Culture - Preliminary Blood
--- NOTE | 2023-10-20 23:03 | P.PN ---
Subjective Progress Note Date: 10/20/23 Principal diagnosis: Reason for follow-up is fever Patient is a 78-year-old female with a past medical history significant for asthma hypertension hypertensive heart disease hyperlipidemia alcoholism pancreatitis presenting to the hospital with weakness no energy notic ed to be febrile with initial workup negative. On today's evaluation that is 10/20/2023,the patient remains to be afebrile, patient is on 2 L nasal cannula supplemental oxygen and denies any shortness of breath no chest pain or cough.Patient denies having any nausea or vomiting, no abdominal pain and no diarrhea has been reported, patient mention feeling better. Patient did not have any lab draw today blood culture so far negative Objective - Vital Signs Vital signs: Vital Signs Temp 98.1 F 10/20/23 12:08 Pulse 104 H 10/20/23 12:08 Resp 16 10/20/23 12:08 BP 98/67 10/20/23 12:08 Pulse Ox 96 10/20/23 12:08 FiO2 Intake & Output 10/19/23 10/20/23 10/20/23 18:59 06:59 18:59 Intake Total 1820 Balance 1820 Intake: Intake, IV Titration 200 Amount Piperacillin-Tazobactam 3 200 .375 gm In Sodium Chloride 0.9% 100 ml @ 25 mls/hr IVPB Q8HR [facility] Rx# :[id number] Oral 1620 Other: # Voids 5 1 1 # Bowel Movements 1 - Exam GENERAL DESCRIPTION: An elderly female lying in bed in no distress RESPIRATORY SYSTEM: Unlabored breathing , decreased breath sounds at bases HEART: S1 S2 regular rate and rhythm , ABDOMEN: Soft , no tenderness EXTREMITIES: No edema feet - Labs CBC & Chem 7: 10/18/23 11:45 10/18/23 17:31 Labs: Microbiology - Last 24 Hours (Table) 10/17/23 12:19 Blood Culture - Preliminary Blood 10/17/23 12:15 Blood Culture - Preliminary Blood Assessment and Plan (1) Fever of unknown origin Current Visit: Yes Status: Acute Code(s): R50.9 - FEVER, UNSPECIFIED SNOMED Code(s): 1484037 Plan: 1patient with fever in this patient who did have a significant history of pancreatitis from alcoholism with recent concern for possible intraductal versus cystic neoplasm on the basis of abnormal MRI patient did have a negative workup so far including a negative chest x-ray UA has been negative no evidence of any cellulitis joint swelling high clinical suspicion for possible abdominal source with a question of pancreatitis pseudocyst versus abscess. 2patient did have CT of abdominal pelvis did not show any acute intra-abdominal pathology 3patient did have resolution of the fever, we will repeat a CBC with a.m. lab to make sure white count normalized continue with the Zosyn if the culture remains to be negative the patient remains to be afebrile we will consider 10- day course of oral Ceftin on discharge concern for possible cholangitis as no other obvious focus of infection Dictation was produced using [employer] dictation software. please excuse any grammatical, word or spelling errors. Time with Patient: Less than 30
[2023-10-21 08:34] LABS: Basophils % (A) 1.5 %; Eosinophils # (A) 0.98 X 10*3/uL (0.04-0.35); Eosinophils % (A) 7.5 %; HCT 33.9 % (37.2-46.3); HGB 11.1 g/dL (12.0-15.0); Lymphocytes # (A) 2.29 X 10*3/uL (0.90-5.00); Lymphocytes % (A) 17.6 %; MCH 34.4 pg (27.0-32.0); MCHC 32.7 g/dL (32.0-37.0); Monocytes # (A) 1.49 X 10*3/uL (0.20-1.00); Monocytes % (A) 11.4 %; NRBC Per 100 WBC 0 X 10*3/uL (0.00-0.01); Neutrophils # (A) 7.96 X 10*3/uL (1.80-7.70); Neutrophils % (A) 61.1 %; Platelet Count 322 X 10*3/uL (140-440); RBC 3.23 X 10*6/uL (4.10-5.20); WBC 13.04 X 10*3/uL (4.50-10.00)
[2023-10-21 08:54] LABS: Blood Urea Nitrogen 7.1 mg/dL (9.0-27.0); Carbon Dioxide 20.1 mmol/L (21.6-31.8); Chloride 112 mmol/L (96-109); Glucose 103 mg/dL (70-110); Sodium 144 mmol/L (135-145)
[2023-10-21 08:55] LABS: ALT 13 U/L (8-44); AST 23 U/L (13-35); Albumin 3.2 g/dL (3.8-4.9); Albumin/Globulin Ratio 1.28 Ratio (1.60-3.17); Alkaline Phosphatase 66 U/L (41-126); Calcium 9.2 mg/dL (8.7-10.3); Globulin 2.5 g/dL (1.6-3.3); Total Bilirubin 0.6 mg/dL (0.3-1.2); Total Protein 5.7 g/dL (6.2-8.2)
--- NOTE | 2023-10-21 11:11 | CDI ---
Documentation Clarification Form Date: 10/21/2023 09:53:13 AM From: Fannie Green RN CCDS Phone: [phone] Admit Date: 10/17/2023 05:01:00 PM Patient Name: Tika Villeda Visit Number: [id number] Discharge Date: ATTENTION: The Clinical Documentation Specialists (CDI) and [facility] Coding Staff appreciate your assistance in clarifying documentation. Please respond to the clarification below the line at the bottom and electronically sign. The CDI & [facility] Coding staff will review the response and follow-up if needed. Please note: Queries are made part of the Legal Health Record. If you have any questions, please contact the author of this message via ITS. Doctor: Valentine Leroy Your patient has the documented symptom of Altered Level of Consciousness. 10/16, HP. Additional clarification regarding the etiology/cause of this symptom is requested. History/Risk Factors: 78 year old female presents to the ED via EMS for confusion and acute fever. Medical history: Admission 10/04 10/07 with medical debility due to severe hypomagnesemia and alcohol use, mass in pancreas, HTN, Cardiovascular disease, Moderate persistent Asthma, Alcoholic fatty liver and medical debility. Clinical Indicators: VSS, 10/16: B/P 145/85; 123; 103.3F rectal; 24; SpO2 91% ra Labs: Wbc 22.8, Neutrophils 20.8, Plasma lactic acid 2.2 X Ray, 10/16: Mild inflation. Mild interstitial prominence without consolidation. Trace effusion. CT ABD Pelvis, 10/17: Hepatic steatosis. Trace bilateral effusions left greater than right. Treatment: 10/16 Tylenol po x 1; 10/16 Ibuprofen po x 1; 10/16 Zosyn ivpb x 1, 0.9NS 1.5L IV fluid bolus, 10/16 Ceftriaxone IVPB x 1; 10/17 Zosyn IVPB Q8H Please clarify the etiology of the symptom of Altered Level Consciousness: [ x ] Metabolic Encephalopathy due to fever [ ] Other condition (please specify) [ ] Unable to determine (Template Last Revised: May 2020) MTDD
--- NOTE | 2023-10-21 11:28 | CDI ---
Documentation Clarification Form Date: 10/21/2023 11:13:38 AM From: Fannie Green RN CCDS Phone: [phone] Admit Date: 10/17/2023 05:01:00 PM Patient Name: Tika Villeda Visit Number: [id number] Discharge Date: ATTENTION: The Clinical Documentation Specialists (CDI) and [facility] Coding Staff appreciate your assistance in clarifying documentation. Please respond to the clarification below the line at the bottom and electronically sign. The CDI & [facility] Coding staff will review the response and follow-up if needed. Please note: Queries are made part of the Legal Health Record. If you have any questions, please contact the author of this message via ITS. Doctor: Valentine Leroy The Registered Dietitian assessment on 10/17 indicated the patient is underweight. Based on this information and the findings below, is there an additional diagnosis that is clinically appropriate for this patient? History/Risk Factors: 78 year old female presents to the ED via EMS for confusion and acute fever. Medical history: Admission 10/04 10/07 with medical debility due to severe hypomagnesemia and alcohol use, mass in pancreas, HTN, Cardiovascular disease, Moderate persistent Asthma, Alcoholic fatty liver and medical debility. 10/16, HP. Clinical Indicators: 10/16, HP: Medical debility with significant weight loss Nutritional Consult, 10/17: Wgt 51.363kg Hgt 5ft 5in BMI 18.8 Estimated needs in Kcals: Energy formula for estimated Nutritional needs 30- 35Kcals/kg Energy Needs [id number] Kcal for weight gain Estimated Needs Protein range 1.25gram/kg; estimated protein 64grams/day Weight= Underweight related to predicted suboptimal energy intake and ETOH abuse. As evidenced by BMI =18.8kg/m2 low for age. Treatment: General Healthful diet, medical food supplement, diet education, Monitoring oral intake and Supplement intake. Supplements: Ensure Enlive BID Is there an additional diagnosis that is clinically appropriate for this patient? [ x] Moderate Protein-Calorie Malnutrition [ ] Severe Protein-Calorie Malnutrition [ ] Other condition, please specify [ ] Unable to Determine In responding to this query, please exercise your independent professional judgment. The [facility] Coding Staff and Clinical Documentation Specialists appreciate your assistance in clarifying documentation, maintaining compliance with coding guidelines, accurately documenting patients condition and capturing severity of illness. The fact that a question is asked does not imply that any particular answer is desired or expected. Communication forms are a method of clarifying documentation and are made part of the Legal Health Record. Thank you in advance for your clarification. Last Reviewed September 2022 Reference: Using the ASPEN Guidelines, Undernutrition (Malnutrition) is characterized by at least two of the following six findings. The severity can be determined based on the criteria listed below. Malnutrition Characteristics for Moderate and Severe Malnutrition Type of Malnutrition Acute Illness or Injury Chronic Illness Degree of Malnutrition Non-severe (moderate) Malnutrition Severe Malnutrition Non-severe (moderate) Malnutrition Severe Malnutrition Energy Intake <75% for >7 days = 50% for = 5 days <75% for = 1 month =75% for = 1 month Weight Loss 1-2% in one week, 5% in 1 month, 7.5% in 3 months 2% in one week, >5% in 1 month, >7.5% in 3 months 5% in one month, 7.5% in 3 months, 10% in 6 months, 20% in 1 year >5% in one month, >7.5% in 3 months, >10% in 6 months, >20% in 1 year Body Fat Wasting Mild Moderate Mild Severe Muscle Wasting Mild Moderate Mild Severe Presence of Edema Mild Moderate to Severe Mild Severe Floor Helper Strength Not applicable Measurably Reduced Not applicable Measurably Reduced Source: Brooks FernandezV, Cassidy P, Adam G, et al. Consensus statement: Academy of Nutrition and Dietetics and [place] Society for Parenteral and Enteral Nutrition: characteristics recommended for the identification and documentation of adult malnutrition (undernutrition).MEGHANN J Parenter Enteral Nutr. 2012;36(3):275-283. (Template Last Revised: September 2022) MTDD
--- NOTE | 2023-10-21 11:44 | CDI ---
Documentation Clarification Form Date: 10/21/2023 11:31:27 AM From: Fannie Green Phone: [phone] Admit Date: 10/17/2023 05:01:00 PM Patient Name: Tika Villeda Visit Number: [id number] Discharge Date: ATTENTION: The Clinical Documentation Specialists (CDI) and [facility] Coding Staff appreciate your assistance in clarifying documentation. Please respond to the clarification below the line at the bottom and electronically sign. The CDI & [facility] Coding staff will review the response and follow-up if needed. Please note: Queries are made part of the Legal Health Record. If you have any questions, please contact the author of this message via ITS. Doctor/Provider: Valentine Leroy The patient has temperature of 103.3 F rectal, Wbc 22.8, HR 123, VSS and labs 10/16. Based on this information and the findings below, is there an additional diagnosis that is clinically appropriate for this patient? History/Risk Factors: 78 year old female presents to the ED via EMS for confusion and acute fever. Medical history: Admission 10/04 10/07 with medical debility due to severe hypomagnesemia and alcohol use, mass in pancreas, HTN, Cardiovascular disease, Moderate persistent Asthma, Alcoholic fatty liver and medical debility. 10/16, HP. Clinical Indicators: 10/16, Wbc 22.8 10/16, Plasma lactic acid 2.2 X Ray, 10/16: Mild inflation. Mild interstitial prominence without consolidation. Trace effusion. CT ABD Pelvis, 10/17: Hepatic steatosis. Trace bilateral effusions left greater than right Blood cultures: VSS, 10/16: B/P 145/85; 123; 103.3F rectal; 24; SpO2 91% ra 10/19, ID note: patient did have resolution of the fever, we will repeat a CBC with a.m. lab to make sure white count normalized continue with the Zosyn if the culture remains to be negative the patient remains to be afebrile we will consider 10- day course of oral Ceftin on discharge concern for possible cholangitis as no other obvious focus of infection. 10/16, HP: patient was recently hospitalized at [facility] between 10/05/2023 till 10/08/2023 with medical debility due to severe hypomagnesemia and alcohol use, she was found to have a mass in the pancreas ended up going for an MRI of the pancreas that showed evidence of possible of side branch intra ductal neoplasm versus cystic neoplasm it was recommended to repeat MRCP/MRI in a year from now Treatment: 10/16 Tylenol po x 1; 10/16 Ibuprofen po x 1 ID Consult: See above Antibiotics: 10/16 Zosyn ivpb x 1, 10/16 Ceftriaxone IVPB x 1; 10/17 Zosyn IVPB Q8H IV Bolus: 10/16 0.9NS 1.5L IV Is there an additional diagnosis that is clinically appropriate for this patient? [ ] Sepsis, present on admission secondary to cholangitis [ ] Colangitis [ ] Other, please specify [ x] Unable to determine SIRS Criteria: 2 or more of the following may indicate SIRS Temperature < 96.8F (36C) or > 101.0F (38.3C) Heart Rate > 90 bpm Respiratory Rate > 20 breaths/min or PaCO2 < 32 mmHg White Blood Cell Count > 12,000 or < 4,000 cells/mm3 or > 10% bands (Template Last Reviewed: March 2022) CRISTINAD
--- NOTE | 2023-10-21 13:12 | P.DS ---
Providers Date of admission: 10/17/23 17:01 Expected date of discharge: 10/21/23 Attending physician: Valentine Leroy Consults: 10/17/23 16:23 Consult Physician Stat Consulting Provider: Asim Mckeon Consult Reason/Comments: Fever of unknown origin Do you want consulting provider notified?: Yes Primary care physician: Valentine Leroy Hospital Course: HISTORY OF PRESENT ILLNESS: This is a 78-year-old female with a previous medical history significant for hypertension and hypertensive cardiovascular disease, hyperlipidemia, 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, moderate persistent asthma, recurrent pancreatitis due to alcohol use and dependence, 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, alcoholic fatty liver disease, patient was recently hospitalized at [facility] between 10/05/2023 till 10/08/2023 with medical debility due to severe hypomagnesemia and alcohol use, she was found to have a mass in the pancreas ended up going for an MRI of the pancreas that showed evidence of possible of side branch intra ductal neoplasm versus cystic neoplasm it was recommended to repeat MRCP/MRI in a year from now, patient was discharged home and she had the visiting nurse to come and follow-up with the patient, she had a wheelchair along with a walker, she was advised to abstain from alcohol, visiting nurse called me yesterday stated the patient is not answering the door, apparently patient was feeling feverish she was confused a bit at that time, and her friend called EMS and transported the patient to the emergency department at [facility], patient was to have an acute febrile illness with a temperature of 103.2, patient had a chest x-ray did not show evidence of acute abnormalities, her urinalysis was negative, she did have a leukocytosis, she was started on IV antibiotic in the form of Zosyn 3.375 g piggyback every 8 hours, patient did not have any source of infection, blood cultures were obtained, inf ectious disease consultation was obtained, patient stated that she had a bit of loose stool, stool will be checked for C. difficile as well since the patient was on oral antibiotic in the last hospital admission. 10/17: Patient is feeling better today, she is more awake and more alert, she denies any chest pain, shortness of breath, she has no abdominal pain, she did not have any diarrhea today, stool was never collected since the patient did not have any diarrhea, blood culture still pending at the time of dictation, infectious disease consultation still pending, continue IV antibiotic for now, continue to monitor the patient for another 24 hours, patient is scheduled for repeated CT scan of the abdomen pelvis with oral and IV contrast 10/18: Patient is feeling a lot better today, she is more awake and more alert, she had a CT scan of the abdomen pelvis with contrast that was essentially negative except for bilateral small pleural effusion, she denies any chest pain or shortness of breath at this time, she has no coughing or hemoptysis, she continues to be somewhat weak in both lower extremities, likely due to her neuropathy and significant spondylosis in the lumbar spine, patient will be seen and evaluated by physical therapy tomorrow morning likely will be discharged home tomorrow morning versus subacute rehabilitation 10/19: Patient sitting up in bed in no apparent distress, she has no chest pain or shortness of breath, she has no fever anymore, she was seen earlier by infectious disease, she is to be maintained on Zosyn until the final result of the cultures, likely will be switched to oral Augmentin 875 mg orally twice every day for 7 days, was seen by physical therapy, likely will need to go to either [facility] versus [facility] in the next 24 hours. 10/20: Sitting up in bed in no apparent distress, she denies any chest pain, shortness of breath, she is ambulating using a walker, she continues to be weaker in both lower extremities, we will try to get the patient to subacute rehabilitation at [facility] since the patient is not able to get to [facility] at this time, and she does not want to travel to [facility] or [facility] at this point, I will arrange for the patient to go to [facility] if not available then the patient can go home and follow-up with the visiting nurse visiting and she will try to help with the patient at this point. Discharge diagnoses: 1. acute febrile illness with altered level of consciousness. 2. 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 Patient just had an MRI of the pancreas it was recommended to repeat MRI/MRCP in 1 year. 3. Chronic alcohol use and dependence. 4. Moderate persistent asthma. 5. Mixed hyperlipidemia. 6. Hypertension and hypertensive cardiovascular disease. 7. Spondylosis of the cervical spine without myelopathy. 8. Alcoholic fatty liver disease. 10. Medical debility with significant weight loss physical therapy evaluation for possible subacute rehabilitation. 11. Hypokalemia Patient Condition at Discharge: Stable Plan - Discharge Summary Discharge Rx Participant: No New Discharge Prescriptions: No Action Albuterol Sulfate [Albuterol Sulfate Hfa] 1 - 2 puff INHALATION RT-QID PRN PRN Reason: Shortness Of Breath Rosuvastatin [Crestor] 10 mg PO DAILY Pregabalin [Lyrica] 75 mg PO HS #3 cap Budesonide-Formot 160-4.5 Mcg [Symbicort 160-4.5 Mcg Inhaler] 2 puff INHALATION RT-BID #1 each Discharge Medication List Rosuvastatin [Crestor] 10 mg PO DAILY 10/05/23 [History] Budesonide-Formot 160-4.5 Mcg [Symbicort 160-4.5 Mcg Inhaler] 2 puff INHALATION RT-BID #1 each 10/08/23 [Rx] Pregabalin [Lyrica] 75 mg PO HS #3 cap 10/08/23 [Rx] Albuterol Sulfate [Albuterol Sulfate Hfa] 1 - 2 puff INHALATION RT-QID PRN 10/17/23 [History] Follow up Appointment(s)/Referral(s): Valentine Leroy MD [Primary Care Provider] - 1-2 days [facility] Visiting Nurse, [NON-STAFF] - 1 Week
[2023-10-21 14:03] VITALS: BP 130/73; PULSE 85; RESP 20; TEMP 98.5
--- NOTE | 2023-10-21 21:57 | P.PN ---
Subjective Progress Note Date: 10/21/23 Principal diagnosis: Reason for follow-up is fever Patient is a 78-year-old female with a past medical history significant for asthma hypertension hypertensive heart disease hyperlipidemia alcoholism pancreatitis presenting to the hospital with weakness no energy notic ed to be febrile with initial workup negative. On today's evaluation that is 10/21/2023, the patient continues to be afebrile, the patient is on room air and breathing comfortably, the Pt denies having any chest pain or cough, the patient denies having any abdominal pain no vomiting or any diarrhea has been reported by the nursing staff. Patient mention feeling better overall Patient white count is 13.04, creatinine 0.5 blood culture remains to be negative Objective - Vital Signs Vital signs: Vital Signs Temp 98.0 F 10/21/23 07:22 Pulse 104 H 10/21/23 07:22 Resp 18 10/21/23 07:22 BP 124/62 10/21/23 07:22 Pulse Ox 99 10/21/23 07:22 FiO2 Intake & Output 10/20/23 10/21/23 10/21/23 18:59 06:59 18:59 Weight 51.363 kg Other: # Voids 1 2 1 # Bowel Movements 1 1 - Exam GENERAL DESCRIPTION: An elderly female lying in bed in no distress RESPIRATORY SYSTEM: Unlabored breathing , decreased breath sounds at bases HEART: S1 S2 regular rate and rhythm , ABDOMEN: Soft , no tenderness EXTREMITIES: No edema feet - Labs CBC & Chem 7: 10/21/23 04:53 10/21/23 04:53 Labs: Abnormal Lab Results - Last 24 Hours (Table) 10/21/23 10/21/23 Range/Units 04:53 04:53 WBC 13.04 H (4.50-10.00) X 10*3/uL RBC 3.23 L (4.10-5.20) X 10*6/uL Hgb 11.1 L (12.0-15.0) g/dL Hct 33.9 L (37.2-46.3) % MCV 105.0 H (80.0-97.0) FL MCH 34.4 H (27.0-32.0) pg RDW 15.0 H (11.5-14.5) % MPV 14.0 H (9.5-12.2) FL Immature Gran # 0.12 H (0.00-0.04) X 10*3/uL Neutrophils # 7.96 H (1.80-7.70) X 10*3/uL Monocytes # 1.49 H (0.20-1.00) X 10*3/uL Eosinophils # 0.98 H (0.04-0.35) X 10*3/uL Basophils # 0.20 H (0.00-0.10) X 10*3/uL Chloride 112 H (96-109) mmol/L Carbon Dioxide 20.1 L (21.6-31.8) mmol/L BUN 7.1 L (9.0-27.0) mg/dL Creatinine 0.5 L (0.6-1.5) mg/dL C-Reactive Protein 2.10 H (0.00-0.80) mg/dL Total Protein 5.7 L (6.2-8.2) g/dL Albumin 3.2 L (3.8-4.9) g/dL Albumin/Globulin Ratio 1.28 L (1.60-3.17) Ratio Microbiology - Last 24 Hours (Table) 10/17/23 12:19 Blood Culture - Preliminary Blood 10/17/23 12:15 Blood Culture - Preliminary Blood Assessment and Plan (1) Fever of unknown origin Status: Acute Code(s): R50.9 - FEVER, UNSPECIFIED SNOMED Code(s): 9270087 Plan: 1patient with fever in this patient who did have a significant history of pancreatitis from alcoholism with recent concern for possible intraductal versus cystic neoplasm on the basis of abnormal MRI patient did have a negative workup so far including a negative chest x-ray UA has been negative no evidence of any cellulitis joint swelling high clinical suspicion for possible abdominal source with a question of pancreatitis pseudocyst versus abscess. 2patient did have CT of abdominal pelvis did not show any acute intra-abdominal pathology 3patient did have resolution of the fever, cultures have been negative patient feeling better will consider a 10-day course of oral Ceftin on discharge and close outpatient follow-up Dictation was produced using [employer] dictation software. please excuse any gr ammatical, word or spelling errors. Time with Patient: Less than 30
== END 2023-10-21 16:49 | DRG 864 ==
LOC: EC 11:47 → 5NMEDONC 17:01
PROVIDERS: ADMIT Internal Medicine; ATTEND Internal Medicine
DX: R50.9 Fever, unspecified (principal); G93.41 Metabolic encephalopathy; E44.0 Moderate protein-calorie malnutrition; Z68.1 Body mass index [BMI] 19.9 or less, adult; Z11.52 Encounter for screening for COVID-19; J45.40 Moderate persistent asthma, uncomplicated; E78.2 Mixed hyperlipidemia; Z79.899 Other long term (current) drug therapy; I10 Essential (primary) hypertension; M47.812 Spondylosis without myelopathy or radiculopathy, cervical region; K70.0 Alcoholic fatty liver; R53.81 Other malaise; R63.4 Abnormal weight loss; E87.6 Hypokalemia; R53.1 Weakness; G62.1 Alcoholic polyneuropathy; M47.892 Other spondylosis, cervical region; Z79.51 Long term (current) use of inhaled steroids; M47.816 Spondylosis without myelopathy or radiculopathy, lumbar region; Z87.891 Personal history of nicotine dependence; Z90.81 Acquired absence of spleen; Z87.19 Personal history of other diseases of the digestive system; Z98.42 Cataract extraction status, left eye; Z98.41 Cataract extraction status, right eye; Z80.0 Family history of malignant neoplasm of digestive organs; Z82.49 Family history of ischemic heart disease and other diseases of the circulatory system; Z82.5 Family history of asthma and other chronic lower respiratory diseases
CPT/HCPCS: 36415; 71046; 74177; 80048; 80053; 80306; 80320; 81001; 83605; 83735; 85025; 85610; 85730; 86140; 87040; 87324; 87636; 93005; 94640; 96374; 96375; 99285

== ENCOUNTER 2023-10-23 16:25 | Emergency (ER) | payer MEDICARE, OTHER ==
[2023-10-23 16:50] VITALS: RESP 18; TEMP 97.9
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
[2023-10-23 17:43] LABS: Basophils # (A) 0.2 k/uL (0-0.2); Basophils % (A) 1 %; Eosinophils # (A) 0.7 k/uL (0-0.7); Eosinophils % (A) 5 %; HCT 38.8 % (34.0-46.0); HGB 12.2 gm/dL (11.4-16.0); Hypochromasia Marked; Lymphocytes # (A) 4.1 k/uL (1.0-4.8); Lymphocytes % (A) 28 %; MCH 34.1 pg (25.0-35.0); MCHC 31.4 g/dL (31.0-37.0); MCV 108.8 fL (80.0-100.0); Macrocytosis Marked; Mean Platelet Volume 11.5; Monocytes # (A) 0.9 k/uL (0-1.0); Monocytes % (A) 6 %; Neutrophils # (A) 8.6 k/uL (1.3-7.7); Neutrophils % (A) 58 %; Platelet Count 468 k/uL (150-450); RBC 3.56 m/uL (3.80-5.40); RDW 14.9 % (11.5-15.5); WBC 14.9 k/uL (3.8-10.6)
[2023-10-23 18:12] LABS: African American GFR (CKD) >90 (>60 ml/min/1.73 sqM); Anion Gap 9 mmol/L; Blood Urea Nitrogen 8 mg/dL (7-17); Calcium 9.9 mg/dL (8.4-10.2); Carbon Dioxide 22 mmol/L (22-30); Chloride 115 mmol/L (98-107); Glucose 87 mg/dL (74-99); Non-African American GFR(CKD) >90 (>60 ml/min/1.73 sqM); Potassium 4.5 mmol/L (3.5-5.1); Sodium 146 mmol/L (137-145)
[2023-10-23 18:24] LABS: Alcohol 230 mg/dL
[2023-10-24 01:45] VITALS: BP 110/68; PULSE 89
== END 2023-10-24 01:45 | disposition home or self-care (01) ==
LOC: EC 16:25
DX: F10.129 Alcohol abuse with intoxication, unspecified (principal); Z88.5 Allergy status to narcotic agent; Z87.891 Personal history of nicotine dependence; Y90.7 Blood alcohol level of 200-239 mg/100 ml
CPT/HCPCS: 36415; 93005; 80048; 85025; 99285; G0480; 80320

== ENCOUNTER 2024-08-10 15:28 | Emergency (ER) | payer MEDICARE, OTHER ==
[2024-08-10 15:36] VITALS: TEMP 98.4
[2024-08-10 16:46] LABS: Basophils # (A) 0.15 10*3/uL (0.00-0.10); Basophils % (A) 1.9 %; Eosinophils # (A) 0.13 10*3/uL (0.04-0.35); Eosinophils % (A) 1.7 %; HCT 37.4 % (37.2-46.3); HGB 13.4 g/dL (12.0-15.0); Lymphocytes # (A) 2.23 10*3/uL (0.90-5.00); MCH 36.3 pg (27.0-32.0); MCHC 35.8 g/dL (32.0-37.0); MCV 101.4 fL (80.0-97.0); Monocytes # (A) 0.73 10*3/uL (0.20-1.00); Monocytes % (A) 9.5 %; Neutrophils # (A) 4.44 10*3/uL (1.80-7.70); Neutrophils % (A) 57.6 %; Platelet Count 154 10*3/uL (140-440); RBC 3.69 10*6/uL (4.10-5.20); RDW 15.5 % (11.5-14.5)
[2024-08-10 16:57] LABS: ALT 29 U/L (4-34); African American GFR (CKD) >90 (>60 ml/min/1.73 sqM); Albumin 4.7 g/dL (3.5-5.0); Anion Gap 15 mmol/L; Blood Urea Nitrogen 10 mg/dL (7-17); Calcium 9.7 mg/dL (8.4-10.2); Carbon Dioxide 25 mmol/L (22-30); Chloride 107 mmol/L (98-107); Glucose 85 mg/dL (74-99); Non-African American GFR(CKD) >90 (>60 ml/min/1.73 sqM); Sodium 147 mmol/L (137-145); Total Bilirubin 0.8 mg/dL (0.2-1.3)
[2024-08-10 16:58] LABS: AST 84 U/L (14-36); Potassium 4.6 mmol/L (3.5-5.1)
[2024-08-10 16:59] LABS: Alkaline Phosphatase 60 U/L (38-126); Magnesium 1.6 mg/dL (1.6-2.3)
--- NOTE | 2024-08-10 17:07 | XR ---
EXAMINATION TYPE: XR tibia fibula LT DATE OF EXAM: 08/10/2024 4:52 PM INDICATION: Patient age:Female; 79 years old; Reason for study: left lower leg pain; PHH. pain COMPARISON: None TECHNIQUE: The left tibia/fibula was examined in AP and lateral projections. FINDINGS: No evidence of any acute osseous pathology, joint dislocation, or soft tissue swelling is n oted. No osseous erosion or periosteal reaction are identified. No radiopaque foreign body. Minimal v ascular calcifications. IMPRESSION: No evidence of acute fracture. [facility], , 08/10/2024 5:05 PM
--- NOTE | 2024-08-10 17:45 | US ---
EXAMINATION TYPE: US venous doppler duplex LE LT DATE OF EXAM: 08/10/2024 5:35 PM COMPARISON: NONE CLINICAL INDICATION: Female, 79 years old with history of left lower leg pain; patient states left pa in. no swelling redness or other symptoms. no hx dvt. not on thinners, Pain TECHNIQUE: The lower extremity deep venous system is examined utilizing real time linear array sonog jammie with graded compression, color doppler sonography, and spectral doppler. SIDE PERFORMED: Left FINDINGS: VESSELS IMAGED: Common Femoral Vein Deep Femoral Vein Greater Saphenous Vein * Femoral Vein Popliteal Vein Small Saphenous Vein * Proximal Calf Veins (* superficial vessels) Left Leg: Negative for DVT, Color Doppler imaging shows patency of the vessels. Spectral waveforms a re within normal limits. IMPRESSION: No evidence of deep vein thrombosis of the left lower extremity. [facility], , 08/10/2024 5:43 PM
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
[2024-08-10 19:25] VITALS: BP 143/90; PULSE 78; RESP 19
== END 2024-08-10 19:25 | disposition home or self-care (01) ==
LOC: EC 15:28
DX: M79.605 Pain in left leg (principal); Z88.5 Allergy status to narcotic agent; Z87.891 Personal history of nicotine dependence
CPT/HCPCS: 36415; 80053; 83735; 85025; 99284